=== PATIENT | female | born 1985 | race African-American/Black ===

== ENCOUNTER 2016-10-25 13:32 | Emergency (ER) | payer OTHER ==
[2016-10-25 14:43] LABS: Glucose,Whole Blood 519 mg/dL (75-99)
[2016-10-25] MEDS ORDERED: SODIUM CHLORIDE 0.9% 1,000 ML IV ONE ×2 (14:43→17:30)
[2016-10-25] MEDS ORDERED: SODIUM CHLORIDE 0.9% 1,000 ML IV SCH (14:45)
--- NOTE | 2016-10-25 14:56 | ED ---
Back Pain HPI - General Chief Complaint: Back Pain/Injury Stated Complaint: Leg and Back Pain Time Seen by Provider: 10/25/16 14:17 Source: patient, RN notes reviewed, old records reviewed Limitations: no limitations - History of Present Illness Initial Comments: Is a 31-year-old female chief complaint of bilateral leg cramps for the past few days. Patient states she also has some lower back pain. She reports that she's had lower back pain with this previously diagnosed with a UTI. Just states she is a type II diabetic and has not been taking her Lantus or Humalog for the past 3 weeks. She does not take her blood sugar she has an elevated glucometer. Patient states that she feels thirsty and has been taking more frequently. She denies any fever or chills, abdominal pain, nausea or vomiting. - Related Data Home Medications Medication Instructions Recorded Confirmed INSULIN LISPRO (humaLOG) [humaLOG 15 unit SQ AC-TID 10/09/14 10/25/16 (formulary)] Insulin Glargine [Lantus] 30 unit SQ HS 10/09/14 10/25/16 Previous Rx's Medication Instructions Recorded Cyclobenzaprine [Flexeril] 10 mg PO TID #20 tab 10/25/16 Insulin Glargine [Lantus] 30 unit SQ HS #6 vial 10/25/16 Insulin Lispro [humaLOG] 15 units SQ ACHS #6 vial 10/25/16 Nitrofurantoin Monohyd/M-Cryst 100 mg PO Q12HR #14 cap 10/25/16 [Macrobid] Allergies Allergy/AdvReac Type Severity Reaction Status Date / Time shellfish derived Allergy Anaphylaxis Verified 10/25/16 14:51 Review of Systems ROS Statement: Those systems with pertinent positive or pertinent negative responses have been documented in the HPI. ROS Other: All systems not noted in ROS Statement are negative. Past Medical History Past Medical History: Diabetes Mellitus History of Any Multi-Drug Resistant Organisms: None Reported Past Surgical History: Section Additional Past Surgical History / Comment(s): x 2 Past Anesthesia/Blood Transfusion Reactions: No Reported Reaction, Previous Problems w/ Anesthesia Past Psychological History: No Psychological Hx Reported Smoking Status: Never smoker Past Alcohol Use History: None Reported Past Drug Use History: None Reported - Past Family History Father Family Medical History: Cancer, Diabetes Mellitus Additional Family Medical History / Comment(s): Diabetes also on mother's side; Heart disease General Exam - General Exam Comments Initial Comments: Pleasant 31-year-old female. Patient appears in no acute distress. Limitations: no limitations General appearance: alert, in no apparent distress Head exam: Present: atraumatic, normocephalic, normal inspection Eye exam: Present: normal appearance, PERRL, EOMI. Absent: scleral icterus, conjunctival injection, periorbital swelling ENT exam: Present: normal exam, mucous membranes moist Neck exam: Present: normal inspection. Absent: tenderness, meningismus, lymphadenopathy Respiratory exam: Present: normal lung sounds bilaterally. Absent: respiratory distress, wheezes, rales, rhonchi, stridor Cardiovascular Exam: Present: regular rate, normal rhythm, normal heart sounds. Absent: systolic murmur, diastolic murmur, rubs, gallop, clicks GI/Abdominal exam: Present: soft, normal bowel sounds. Absent: distended, tenderness, guarding, rebound, rigid Extremities exam: Present: normal inspection, full ROM, normal capillary refill. Absent: tenderness, pedal edema, joint swelling, calf tenderness Back exam: Present: normal inspection Neurological exam: Present: alert, oriented X3, CN II-XII intact Psychiatric exam: Present: normal affect, normal mood Skin exam: Present: warm, dry, intact, normal color. Absent: rash Course Vital Signs 10/25/16 10/25/16 10/25/16 14:09 16:30 19:17 Temperature 98 F 98.2 F 98.7 F Pulse Rate 90 73 81 Respiratory 17 18 19 Rate Blood Pressure 129/71 114/71 108/57 O2 Sat by Pulse 97 100 100 Oximetry Medical Decision Making - Medical Decision Making Is a 31-year-old female chief complaint of bilateral leg cramps for the past few days. Patient states she also has some lower back pain. She reports that she's had lower back pain with this previously diagnosed with a UTI. Just states she is a type II diabetic and has not been taking her Lantus or Humalog for the past 3 weeks. She does not take her blood sugar she has an elevated glucometer. Patient initial glocose is 570, patient given IV with fluids and labs obtained. Acetone negative. Urine positive for glucose, as well as many WBC. Denies vaginal discharge. Patient will be started on Marcrobid. Patient lumbar spine xray is negative. Patient given Norflex for back spasms. Patient given tyenol for a headache, and it has improved. Selvin will be discharged with refills for lantus and humalog, discussed she needs to follow up with PCP right away, and discussd the importance of maintaining her sugars. Patient discharged with BG was 201. Patient agrees with treatment plan and will comply. - Lab Data Result diagrams: 10/25/16 15:00 10/25/16 15:00 Lab Results 10/25/16 10/25/16 10/25/16 Range/Units 14:39 15:00 15:00 WBC 3.0 L (3.8-10.6) k/uL RBC 4.56 (3.80-5.40) m/uL Hgb 12.2 (11.4-16.0) gm/dL Hct 38.3 (34.0-46.0) % MCV 84.0 (80.0-100.0) fL MCH 26.9 (25.0-35.0) pg MCHC 32.0 (31.0-37.0) g/dL RDW 13.8 (11.5-15.5) % Plt Count 228 (150-450) k/uL Neutrophils % (Manual) 45.0 % Lymphocytes % (Manual) 52.0 % Monocytes % (Manual) 3.0 % Neutrophils # (Manual) 1.4 (1.3-7.7) k/uL Lymphocytes # (Manual) 1.6 (1.0-4.8) k/uL Monocytes # (Manual) 0.1 (0-1.0) k/uL Nucleated RBCs 0 (0-0) /100 WBC Manual Slide Review Performed Sodium 134 L (137-145) mmol/L Potassium 4.0 (3.5-5.1) mmol/L Chloride 97 L (98-107) mmol/L Carbon Dioxide 28 (22-30) mmol/L Anion Gap 9 mmol/L BUN 5 L (7-17) mg/dL Creatinine 0.53 (0.52-1.04) mg/dL Est GFR (MDRD) Af Amer >60 (>60 ml/min/1.73 sqM) Est GFR (MDRD) Non-Af >60 (>60 ml/min/1.73 sqM) Glucose 560 H* (74-99) mg/dL POC Glucose (mg/dL) 519 H (75-99) mg/dL POC Glu Loan Review Manager Mavis Felipe Calcium 9.1 (8.4-10.2) mg/dL Total Bilirubin 0.4 (0.2-1.3) mg/dL AST 22 (14-36) U/L ALT 25 (9-52) U/L Alkaline Phosphatase 108 (38-126) U/L Total Protein 7.8 (6.3-8.2) g/dL Albumin 3.8 (3.5-5.0) g/dL Urine Color Urine Appearance (Clear) Urine pH (5.0-8.0) Ur Specific [place] (1.001-1.035) Urine Protein (Negative) Urine Glucose (UA) (Negative) Urine Ketones (Negative) Urine Blood (Negative) Urine Nitrite (Negative) Urine Bilirubin (Negative) Urine Urobilinogen (<2.0) mg/dL Ur Leukocyte Esterase (Negative) Urine RBC (0-5) /hpf Urine WBC (0-5) /hpf Ur Squamous Epith Cells (0-4) /hpf Urine Bacteria (None) /hpf Urine Yeast (Budding) (None) /hpf Urine HCG, Qual (Not Detectd) Acetone, Qual Negative (Negative) 10/25/16 10/25/16 10/25/16 Range/Units 15:00 15:00 16:24 WBC (3.8-10.6) k/uL RBC (3.80-5.40) m/uL Hgb (11.4-16.0) gm/dL Hct (34.0-46.0) % MCV (80.0-100.0) fL MCH (25.0-35.0) pg MCHC (31.0-37.0) g/dL RDW (11.5-15.5) % Plt Count (150-450) k/uL Neutrophils % (Manual) % Lymphocytes % (Manual) % Monocytes % (Manual) % Neutrophils # (Manual) (1.3-7.7) k/uL Lymphocytes # (Manual) (1.0-4.8) k/uL Monocytes # (Manual) (0-1.0) k/uL Nucleated RBCs (0-0) /100 WBC Manual Slide Review Sodium (137-145) mmol/L Potassium (3.5-5.1) mmol/L Chloride (98-107) mmol/L Carbon Dioxide (22-30) mmol/L Anion Gap mmol/L BUN (7-17) mg/dL Creatinine (0.52-1.04) mg/dL Est GFR (MDRD) Af Amer (>60 ml/min/1.73 sqM) Est GFR (MDRD) Non-Af (>60 ml/min/1.73 sqM) Glucose (74-99) mg/dL POC Glucose (mg/dL) 421 H (75-99) mg/dL POC Glu Loan Review Manager ID Brian De Los Santos Calcium (8.4-10.2) mg/dL Total Bilirubin (0.2-1.3) mg/dL AST (14-36) U/L ALT (9-52) U/L Alkaline Phosphatase (38-126) U/L Total Protein (6.3-8.2) g/dL Albumin (3.5-5.0) g/dL Urine Color Colorless Urine Appearance Cloudy H (Clear) Urine pH 5.5 (5.0-8.0) Ur Specific [place] 1.031 (1.001-1.035) Urine Protein Negative (Negative) Urine Glucose (UA) 4+ H (Negative) Urine Ketones Negative (Negative) Urine Blood Negative (Negative) Urine Nitrite Negative (Negative) Urine Bilirubin Negative (Negative) Urine Urobilinogen <2.0 (<2.0) mg/dL Ur Leukocyte Esterase Large H (Negative) Urine RBC 4 (0-5) /hpf Urine WBC 53 H (0-5) /hpf Ur Squamous Epith Cells 4 (0-4) /hpf Urine Bacteria Rare H (None) /hpf Urine Yeast (Budding) Rare H (None) /hpf Urine HCG, Qual Not Detected (Not Detectd) Acetone, Qual (Negative) 10/25/16 Range/Units 19:07 WBC (3.8-10.6) k/uL RBC (3.80-5.40) m/uL Hgb (11.4-16.0) gm/dL Hct (34.0-46.0) % MCV (80.0-100.0) fL MCH (25.0-35.0) pg MCHC (31.0-37.0) g/dL RDW (11.5-15.5) % Plt Count (150-450) k/uL Neutrophils % (Manual) % Lymphocytes % (Manual) % Monocytes % (Manual) % Neutrophils # (Manual) (1.3-7.7) k/uL Lymphocytes # (Manual) (1.0-4.8) k/uL Monocytes # (Manual) (0-1.0) k/uL Nucleated RBCs (0-0) /100 WBC Manual Slide Review Sodium (137-145) mmol/L Potassium (3.5-5.1) mmol/L Chloride (98-107) mmol/L Carbon Dioxide (22-30) mmol/L Anion Gap mmol/L BUN (7-17) mg/dL Creatinine (0.52-1.04) mg/dL Est GFR (MDRD) Af Amer (>60 ml/min/1.73 sqM) Est GFR (MDRD) Non-Af (>60 ml/min/1.73 sqM) Glucose (74-99) mg/dL POC Glucose (mg/dL) 210 H (75-99) mg/dL POC Glu Loan Review Manager ID Calcium (8.4-10.2) mg/dL Total Bilirubin (0.2-1.3) mg/dL AST (14-36) U/L ALT (9-52) U/L Alkaline Phosphatase (38-126) U/L Total Protein (6.3-8.2) g/dL Albumin (3.5-5.0) g/dL Urine Color Urine Appearance (Clear) Urine pH (5.0-8.0) Ur Specific [place] (1.001-1.035) Urine Protein (Negative) Urine Glucose (UA) (Negative) Urine Ketones (Negative) Urine Blood (Negative) Urine Nitrite (Negative) Urine Bilirubin (Negative) Urine Urobilinogen (<2.0) mg/dL Ur Leukocyte Esterase (Negative) Urine RBC (0-5) /hpf Urine WBC (0-5) /hpf Ur Squamous Epith Cells (0-4) /hpf Urine Bacteria (None) /hpf Urine Yeast (Budding) (None) /hpf Urine HCG, Qual (Not Detectd) Acetone, Qual (Negative) - Radiology Data Radiology results: report reviewed Spine x-ray shows no acute process. Disposition Clinical Impression: Muscle ache, Uncontrolled diabetes mellitus, Hyperglycemia due to type 2 diabetes mellitus, UTI (urinary tract infection) Disposition: HOME SELF-CARE Condition: Good Instructions: Acute Low Back Pain (ED) Additional Instructions: Patient was sitting Motrin Tylenol muscle extra for pain. Patient needs to fill insulin prescriptions and take insulin as she is supposed to. Follow-up with your primary care provider next week. Return to emergency department if any alarming signs or symptoms occur. Follow-up with primary care provider on Friday or soon as possible. Prescriptions: Cyclobenzaprine [Flexeril] 10 mg PO TID #20 tab Insulin Glargine [Lantus] 30 unit SQ HS #6 vial Insulin Lispro [humaLOG] 15 units SQ ACHS #6 vial Nitrofurantoin Monohyd/M-Cryst [Macrobid] 100 mg PO Q12HR #14 cap Referrals: Rober Cantu MD [Primary Care Provider] - 1-2 days Time of Disposition: 17:59
[2016-10-25 15:34] LABS: ALT 25 U/L (9-52); AST 22 U/L (14-36); Alkaline Phosphatase 108 U/L (38-126); Anion Gap 9 mmol/L; Blood Urea Nitrogen 5 mg/dL (7-17); Calcium 9.1 mg/dL (8.4-10.2); Carbon Dioxide 28 mmol/L (22-30); Chloride 97 mmol/L (98-107); Non-African American GFR(MDRD) >60 (>60 ml/min/1.73 sqM); Sodium 134 mmol/L (137-145); Total Bilirubin 0.4 mg/dL (0.2-1.3); Total Protein 7.8 g/dL (6.3-8.2)
[2016-10-25 15:43] LABS: Glucose 560 mg/dL (74-99)
[2016-10-25 15:51] LABS: Aty Lym Flag Slight; CH 26.8; HCT 38.3 % (34.0-46.0); HDW 2.63; HGB 12.2 gm/dL (11.4-16.0); MCH 26.9 pg (25.0-35.0); Mean Platelet Volume 7.1; RBC 4.56 m/uL (3.80-5.40); RDW 13.8 % (11.5-15.5); WBC (Perox) 2.78
[2016-10-25 15:53] LABS: Appearance,Urine Cloudy (Clear); Bacteria,Urine Rare /hpf; Bilirubin,Urine Negative (Negative); Glucose,Urine (UA) 4+ (Negative); Ketones,Urine Negative (Negative); Leukocyte Esterase,Urine Large (Negative); Nitrite,Urine Negative (Negative); PH, Urine 5.5 (5.0-8.0); Particle Count 7345; Protein,Urine Negative (Negative); RBC,Urine 4 /hpf (0-5); Specific Gravity,Urine 1.031 (1.001-1.035); Squamous Epithelial Cell,Urine 4 /hpf (0-4); UA Billing (MACRO vs. MICRO) MICRO; Urobilinogen,Urine <2.0 mg/dL (<2.0); WBC,Urine 53 /hpf (0-5)
--- NOTE | 2016-10-25 15:56 | XR ---
EXAM TYPE: LUMBAR SPINE X RAY SERIES COMPARISON: NONE HISTORY: Pain TECHNIQUE: 4 views are submitted. FINDINGS: Alignment is anatomic. The pedicles are intact. The transverse processes are in hypertrophic spurri ng is seen at L1 and T12. Tact. There is no spondylolysis or spondylolisthesis. IMPRESSION: 1. No acute process.
[2016-10-25 16:26] LABS: Glucose,Whole Blood 421 mg/dL (75-99)
[2016-10-25] MEDS ORDERED: INSULIN REGULAR 100 UNIT in SODIUM CHLORIDE 0.9% 100 ML IV ONE (17:00)
[2016-10-25] MEDS ORDERED: INSULIN REGULAR 100 UNIT/ML VIAL IV ONE (17:00)
[2016-10-25] MEDS ORDERED: ORPHENADRINE 30 MG/ML 2 ML VIAL IVP STA (17:30)
[2016-10-25] MEDS ORDERED: ACETAMINOPHEN TAB 500 MG TAB PO STA (17:30)
[2016-10-25 18:35] LABS: Add Differential Manual Differential
[2016-10-25 18:39] LABS: Manual Review Performed; Nucleated Red Blood Cells 0 /100 WBC (0-0); Total Cells Counted 100
[2016-10-25 19:09] LABS: Glucose,Whole Blood 210 mg/dL (75-99)
[2016-10-25 19:19] VITALS: BP 108/57; PULSE 81; RESP 19; TEMP 98.7
== END 2016-10-25 19:30 | disposition home or self-care (01) ==
LOC: EC 13:32
DX: E11.65 Type 2 diabetes mellitus with hyperglycemia (principal); N39.0 Urinary tract infection, site not specified; M79.1 Myalgia; Z79.4 Long term (current) use of insulin
CPT/HCPCS: 36415; 80053; 82009; 85025; 81001; 81025; 87086; 72100; 99283; 96365; 96366; 96375 ×2; 96361 ×3; J2360

== ENCOUNTER 2016-10-28 11:46 | Emergency (ER) | payer OTHER ==
[2016-10-28] MEDS ORDERED: SODIUM CHLORIDE 0.9% 1,000 ML IV STA (12:14)
[2016-10-28] MEDS ORDERED: MORPHINE SULFATE 4 MG/ML SYRINGE IVP STA (12:15)
[2016-10-28] MEDS ORDERED: KETOROLAC 30 MG/ML 1 ML VIAL IVP STA (12:15)
--- NOTE | 2016-10-28 12:31 | ED ---
General Adult HPI - General Chief complaint: Extremity Problem,Nontraumatic Stated complaint: leg pain Time Seen by Provider: 10/28/16 11:56 Source: patient, RN notes reviewed, old records reviewed Mode of arrival: ambulatory Limitations: no limitations - History of Present Illness Initial comments: This is a 31-year-old female here for evaluation today. The patient comes in for evaluation of leg pain or leg swelling increased weight gain. Patient states she is getting 5 pounds in about 6 days. 7 pounds and 3 days, states she is retaining water. She states she is having cramping and pain in both lower extremity is. She has history of diabetes no other medical issues. No trauma, no back pain. No nausea vomiting or diarrhea, no chest pain no bowel. No problems with bowel or bladder - Related Data Home Medications Medication Instructions Recorded Confirmed INSULIN LISPRO (humaLOG) [humaLOG 15 unit SQ AC-TID 10/09/14 10/28/16 (formulary)] Cyclobenzaprine [Flexeril] 10 mg PO DAILY PRN 10/28/16 10/28/16 Previous Rx's Medication Instructions Recorded Insulin Glargine [Lantus] 30 unit SQ HS #6 vial 10/25/16 HYDROcodone/APAP 5-325MG [[place] 1 tab PO Q6HR PRN #30 tab 10/28/16 5-325] Nitrofurantoin Monohyd/M-Cryst 100 mg PO Q12HR #10 cap 10/28/16 [Macrobid] Allergies Allergy/AdvReac Type Severity Reaction Status Date / Time shellfish derived Allergy Anaphylaxis Verified 10/28/16 12:13 Review of Systems ROS Statement: Those systems with pertinent positive or pertinent negative responses have been documented in the HPI. ROS Other: All systems not noted in ROS Statement are negative. Past Medical History Past Medical History: Diabetes Mellitus History of Any Multi-Drug Resistant Organisms: None Reported Past Surgical History: Section Additional Past Surgical History / Comment(s): x 2 Past Anesthesia/Blood Transfusion Reactions: No Reported Reaction, Previous Problems w/ Anesthesia Past Psychological History: No Psychological Hx Reported Smoking Status: Never smoker Past Alcohol Use History: None Reported Past Drug Use History: None Reported - Past Family History Father Family Medical History: Cancer, Diabetes Mellitus Additional Family Medical History / Comment(s): Diabetes also on mother's side; Heart disease General Exam Limitations: no limitations General appearance: alert, in no apparent distress Head exam: Present: atraumatic, normocephalic, normal inspection Eye exam: Present: normal appearance, PERRL, EOMI. Absent: scleral icterus, conjunctival injection, periorbital swelling ENT exam: Present: normal exam, mucous membranes moist Neck exam: Present: normal inspection. Absent: tenderness, meningismus, lymphadenopathy Respiratory exam: Present: normal lung sounds bilaterally. Absent: respiratory distress, wheezes, rales, rhonchi, stridor Cardiovascular Exam: Present: regular rate, normal rhythm, normal heart sounds. Absent: systolic murmur, diastolic murmur, rubs, gallop, clicks GI/Abdominal exam: Present: soft, normal bowel sounds. Absent: distended, tenderness, guarding, rebound, rigid Extremities exam: Present: normal inspection, full ROM, normal capillary refill. Absent: tenderness, pedal edema, joint swelling, calf tenderness Back exam: Present: normal inspection Neurological exam: Present: alert, oriented X3, CN II-XII intact Psychiatric exam: Present: normal affect, normal mood Skin exam: Present: warm, dry, intact, normal color. Absent: rash Course Vital Signs 10/28/16 10/28/16 10/28/16 11:48 13:57 14:56 Temperature 98.4 F 98.4 F 98.6 F Pulse Rate 76 82 78 Respiratory 16 18 20 Rate Blood Pressure 134/75 116/62 121/67 O2 Sat by Pulse 99 99 97 Oximetry Medical Decision Making - Medical Decision Making 31 female here with nonspecific leg pain, continued urinary check infection we' ll culture urine. Switch antibiotic, patient will also be given pain control. Patient appears to be suffering from some diabetic neuropathy, patient will follow up with outpatient physician as directed - Lab Data Result diagrams: 10/28/16 12:30 10/28/16 12:30 Lab Results 10/28/16 10/28/16 10/28/16 Range/Units 12:30 12:30 12:30 WBC 2.7 L (3.8-10.6) k/uL RBC 4.61 (3.80-5.40) m/uL Hgb 12.2 (11.4-16.0) gm/dL Hct 38.4 (34.0-46.0) % MCV 83.2 (80.0-100.0) fL MCH 26.4 (25.0-35.0) pg MCHC 31.7 (31.0-37.0) g/dL RDW 14.1 (11.5-15.5) % Plt Count 256 (150-450) k/uL Neutrophils % 42 % Lymphocytes % 47 % Monocytes % 6 % Eosinophils % 1 % Basophils % 0 % Neutrophils # 1.1 L (1.3-7.7) k/uL Lymphocytes # 1.3 (1.0-4.8) k/uL Monocytes # 0.2 (0-1.0) k/uL Eosinophils # 0.0 (0-0.7) k/uL Basophils # 0.0 (0-0.2) k/uL Sodium 141 (137-145) mmol/L Potassium 3.8 (3.5-5.1) mmol/L Chloride 104 (98-107) mmol/L Carbon Dioxide 29 (22-30) mmol/L Anion Gap 8 mmol/L BUN 4 L (7-17) mg/dL Creatinine 0.50 L (0.52-1.04) mg/dL Est GFR (MDRD) Af Amer >60 (>60 ml/min/1.73 sqM) Est GFR (MDRD) Non-Af >60 (>60 ml/min/1.73 sqM) Glucose 280 H (74-99) mg/dL Calcium 9.3 (8.4-10.2) mg/dL Phosphorus 4.2 (2.5-4.5) mg/dL Magnesium 1.4 L (1.6-2.3) mg/dL Total Bilirubin 0.3 (0.2-1.3) mg/dL AST 48 H (14-36) U/L ALT 37 (9-52) U/L Alkaline Phosphatase 85 (38-126) U/L Total Creatine Kinase 347 H (30-135) U/L CK-MB (CK-2) 4.2 H* (0.0-2.4) ng/mL CK-MB (CK-2) Rel Index 1.2 Troponin I <0.012 (0.000-0.034) ng/mL Total Protein 7.3 (6.3-8.2) g/dL Albumin 3.5 (3.5-5.0) g/dL Urine Color Urine Appearance (Clear) Urine pH (5.0-8.0) Ur Specific [place] (1.001-1.035) Urine Protein (Negative) Urine Glucose (UA) (Negative) Urine Ketones (Negative) Urine Blood (Negative) Urine Nitrite (Negative) Urine Bilirubin (Negative) Urine Urobilinogen (<2.0) mg/dL Ur Leukocyte Esterase (Negative) Urine WBC (0-5) /hpf Ur Squamous Epith Cells (0-4) /hpf Urine Mucus (None) /hpf Acetone, Qual Negative (Negative) 10/28/16 Range/Units 12:30 WBC (3.8-10.6) k/uL RBC (3.80-5.40) m/uL Hgb (11.4-16.0) gm/dL Hct (34.0-46.0) % MCV (80.0-100.0) fL MCH (25.0-35.0) pg MCHC (31.0-37.0) g/dL RDW (11.5-15.5) % Plt Count (150-450) k/uL Neutrophils % % Lymphocytes % % Monocytes % % Eosinophils % % Basophils % % Neutrophils # (1.3-7.7) k/uL Lymphocytes # (1.0-4.8) k/uL Monocytes # (0-1.0) k/uL Eosinophils # (0-0.7) k/uL Basophils # (0-0.2) k/uL Sodium (137-145) mmol/L Potassium (3.5-5.1) mmol/L Chloride (98-107) mmol/L Carbon Dioxide (22-30) mmol/L Anion Gap mmol/L BUN (7-17) mg/dL Creatinine (0.52-1.04) mg/dL Est GFR (MDRD) Af Amer (>60 ml/min/1.73 sqM) Est GFR (MDRD) Non-Af (>60 ml/min/1.73 sqM) Glucose (74-99) mg/dL Calcium (8.4-10.2) mg/dL Phosphorus (2.5-4.5) mg/dL Magnesium (1.6-2.3) mg/dL Total Bilirubin (0.2-1.3) mg/dL AST (14-36) U/L ALT (9-52) U/L Alkaline Phosphatase (38-126) U/L Total Creatine Kinase (30-135) U/L CK-MB (CK-2) (0.0-2.4) ng/mL CK-MB (CK-2) Rel Index Troponin I (0.000-0.034) ng/mL Total Protein (6.3-8.2) g/dL Albumin (3.5-5.0) g/dL Urine Color Light Yellow Urine Appearance Clear (Clear) Urine pH 5.5 (5.0-8.0) Ur Specific [place] 1.016 (1.001-1.035) Urine Protein Negative (Negative) Urine Glucose (UA) 4+ H (Negative) Urine Ketones Negative (Negative) Urine Blood Negative (Negative) Urine Nitrite Negative (Negative) Urine Bilirubin Negative (Negative) Urine Urobilinogen <2.0 (<2.0) mg/dL Ur Leukocyte Esterase Moderate H (Negative) Urine WBC 12 H (0-5) /hpf Ur Squamous Epith Cells 3 (0-4) /hpf Urine Mucus Rare H (None) /hpf Acetone, Qual (Negative) Disposition Clinical Impression: Diabetic nephropathy, UTI (urinary tract infection) Disposition: HOME SELF-CARE Condition: Good Instructions: Diabetic Peripheral Neuropathy (ED), Paresthesia (ED), Urinary Tract Infection in Women (ED) Prescriptions: HYDROcodone/APAP 5-325MG [[place] 5-325] 1 tab PO Q6HR PRN #30 tab PRN Reason: Pain Nitrofurantoin Monohyd/M-Cryst [Macrobid] 100 mg PO Q12HR #10 cap Referrals: Rober Cantu MD [Primary Care Provider] - 1-2 days
[2016-10-28 13:46] LABS: Appearance,Urine Clear (Clear); Bilirubin,Urine Negative (Negative); Glucose,Urine (UA) 4+ (Negative); Ketones,Urine Negative (Negative); Leukocyte Esterase,Urine Moderate (Negative); Mucus,Urine Rare /hpf; Nitrite,Urine Negative (Negative); PH, Urine 5.5 (5.0-8.0); Particle Count 3411; Protein,Urine Negative (Negative); Specific Gravity,Urine 1.016 (1.001-1.035); Squamous Epithelial Cell,Urine 3 /hpf (0-4); UA Billing (MACRO vs. MICRO) MICRO; Urobilinogen,Urine <2.0 mg/dL (<2.0); WBC,Urine 12 /hpf (0-5)
[2016-10-28 13:56] LABS: Creatine Kinase 347 U/L (30-135)
[2016-10-28 13:58] LABS: ALT 37 U/L (9-52); AST 48 U/L (14-36); Alkaline Phosphatase 85 U/L (38-126); Anion Gap 8 mmol/L; Blood Urea Nitrogen 4 mg/dL (7-17); Calcium 9.3 mg/dL (8.4-10.2); Carbon Dioxide 29 mmol/L (22-30); Chloride 104 mmol/L (98-107); Glucose 280 mg/dL (74-99); Magnesium 1.4 mg/dL (1.6-2.3); Non-African American GFR(MDRD) >60 (>60 ml/min/1.73 sqM); Phosphorous 4.2 mg/dL (2.5-4.5); Potassium 3.8 mmol/L (3.5-5.1); Sodium 141 mmol/L (137-145); Total Bilirubin 0.3 mg/dL (0.2-1.3); Total Protein 7.3 g/dL (6.3-8.2)
[2016-10-28 13:59] LABS: Basophils % (A) 0 %; CH 26.7; CHCM 32.3; Eosinophils % (A) 1 %; HCT 38.4 % (34.0-46.0); HDW 2.67; HGB 12.2 gm/dL (11.4-16.0); Luc # (Auto) 0.11; Luc % (Auto) 4; Lymphocytes # (A) 1.3 k/uL (1.0-4.8); Lymphocytes % (A) 47 %; MCH 26.4 pg (25.0-35.0); MCHC 31.7 g/dL (31.0-37.0); MCV 83.2 fL (80.0-100.0); Mean Platelet Volume 6.8; Monocytes # (A) 0.2 k/uL (0-1.0); Monocytes % (A) 6 %; Neutrophils # (A) 1.1 k/uL (1.3-7.7); Neutrophils % (A) 42 %; RBC 4.61 m/uL (3.80-5.40); RDW 14.1 % (11.5-15.5); WBC 2.7 k/uL (3.8-10.6); WBC (Perox) 2.33
[2016-10-28 14:09] LABS: Troponin I <0.012 ng/mL (0.000-0.034)
[2016-10-28 14:17] LABS: Creatine Kinase MB 4.2 ng/mL (0.0-2.4)
[2016-10-28] MEDS ORDERED: NITROFURANTOIN MONOHYD/M-CRYST 100 MG CAP PO STA (14:33)
[2016-10-28 14:59] VITALS: BP 121/67; PULSE 78; RESP 20; TEMP 98.6
== END 2016-10-28 14:59 | disposition home or self-care (01) ==
LOC: EC 11:46
DX: E11.21 Type 2 diabetes mellitus with diabetic nephropathy (principal); N39.0 Urinary tract infection, site not specified; Z79.4 Long term (current) use of insulin; Z91.013 Allergy to seafood; Z83.3 Family history of diabetes mellitus
CPT/HCPCS: 36415; 80053; 82550; 82553; 82009; 83735; 84100; 84484; 85025; 81001; 87491; 87591; 87086; 99284; 96374; 96375; 96361 ×2; J2270; J1885

== ENCOUNTER 2016-11-05 09:21 | Emergency (ER) | payer OTHER ==
[2016-11-05 09:26] VITALS: BP 125/77; PULSE 82; RESP 20; TEMP 98.7
--- NOTE | 2016-11-05 09:43 | ED ---
Skin/Abscess/FB HPI - General Chief complaint: Skin/Abscess/Foreign Body Stated complaint: Rash Time Seen by Provider: 11/05/16 09:35 Source: patient, RN notes reviewed Mode of arrival: ambulatory Limitations: no limitations - History of Present Illness Initial comments: 31-year-old female presents emergency Department chief complaint right leg rash. She states has been there for few days to week. Patient states it hurts masters. Patient states her small blisterlike areas. She states she's been using antibiotic ointment no relief and also is currently taking antibiotics for UTI. Patient has fever, chills. Patient has had chickenpox in the past. Patient states that she seems to have pain that radiates down her leg. Denies any new soaps lotions or detergents. - Related Data Home Medications Medication Instructions Recorded Confirmed INSULIN LISPRO (humaLOG) [humaLOG 15 unit SQ AC-TID 10/09/14 10/28/16 (formulary)] Cyclobenzaprine [Flexeril] 10 mg PO DAILY PRN 10/28/16 10/28/16 Previous Rx's Medication Instructions Recorded Insulin Glargine [Lantus] 30 unit SQ HS #6 vial 10/25/16 HYDROcodone/APAP 5-325MG [[place] 1 tab PO Q6HR PRN #30 tab 10/28/16 5-325] Nitrofurantoin Monohyd/M-Cryst 100 mg PO Q12HR #10 cap 10/28/16 [Macrobid] valACYclovir HCL [Valtrex] 1,000 mg PO Q8HR #30 tab 11/05/16 Allergies Allergy/AdvReac Type Severity Reaction Status Date / Time shellfish derived Allergy Anaphylaxis Verified 10/28/16 12:13 Review of Systems ROS Statement: Those systems with pertinent positive or pertinent negative responses have been documented in the HPI. ROS Other: All systems not noted in ROS Statement are negative. Past Medical History Past Medical History: Diabetes Mellitus History of Any Multi-Drug Resistant Organisms: None Reported Past Surgical History: Section Additional Past Surgical History / Comment(s): x 2 Past Anesthesia/Blood Transfusion Reactions: No Reported Reaction, Previous Problems w/ Anesthesia Past Psychological History: No Psychological Hx Reported Smoking Status: Never smoker Past Alcohol Use History: None Reported Past Drug Use History: None Reported - Past Family History Father Family Medical History: Cancer, Diabetes Mellitus Additional Family Medical History / Comment(s): Diabetes also on mother's side; Heart disease General Exam Limitations: no limitations General appearance: alert, in no apparent distress Respiratory exam: Present: normal lung sounds bilaterally. Absent: respiratory distress, wheezes, rales, rhonchi, stridor Cardiovascular Exam: Present: regular rate, normal rhythm, normal heart sounds. Absent: systolic murmur, diastolic murmur, rubs, gallop, clicks Extremities exam: Present: full ROM, normal capillary refill. Absent: normal inspection (Right groin region there is vesicles noted with surrounding erythema ), tenderness, pedal edema, joint swelling, calf tenderness Course Vital Signs 11/05/16 09:23 Temperature 98.7 F Pulse Rate 82 Respiratory 20 Rate Blood Pressure 125/77 O2 Sat by Pulse 99 Oximetry Medical Decision Making - Medical Decision Making 31-year-old female presented for rash. Patient has vesicles that may be consistent with shingles. We did discuss possible foot colitis-type changes. Patient was placed on antivirals at this time advised to use antibacterial soap such as Dial and to continue antibacterial ointments. Return parameters were discussed. Disposition Clinical Impression: Herpes zoster Disposition: HOME SELF-CARE Condition: Stable Instructions: Shingles (ED) Additional Instructions: Please return to the Emergency Department if symptoms worsen or any other concerns. Prescriptions: valACYclovir HCL [Valtrex] 1,000 mg PO Q8HR #30 tab Time of Disposition: 09:42
== END 2016-11-05 09:52 | disposition home or self-care (01) ==
LOC: EC 09:21
DX: B02.9 Zoster without complications (principal); E11.9 Type 2 diabetes mellitus without complications; Z91.013 Allergy to seafood; Z79.4 Long term (current) use of insulin
CPT/HCPCS: 99282

== ENCOUNTER 2016-12-23 14:24 | Emergency (ER) | payer OTHER ==
[2016-12-23 14:32] VITALS: BP 128/79; PULSE 84; RESP 18; TEMP 98.4
[2016-12-23] MEDS ORDERED: IBUPROFEN 800 MG TAB PO STA (14:46)
--- NOTE | 2016-12-23 15:03 | XR ---
Left ankle HISTORY: Medial pain and swelling 3 views of the left ankle No comparisons Soft tissue swelling is noted. Bone mineralization, joint spaces and alignment are maintained. No fra cture or dislocation evident. IMPRESSION: Soft tissue swelling
[2016-12-23 15:17] LABS: Glucose,Whole Blood 76 mg/dL (75-99)
--- NOTE | 2016-12-23 15:32 | ED ---
Extremity Problem HPI - General Chief complaint: Extremity Problem,Nontraumatic Stated complaint: Ankle swelling Time Seen by Provider: 12/23/16 14:34 Source: patient Mode of arrival: ambulatory Limitations: no limitations - History of Present Illness Initial comments: Patient is a 31-year-old female presenting to the emergency department with complaints of left medial ankle pain that started 2 days ago. Patient doesn't recall any trauma or injury. Patient is currently rating pain 8, sharp, exacerbated with movement, relieved with rest. Patient denies previous injury or surgery to left lower extremity. Patient denies recent illness, fevers, nausea, vomiting, shortness of breath, chest pain, abdominal pain, numbness or tingling. Patient is able to ambulate. - Related Data Home Medications Medication Instructions Recorded Confirmed INSULIN LISPRO (humaLOG) [humaLOG 15 unit SQ AC-TID 10/09/14 10/28/16 (formulary)] Cyclobenzaprine [Flexeril] 10 mg PO DAILY PRN 10/28/16 10/28/16 Previous Rx's Medication Instructions Recorded Insulin Glargine [Lantus] 30 unit SQ HS #6 vial 10/25/16 HYDROcodone/APAP 5-325MG [[place] 1 tab PO Q6HR PRN #30 tab 10/28/16 5-325] Nitrofurantoin Monohyd/M-Cryst 100 mg PO Q12HR #10 cap 10/28/16 [Macrobid] valACYclovir HCL [Valtrex] 1,000 mg PO Q8HR #30 tab 11/05/16 Allergies Allergy/AdvReac Type Severity Reaction Status Date / Time shellfish derived Allergy Anaphylaxis Verified 12/23/16 14:32 Review of Systems ROS Statement: Those systems with pertinent positive or pertinent negative responses have been documented in the HPI. ROS Other: All systems not noted in ROS Statement are negative. Past Medical History Past Medical History: Diabetes Mellitus History of Any Multi-Drug Resistant Organisms: None Reported Past Surgical History: Section Additional Past Surgical History / Comment(s): x 2 Past Anesthesia/Blood Transfusion Reactions: No Reported Reaction, Previous Problems w/ Anesthesia Past Psychological History: No Psychological Hx Reported Smoking Status: Never smoker Past Alcohol Use History: None Reported Past Drug Use History: None Reported - Past Family History Father Family Medical History: Cancer, Diabetes Mellitus Additional Family Medical History / Comment(s): Diabetes also on mother's side; Heart disease General Exam Limitations: no limitations General appearance: alert, in no apparent distress Head exam: Present: atraumatic, normocephalic, normal inspection Eye exam: Present: normal appearance Neck exam: Present: normal inspection, full ROM. Absent: tenderness, lymphadenopathy Respiratory exam: Present: normal lung sounds bilaterally. Absent: respiratory distress, wheezes, rales, rhonchi, stridor Cardiovascular Exam: Present: regular rate, normal rhythm, normal heart sounds. Absent: systolic murmur, diastolic murmur, rubs, gallop, clicks GI/Abdominal exam: Present: soft, normal bowel sounds. Absent: distended, tenderness, guarding, rebound, rigid Left Hip exam: Present: normal inspection, full ROM. Absent: tenderness, swelling Upper Leg exam: Present: normal inspection, full ROM. Absent: tenderness, swelling Knee exam: Present: normal inspection, full ROM. Absent: tenderness, swelling Lower Leg exam: Present: normal inspection, full ROM. Absent: tenderness, swelling Ankle exam: Present: normal inspection, full ROM, tenderness (Tenderness and swelling, mild, noted to medial malleolus), swelling Foot/Toe exam: Present: normal inspection, full ROM. Absent: tenderness, swelling Neurovascular tendon exam: Present: no vascular compromise. Absent: pulse deficit, abnormal cap refill, motor deficit, sensory deficit, tendon deficit, extremity cold to touch, pallor, decreased fine/light touch, foot drop, significant pain with passive ROM of distal joint Gait: antalgic Back exam: Present: normal inspection, full ROM Neurological exam: Present: alert, oriented X3, other (No focal deficits noted) Psychiatric exam: Present: normal affect, normal mood Skin exam: Present: warm, dry, intact, normal color Course Vital Signs 12/23/16 14:31 Temperature 98.4 F Pulse Rate 84 Respiratory 18 Rate Blood Pressure 128/79 O2 Sat by Pulse 99 Oximetry Medical Decision Making - Medical Decision Making Right ankle sprain. X-ray right ankle negative for fracture dislocation. Erik wrap applied. Patient instructed to continue Motrin and ice with elevation. Patient instructed to follow-up with orthopedic service of pain persist more than 7-10 days. Patient agrees with treatment plan. Discharge instructions and return parameters reviewed. - Radiology Data Radiology results: report reviewed X-ray left ankle: No fracture or dislocation evident. Soft tissue swelling. Disposition Clinical Impression: Left ankle sprain Disposition: HOME SELF-CARE Condition: Good Instructions: Ankle Sprain (ED) Additional Instructions: Avoid activity that causes pain Ice 20 minutes 4 times a day usually for 2-3 days Erik wrap to provide support and limit swelling Keep elevated as much as possible 24-48 hours. Continue Motrin 3 times daily for inflammation. Return to the emergency department with symptoms of increased swelling, pain, numbness, tingling, or foot feeling cold to touch. Follow-up with primary service and orthopedic service as directed. Referrals: Rober Cantu MD [Primary Care Provider] - 1-2 days Demetrio Schneider MD [STAFF PHYSICIAN] - 1-2 days (Follow-up in 7-10 days if pain persists.) Time of Disposition: 15:08
== END 2016-12-23 15:43 | disposition home or self-care (01) ==
LOC: EC 14:24
DX: S93.402A Sprain of unspecified ligament of left ankle, initial encounter (principal); E11.9 Type 2 diabetes mellitus without complications; Z91.013 Allergy to seafood; Z79.4 Long term (current) use of insulin; X58.XXXA Exposure to other specified factors, initial encounter
CPT/HCPCS: 36415; 99283

== ENCOUNTER 2017-01-02 16:38 | Emergency (ER) | payer OTHER ==
[2017-01-02 16:43] VITALS: TEMP 98.1
--- NOTE | 2017-01-02 17:59 | XR ---
EXAMINATION TYPE: XR ankle complete LT DATE OF EXAM: 01/02/2017 COMPARISON: NONE HISTORY: Pain TECHNIQUE: 3 views FINDINGS: Ankle mortise is anatomic. I see no fracture nor dislocation. There is soft tissue swelling over the medial malleolus. IMPRESSION: Soft tissue swelling. No fracture.
--- NOTE | 2017-01-02 18:17 | ED ---
Lower Extremity Injury HPI - General Chief Complaint: Extremity Injury, Lower Stated Complaint: Ankle Swelling Time Seen by Provider: 01/02/17 17:13 Source: patient Mode of arrival: ambulatory Limitations: no limitations - History of Present Illness Initial Comments: Patient is a 31-year-old female presenting to the emergency department with complaints of left medial ankle pain and swelling since January 20. Patient doesn' t recall any trauma or injury. Patient states she was evaluated on January 22 the emergency department for same complaint where she is diagnosed with a left ankle sprain. Patient states she's been unable to follow-up with her primary care provider or orthopedic service. Patient is currently rating pain 8, sharp , exacerbated with movement, relieved with rest. Patient denies previous injury or surgery to left lower extremity. Patient denies recent illness, fevers, nausea, vomiting, shortness of breath, chest pain, abdominal pain, numbness or tingling. Patient is able to ambulate. - Related Data Home Medications Medication Instructions Recorded Confirmed INSULIN LISPRO (humaLOG) [humaLOG 15 unit SQ AC-TID 10/09/14 01/02/17 (formulary)] Previous Rx's Medication Instructions Recorded Insulin Glargine [Lantus] 30 unit SQ HS #6 vial 10/25/16 Acetaminophen-Codeine 300-30mg 1 tab PO Q6H PRN #12 tablet 01/02/17 [Tylenol #3] Allergies Allergy/AdvReac Type Severity Reaction Status Date / Time shellfish derived Allergy Anaphylaxis Verified 01/02/17 17:16 Review of Systems ROS Statement: Those systems with pertinent positive or pertinent negative responses have been documented in the HPI. ROS Other: All systems not noted in ROS Statement are negative. Past Medical History Past Medical History: Diabetes Mellitus History of Any Multi-Drug Resistant Organisms: None Reported Past Surgical History: Section Additional Past Surgical History / Comment(s): x 2 Past Anesthesia/Blood Transfusion Reactions: No Reported Reaction, Previous Problems w/ Anesthesia Past Psychological History: No Psychological Hx Reported Smoking Status: Never smoker Past Alcohol Use History: None Reported Past Drug Use History: None Reported - Past Family History Father Family Medical History: Cancer, Diabetes Mellitus Additional Family Medical History / Comment(s): Diabetes also on mother's side; Heart disease General Exam - General Exam Comments Initial Comments: Limitations: no limitations General appearance: alert, in no apparent distress Head exam: Present: atraumatic, normocephalic, normal inspection Eye exam: Present: normal appearance Neck exam: Present: normal inspection, full ROM. Absent: tenderness, lymphadenopathy Respiratory exam: Present: normal lung sounds bilaterally. Absent: respiratory distress, wheezes, rales, rhonchi, stridor Cardiovascular Exam: Present: regular rate, normal rhythm, normal heart sounds. Absent: systolic murmur, diastolic murmur, rubs, gallop, clicks GI/Abdominal exam: Present: soft, normal bowel sounds. Absent: distended, tenderness, guarding, rebound, rigid Left Hip exam: Present: normal inspection, full ROM. Absent: tenderness, swelling Upper Leg exam: Present: normal inspection, full ROM. Absent: tenderness, swelling Knee exam: Present: normal inspection, full ROM. Absent: tenderness, swelling Lower Leg exam: Present: normal inspection, full ROM. Absent: tenderness, swelling Ankle exam: Present: normal inspection, full ROM, tenderness (Tenderness and swelling, mild, noted to medial malleolus) Foot/Toe exam: Present: normal inspection, full ROM. Absent: tenderness, swelling Neurovascular tendon exam: Present: no vascular compromise. Absent: pulse deficit, abnormal cap refill, motor deficit, sensory deficit, tendon deficit, extremity cold to touch, pallor, decreased fine/light touch, foot drop, significant pain with passive ROM of distal joint Gait: antalgic Back exam: Present: normal inspection, full ROM Neurological exam: Present: alert, oriented X3, other (No focal deficits noted) Psychiatric exam: Present: normal affect, normal mood Skin exam: Present: warm, dry, intact, normal color Limitations: no limitations Course Vital Signs 01/02/17 16:40 Temperature 98.1 F Pulse Rate 99 Respiratory 17 Rate Blood Pressure 117/80 O2 Sat by Pulse 97 Oximetry Medical Decision Making - Medical Decision Making X-ray of left ankle with no acute dislocation or fracture. Ultrasound venous Doppler of left lower extremity with no evidence of deep vein thrombosis. Patient placed in an ankle stirrup splint. Patient provided prescription for Tylenol 3 and prescription for crutches. Patient instructed to follow-up with orthopedic service and primary care physician. Patient instructed to return to the emergency department with any new or worsening symptoms. Patient agrees to treatment plan. Discharge instructions and return parameters reviewed. - Radiology Data Radiology results: report reviewed Ultrasound venous Doppler duplex of left lower extremity: Left leg negative for DVT. X-ray of left ankle: Negative for fracture or dislocation. Disposition Clinical Impression: Left ankle sprain Disposition: HOME SELF-CARE Condition: Good Instructions: Ankle Sprain (ED), Ankle Stirrup Splint (ED) Additional Instructions: Avoid activity that causes pain Ice 20 minutes 4 times a day usually for 2-3 days Keep elevated as much as possible. Continue ice, and Tylenol 3 for moderate to severe pain. Avoid weight-bearing to left lower extremity as long as you have acute pain. Return to the emergency department with symptoms of increased swelling, pain, numbness, tingling, or foot feeling cold to touch. Follow-up with primary service and orthopedic service as directed. Prescriptions: Acetaminophen-Codeine 300-30mg [Tylenol #3] 1 tab PO Q6H PRN #12 tablet PRN Reason: Pain Referrals: Rober Cantu MD [Primary Care Provider] - 1-2 days Time of Disposition: 19:42
--- NOTE | 2017-01-02 19:20 | US ---
EXAMINATION TYPE: US venous doppler duplex LE LT DATE OF EXAM: 01/02/2017 7:14 PM COMPARISON: NONE CLINICAL HISTORY: Pain and swelling left ankle after injury 1 week ago. SIDE PERFORMED: Left TECHNIQUE: The lower extremity deep venous system is examined utilizing real time linear array sonog pamela with graded compression, doppler sonography and color-flow sonography. VESSELS IMAGED: External Iliac Vein (EIV) Common Femoral Vein Deep Femoral Vein Greater Saphenous Vein * Femoral Vein Popliteal Vein Small Saphenous Vein * Proximal Calf Veins (* superficial vessels) Left Leg: Negative for DVT IMPRESSION: Normal exam. No evidence of deep venous thrombosis in the left leg.
[2017-01-02 20:00] VITALS: BP 112/63; PULSE 83; RESP 18
== END 2017-01-02 19:57 | disposition home or self-care (01) ==
LOC: EC 16:38
DX: S93.402D Sprain of unspecified ligament of left ankle, subsequent encounter (principal); E11.9 Type 2 diabetes mellitus without complications; Z91.013 Allergy to seafood; Z79.4 Long term (current) use of insulin
CPT/HCPCS: 99283

== ENCOUNTER 2017-03-03 16:00 | Inpatient (IN) | payer OTHER ==
[2017-03-03] MEDS ORDERED: SODIUM CHLORIDE 0.9% 1,000 ML IV STA ×2 (16:48)
[2017-03-03] MEDS ORDERED: ACETAMINOPHEN IV (For NPO) 1,000 MG in SALINE 100 100ML.BAG IVPB STA (16:48)
[2017-03-03] MEDS ORDERED: ONDANSETRON 4 MG/2 ML VIAL IVP STA (16:48)
--- NOTE | 2017-03-03 17:21 | ED ---
General Adult HPI <Jonathon East - Last Filed: 03/03/17 18:06> - General Source: patient, RN notes reviewed Mode of arrival: ambulatory Limitations: no limitations <Nitin Valencia - Last Filed: 03/03/17 18:25> - General Chief complaint: Upper Respiratory Infection Stated complaint: Fever,Chills Time Seen by Provider: 03/03/17 16:41 - History of Present Illness Initial comments: Patient is a 31-year-old female who presents emergency room today with multiple complaints. She does admit that over the last 3 days she's been having increased chills and body aches. She missed that she's had some abdominal discomfort in the lower abdomen. She admits that she's also felt some congestion in her chest. She states she was taking care of her nephew was diagnosed with an upper respiratory infection. She missed that she's had increased cough congestion today. Admits running a fever. States that she last took Tylenol 6 hours ago. She denies any other complaints or symptoms. Patient denies any recent fever, chills, shortness of breath, chest pain, back pain, nausea or vomiting, numbness or tingling, dysuria or hematuria, constipation or diarrhea, headaches or visual changes, or any other complaints. (Nitin Valencia) - Related Data Home Medications Medication Instructions Recorded Confirmed INSULIN LISPRO (humaLOG) [humaLOG 15 unit SQ AC-TID 10/09/14 03/03/17 (formulary)] Insulin Glargine [Lantus] 30 unit SQ HS 03/03/17 03/03/17 Allergies Allergy/AdvReac Type Severity Reaction Status Date / Time shellfish derived Allergy Anaphylaxis Verified 03/03/17 16:41 Review of Systems ROS Other: All systems not noted in ROS Statement are negative. <Jonathon East - Last Filed: 03/03/17 18:06> ROS Other: All systems not noted in ROS Statement are negative. <Nitin Valencia - Last Filed: 03/03/17 18:25> ROS Statement: Those systems with pertinent positive or pertinent negative responses have been documented in the HPI. Past Medical History Past Medical History: Diabetes Mellitus History of Any Multi-Drug Resistant Organisms: None Reported Past Surgical History: Section Additional Past Surgical History / Comment(s): x 2 Past Anesthesia/Blood Transfusion Reactions: No Reported Reaction, Previous Problems w/ Anesthesia Past Psychological History: No Psychological Hx Reported Smoking Status: Never smoker Past Alcohol Use History: None Reported Past Drug Use History: None Reported - Past Family History Father Family Medical History: Cancer, Diabetes Mellitus Additional Family Medical History / Comment(s): Diabetes also on mother's side; Heart disease <Nitin Valencia - Last Filed: 03/03/17 18:25> General Exam <Jonathon East - Last Filed: 03/03/17 18:06> Limitations: no limitations <Nitin Valencia - Last Filed: 03/03/17 18:25> - General Exam Comments Initial Comments: General: The patient is awake and alert, in no distress, and does not appear acutely ill. Eye: Pupils are equal, round and reactive to light, extra-ocular movements are intact. No nystagmus. There is normal conjunctiva bilaterally. No signs of icterus. Ears, nose, mouth and throat: There are moist mucous membranes and no oral lesions. Neck: The neck is supple, there is no tenderness or JVD. Cardiovascular: There is a regular rate and rhythm. No murmur, rub or gallop is appreciated. Respiratory: Lungs are clear to auscultation, respirations are non-labored, breath sounds are equal. No wheezes, stridor, rales, or rhonchi. Gastrointestinal: Soft, non-distended, non-tender abdomen without masses or organomegaly noted. There is no rebound or guarding present. No CVA tenderness. Bowel sounds are unremarkable. Musculoskeletal: Normal ROM, no tenderness. Strength 5/5. Sensation intact. Pulses equal bilaterally 2+. Neurological: A&O x 3. CN II-XII intact, There are no obvious motor or sensory deficits. Coordination appears grossly intact. Speech is normal. Skin: She does have a bump located top of her head. It is Palpation. Psychiatric: Cooperative, appropriate mood & affect, normal judgment. (Nitin Valencia) Medical Decision Making - Lab Data Result diagrams: 03/03/17 17:12 03/03/17 17:12 <Jonathon aEst - Last Filed: 03/03/17 18:06> - Lab Data Result diagrams: 03/03/17 17:12 03/03/17 17:12 <Nitin Valencia - Last Filed: 03/03/17 18:25> - Lab Data Lab Results 03/03/17 03/03/17 03/03/17 Range/Units 17:12 17:12 17:12 WBC 3.7 L (3.8-10.6) k/uL RBC 4.32 (3.80-5.40) m/uL Hgb 11.8 (11.4-16.0) gm/dL Hct 35.2 (34.0-46.0) % MCV 81.4 (80.0-100.0) fL MCH 27.2 (25.0-35.0) pg MCHC 33.4 (31.0-37.0) g/dL RDW 14.2 (11.5-15.5) % Plt Count 264 (150-450) k/uL Neutrophils % 60 % Lymphocytes % 30 % Monocytes % 5 % Eosinophils % 0 % Basophils % 1 % Neutrophils # 2.3 (1.3-7.7) k/uL Lymphocytes # 1.1 (1.0-4.8) k/uL Monocytes # 0.2 (0-1.0) k/uL Eosinophils # 0.0 (0-0.7) k/uL Basophils # 0.0 (0-0.2) k/uL Sodium (137-145) mmol/L Potassium (3.5-5.1) mmol/L Chloride (98-107) mmol/L Carbon Dioxide (22-30) mmol/L Anion Gap mmol/L BUN (7-17) mg/dL Creatinine (0.52-1.04) mg/dL Est GFR (MDRD) Af Amer (>60 ml/min/1.73 sqM) Est GFR (MDRD) Non-Af (>60 ml/min/1.73 sqM) Glucose (74-99) mg/dL Plasma Lactic Acid Michael (0.7-2.0) mmol/L Calcium (8.4-10.2) mg/dL Total Bilirubin (0.2-1.3) mg/dL AST (14-36) U/L ALT (9-52) U/L Alkaline Phosphatase (38-126) U/L Total Protein (6.3-8.2) g/dL Albumin (3.5-5.0) g/dL Amylase <30 L (30-110) U/L Lipase 20 L (23-300) U/L Urine Color Urine Appearance (Clear) Urine pH (5.0-8.0) Ur Specific [place] (1.001-1.035) Urine Protein (Negative) Urine Glucose (UA) (Negative) Urine Ketones (Negative) Urine Blood (Negative) Urine Nitrite (Negative) Urine Bilirubin (Negative) Urine Urobilinogen (<2.0) mg/dL Ur Leukocyte Esterase (Negative) Urine RBC (0-5) /hpf Urine WBC (0-5) /hpf Ur Squamous Epith Cells (0-4) /hpf Hyaline Casts (0-2) /lpf Urine Mucus (None) /hpf Urine HCG, Qual Not Detected (Not Detectd) Acetone, Qual (Negative) Influenza Type A RNA (Not Detectd) Influenza Type B (PCR) (Not Detectd) 03/03/17 03/03/17 03/03/17 Range/Units 17:12 17:12 17:12 WBC (3.8-10.6) k/uL RBC (3.80-5.40) m/uL Hgb (11.4-16.0) gm/dL Hct (34.0-46.0) % MCV (80.0-100.0) fL MCH (25.0-35.0) pg MCHC (31.0-37.0) g/dL RDW (11.5-15.5) % Plt Count (150-450) k/uL Neutrophils % % Lymphocytes % % Monocytes % % Eosinophils % % Basophils % % Neutrophils # (1.3-7.7) k/uL Lymphocytes # (1.0-4.8) k/uL Monocytes # (0-1.0) k/uL Eosinophils # (0-0.7) k/uL Basophils # (0-0.2) k/uL Sodium 136 L (137-145) mmol/L Potassium 3.5 (3.5-5.1) mmol/L Chloride 96 L (98-107) mmol/L Carbon Dioxide 25 (22-30) mmol/L Anion Gap 15 mmol/L BUN 4 L (7-17) mg/dL Creatinine 0.50 L (0.52-1.04) mg/dL Est GFR (MDRD) Af Amer >60 (>60 ml/min/1.73 sqM) Est GFR (MDRD) Non-Af >60 (>60 ml/min/1.73 sqM) Glucose 292 H (74-99) mg/dL Plasma Lactic Acid Michael 1.5 (0.7-2.0) mmol/L Calcium 9.2 (8.4-10.2) mg/dL Total Bilirubin 0.4 (0.2-1.3) mg/dL AST 48 H (14-36) U/L ALT 47 (9-52) U/L Alkaline Phosphatase 111 (38-126) U/L Total Protein 7.3 (6.3-8.2) g/dL Albumin 3.7 (3.5-5.0) g/dL Amylase (30-110) U/L Lipase (23-300) U/L Urine Color Yellow Urine Appearance Cloudy H (Clear) Urine pH 5.5 (5.0-8.0) Ur Specific [place] 1.017 (1.001-1.035) Urine Protein Trace H (Negative) Urine Glucose (UA) 4+ H (Negative) Urine Ketones Negative (Negative) Urine Blood Trace H (Negative) Urine Nitrite Negative (Negative) Urine Bilirubin Negative (Negative) Urine Urobilinogen <2.0 (<2.0) mg/dL Ur Leukocyte Esterase Small H (Negative) Urine RBC 5 (0-5) /hpf Urine WBC 13 H (0-5) /hpf Ur Squamous Epith Cells 5 H (0-4) /hpf Hyaline Casts 3 H (0-2) /lpf Urine Mucus Rare H (None) /hpf Urine HCG, Qual (Not Detectd) Acetone, Qual (Negative) Influenza Type A RNA (Not Detectd) Influenza Type B (PCR) (Not Detectd) 03/03/17 03/03/17 Range/Units 17:12 17:54 WBC (3.8-10.6) k/uL RBC (3.80-5.40) m/uL Hgb (11.4-16.0) gm/dL Hct (34.0-46.0) % MCV (80.0-100.0) fL MCH (25.0-35.0) pg MCHC (31.0-37.0) g/dL RDW (11.5-15.5) % Plt Count (150-450) k/uL Neutrophils % % Lymphocytes % % Monocytes % % Eosinophils % % Basophils % % Neutrophils # (1.3-7.7) k/uL Lymphocytes # (1.0-4.8) k/uL Monocytes # (0-1.0) k/uL Eosinophils # (0-0.7) k/uL Basophils # (0-0.2) k/uL Sodium (137-145) mmol/L Potassium (3.5-5.1) mmol/L Chloride (98-107) mmol/L Carbon Dioxide (22-30) mmol/L Anion Gap mmol/L BUN (7-17) mg/dL Creatinine (0.52-1.04) mg/dL Est GFR (MDRD) Af Amer (>60 ml/min/1.73 sqM) Est GFR (MDRD) Non-Af (>60 ml/min/1.73 sqM) Glucose (74-99) mg/dL Plasma Lactic Acid Michael (0.7-2.0) mmol/L Calcium (8.4-10.2) mg/dL Total Bilirubin (0.2-1.3) mg/dL AST (14-36) U/L ALT (9-52) U/L Alkaline Phosphatase (38-126) U/L Total Protein (6.3-8.2) g/dL Albumin (3.5-5.0) g/dL Amylase (30-110) U/L Lipase (23-300) U/L Urine Color Urine Appearance (Clear) Urine pH (5.0-8.0) Ur Specific [place] (1.001-1.035) Urine Protein (Negative) Urine Glucose (UA) (Negative) Urine Ketones (Negative) Urine Blood (Negative) Urine Nitrite (Negative) Urine Bilirubin (Negative) Urine Urobilinogen (<2.0) mg/dL Ur Leukocyte Esterase (Negative) Urine RBC (0-5) /hpf Urine WBC (0-5) /hpf Ur Squamous Epith Cells (0-4) /hpf Hyaline Casts (0-2) /lpf Urine Mucus (None) /hpf Urine HCG, Qual (Not Detectd) Acetone, Qual Negative (Negative) Influenza Type A RNA Not Detected (Not Detectd) Influenza Type B (PCR) Not Detected (Not Detectd) Disposition <Jonathon East - Last Filed: 03/03/17 18:06> Time of Disposition: 18:24 <Nitin Valencia - Last Filed: 03/03/17 18:25> Clinical Impression: UTI (urinary tract infection) Disposition: ADMITTED IP TO THIS HOSP Condition: Stable Referrals: Rober Cantu MD [Primary Care Provider] - 1-2 days
[2017-03-03 17:26] LABS: Basophils % (A) 1 %; CH 27.9; CHCM 34.4; Eosinophils % (A) 0 %; HCT 35.2 % (34.0-46.0); HDW 2.75; HGB 11.8 gm/dL (11.4-16.0); Luc # (Auto) 0.16; Luc % (Auto) 4; Lymphocytes # (A) 1.1 k/uL (1.0-4.8); Lymphocytes % (A) 30 %; MCH 27.2 pg (25.0-35.0); MCHC 33.4 g/dL (31.0-37.0); MCV 81.4 fL (80.0-100.0); Mean Platelet Volume 8.1; Monocytes # (A) 0.2 k/uL (0-1.0); Monocytes % (A) 5 %; Neutrophils # (A) 2.3 k/uL (1.3-7.7); Neutrophils % (A) 60 %; RBC 4.32 m/uL (3.80-5.40); RDW 14.2 % (11.5-15.5); WBC 3.7 k/uL (3.8-10.6); WBC (Perox) 4.38
[2017-03-03 17:30] LABS: Appearance,Urine Cloudy (Clear); Bilirubin,Urine Negative (Negative); Glucose,Urine (UA) 4+ (Negative); Ketones,Urine Negative (Negative); Leukocyte Esterase,Urine Small (Negative); Mucus,Urine Rare /hpf; Nitrite,Urine Negative (Negative); PH, Urine 5.5 (5.0-8.0); Particle Count 5339; Protein,Urine Trace (Negative); RBC,Urine 5 /hpf (0-5); Specific Gravity,Urine 1.017 (1.001-1.035); Squamous Epithelial Cell,Urine 5 /hpf (0-4); UA Billing (MACRO vs. MICRO) MICRO; Urobilinogen,Urine <2.0 mg/dL (<2.0); WBC,Urine 13 /hpf (0-5)
[2017-03-03 17:41] LABS: Amylase <30 U/L (30-110)
[2017-03-03 17:43] LABS: ALT 47 U/L (9-52); AST 48 U/L (14-36); Alkaline Phosphatase 111 U/L (38-126); Anion Gap 15 mmol/L; Blood Urea Nitrogen 4 mg/dL (7-17); Calcium 9.2 mg/dL (8.4-10.2); Carbon Dioxide 25 mmol/L (22-30); Chloride 96 mmol/L (98-107); Glucose 292 mg/dL (74-99); Non-African American GFR(MDRD) >60 (>60 ml/min/1.73 sqM); Potassium 3.5 mmol/L (3.5-5.1); Sodium 136 mmol/L (137-145); Total Bilirubin 0.4 mg/dL (0.2-1.3); Total Protein 7.3 g/dL (6.3-8.2)
[2017-03-03] MEDS ORDERED: RX INFO: IV CONTRAST WAS GIVEN 1 EACH MISC MISCELLANE PRN (17:55)
[2017-03-03] MEDS ORDERED: cefTRIAXone 2,000 MG in SODIUM CHLORIDE 0.9% 100 ML IVPB STA (18:01)
[2017-03-03] MEDS ORDERED: SODIUM CHLORIDE 0.9% 1,000 ML IV ONE (18:16)
[2017-03-03] MEDS ORDERED: NALOXONE 0.4 MG/ML 1 ML VIAL IV PRN (18:19)
[2017-03-03] MEDS ORDERED: ONDANSETRON 4 MG/2 ML VIAL IVP PRN (18:19)
--- NOTE | 2017-03-03 18:22 | XR ---
EXAMINATION TYPE: XR chest 2V DATE OF EXAM: 03/03/2017 COMPARISON: NONE HISTORY: Fevers and chills for 2 days. TECHNIQUE: Frontal and lateral views of the chest are obtained. FINDINGS: There is no focal air space opacity, pleural effusion, or pneumothorax seen. The cardiac silhouette size is within normal limits. The osseous structures are intact. IMPRESSION: No acute cardiopulmonary process.
[2017-03-03 19:45] LABS: Glucose,Whole Blood 173 mg/dL (75-99)
[2017-03-03] MEDS: IBUPROFEN 600 MG TAB PO PRN (20:46)
[2017-03-03] MEDS: INSULIN GLARGINE 100 UNIT/ML 10 ML VIAL SQ SCH (22:15)
[2017-03-03] MEDS: ACETAMINOPHEN TAB 325 MG TAB PO PRN (22:20)
[2017-03-04] MEDS: ACETAMINOPHEN TAB 325 MG TAB PO PRN ×3 (05:44→21:14)
[2017-03-04 07:33] LABS: Glucose,Whole Blood 156 mg/dL (75-99)
[2017-03-04] MEDS: INSULIN LISPRO (humaLOG) 300 UNIT/3 ML VIAL SQ SCH ×6 (08:00→21:07)
[2017-03-04 08:39] LABS: Basophils % (A) 1 %; CH 27.5; CHCM 33.6; Eosinophils % (A) 1 %; HGB 11.4 gm/dL (11.4-16.0); Luc # (Auto) 0.08; Luc % (Auto) 3; Lymphocytes # (A) 0.9 k/uL (1.0-4.8); Lymphocytes % (A) 27 %; MCH 26.9 pg (25.0-35.0); MCHC 32.7 g/dL (31.0-37.0); MCV 82.3 fL (80.0-100.0); Mean Platelet Volume 7.6; Monocytes # (A) 0.2 k/uL (0-1.0); Monocytes % (A) 5 %; Neutrophils % (A) 64 %; RBC 4.25 m/uL (3.80-5.40); RDW 14.1 % (11.5-15.5); WBC 3.1 k/uL (3.8-10.6); WBC (Perox) 3.13
[2017-03-04] MEDS: IBUPROFEN 600 MG TAB PO PRN ×2 (08:43→23:53)
[2017-03-04] MEDS: SODIUM CHLORIDE 0.9% 1,000 ML IV SCH ×2 (08:49→20:43)
[2017-03-04 08:53] LABS: ALT 68 U/L (9-52); AST 81 U/L (14-36); Alkaline Phosphatase 115 U/L (38-126); Anion Gap 9 mmol/L; Blood Urea Nitrogen 5 mg/dL (7-17); Calcium 8.4 mg/dL (8.4-10.2); Carbon Dioxide 24 mmol/L (22-30); Chloride 107 mmol/L (98-107); Glucose 156 mg/dL (74-99); Non-African American GFR(MDRD) >60 (>60 ml/min/1.73 sqM); Potassium 3.4 mmol/L (3.5-5.1); Sodium 140 mmol/L (137-145); Total Bilirubin 0.3 mg/dL (0.2-1.3); Total Protein 6.8 g/dL (6.3-8.2)
[2017-03-04 12:14] LABS: Glucose,Whole Blood 183 mg/dL (75-99)
[2017-03-04 12:17] LABS: Hemoglobin A1C 12.9 % (4.2-6.1)
--- NOTE | 2017-03-04 12:41 | P.HPIM ---
History of Present Illness H&P Date: 03/04/17 Chief Complaint: Fevers and chills This is a 31-year-old female with past medical history significant for type 2 diabetes mellitus who presented to the hospital with fever and chills. Patient said that for the past few days she has been feeling progressively weak. Yesterday she started having fevers and chills and was having a lot of nausea but no vomiting. She denies abdominal pain. No diarrhea. No blood in her stool. Patient presented to the emergency room was found to have a high-grade fever of 101.7. Her urinalysis was ultimately positive but patient denies any urinary symptoms. She was started on IV ceftriaxone and was admitted to the hospital for further evaluation. She reports feeling better this morning. No fever documented since admission. Review of Systems Review of system: 14 points review of systems were obtained and were negative except to what were mentioned in the HPI. Past Medical History Past Medical History: Diabetes Mellitus History of Any Multi-Drug Resistant Organisms: None Reported Past Surgical History: Section Additional Past Surgical History / Comment(s): x 2 Past Anesthesia/Blood Transfusion Reactions: No Reported Reaction Past Psychological History: No Psychological Hx Reported Smoking Status: Never smoker Past Alcohol Use History: None Reported Past Drug Use History: None Reported - Past Family History Father Family Medical History: Cancer, Diabetes Mellitus Additional Family Medical History / Comment(s): Diabetes also on mother's side; Heart disease Medications and Allergies Home Medications Medication Instructions Recorded Confirmed Type INSULIN LISPRO (humaLOG) [humaLOG 15 unit SQ AC-TID 10/09/14 03/03/17 History (formulary)] Insulin Glargine [Lantus] 30 unit SQ HS 03/03/17 03/03/17 History Allergies Allergy/AdvReac Type Severity Reaction Status Date / Time shellfish derived Allergy Anaphylaxis Verified 03/03/17 16:41 Physical Exam Vitals: Vital Signs Temp Pulse Pulse Resp BP BP Pulse Ox 03/04/17 10:38 86 03/04/17 07:47 99.0 F 03/04/17 07:45 99 F 86 18 101/50 03/04/17 00:05 98.6 F 03/03/17 23:00 101.7 F H 100 16 98/56 97 03/03/17 20:40 100.5 F H 03/03/17 19:30 98.2 F 84 16 107/64 99 03/03/17 18:50 99.2 F 67 17 96/51 94 L 03/03/17 16:01 102.5 F H 112 H 18 124/79 96 Intake and Output 03/03/17 03/04/17 03/04/17 22:59 06:59 14:59 Intake Total 1000 Balance 1000 Intake: Amount of Fluid Infused ( 1000 ml) Other: Voiding Method Toilet # Voids 1 2 Weight 73.028 kg General: The patient is awake and alert, in no distress Eye: there is normal conjunctiva bilaterally. Neck: The neck is supple, there is no JVD. Cardiovascular: Normal S1-S2, no S3-S4, no murmurs. Respiratory: Lungs clear to auscultation bilaterally Gastrointestinal: Abdomen is soft, nontender Musculoskeletal: There is no pedal edema. Neurological:. Speech is normal. Skin: Skin is warm and dry Results CBC & Chem 7: 03/04/17 07:50 03/04/17 07:50 Labs: Abnormal Lab Results - Last 24 Hours (Table) 03/03/17 03/03/17 03/03/17 Range/Units 17:12 17:12 17:12 WBC 3.7 L (3.8-10.6) k/uL Lymphocytes # (1.0-4.8) k/uL Sodium (137-145) mmol/L Potassium (3.5-5.1) mmol/L Chloride (98-107) mmol/L BUN (7-17) mg/dL Creatinine (0.52-1.04) mg/dL Glucose (74-99) mg/dL POC Glucose (mg/dL) (75-99) mg/dL AST (14-36) U/L ALT (9-52) U/L Albumin (3.5-5.0) g/dL Amylase <30 L (30-110) U/L Lipase 20 L (23-300) U/L Urine Appearance Cloudy H (Clear) Urine Protein Trace H (Negative) Urine Glucose (UA) 4+ H (Negative) Urine Blood Trace H (Negative) Ur Leukocyte Esterase Small H (Negative) Urine WBC 13 H (0-5) /hpf Ur Squamous Epith Cells 5 H (0-4) /hpf Hyaline Casts 3 H (0-2) /lpf Urine Mucus Rare H (None) /hpf 03/03/17 03/03/17 03/04/17 Range/Units 17:12 19:43 07:24 WBC (3.8-10.6) k/uL Lymphocytes # (1.0-4.8) k/uL Sodium 136 L (137-145) mmol/L Potassium (3.5-5.1) mmol/L Chloride 96 L (98-107) mmol/L BUN 4 L (7-17) mg/dL Creatinine 0.50 L (0.52-1.04) mg/dL Glucose 292 H (74-99) mg/dL POC Glucose (mg/dL) 173 H 156 H (75-99) mg/dL AST 48 H (14-36) U/L ALT (9-52) U/L Albumin (3.5-5.0) g/dL Amylase (30-110) U/L Lipase (23-300) U/L Urine Appearance (Clear) Urine Protein (Negative) Urine Glucose (UA) (Negative) Urine Blood (Negative) Ur Leukocyte Esterase (Negative) Urine WBC (0-5) /hpf Ur Squamous Epith Cells (0-4) /hpf Hyaline Casts (0-2) /lpf Urine Mucus (None) /hpf 03/04/17 03/04/17 03/04/17 Range/Units 07:50 07:50 12:01 WBC 3.1 L (3.8-10.6) k/uL Lymphocytes # 0.9 L (1.0-4.8) k/uL Sodium (137-145) mmol/L Potassium 3.4 L (3.5-5.1) mmol/L Chloride (98-107) mmol/L BUN 5 L (7-17) mg/dL Creatinine 0.49 L (0.52-1.04) mg/dL Glucose 156 H (74-99) mg/dL POC Glucose (mg/dL) 183 H (75-99) mg/dL AST 81 H (14-36) U/L ALT 68 H (9-52) U/L Albumin 3.1 L (3.5-5.0) g/dL Amylase (30-110) U/L Lipase (23-300) U/L Urine Appearance (Clear) Urine Protein (Negative) Urine Glucose (UA) (Negative) Urine Blood (Negative) Ur Leukocyte Esterase (Negative) Urine WBC (0-5) /hpf Ur Squamous Epith Cells (0-4) /hpf Hyaline Casts (0-2) /lpf Urine Mucus (None) /hpf Microbiology - Last 24 Hours (Table) 03/03/17 17:12 Urine Culture - Preliminary Urine,Clean Catch Thrombosis Risk Factor Assmnt - Choose All That Apply Any of the Below Risk Factors Present?: Yes Each Factor Represents 1 point: Obesity (BMI >25) Thrombosis Risk Factor Assessment Total Risk Factor Score: 1 Thrombosis Risk Factor Assessment Level: Low Risk Assessment and Plan Plan: 1. Urinary tract infection 2. Suspected viral gastritis 3. High-grade fever on presentation 4. Type 2 diabetes mellitus Today, I reviewed her medication list and lab work results. Continue IV antibiotic with ceftriaxone. Consult infectious disease for further evaluation. Flu test was negative. Continue IV fluid hydration. IV Protonix 40 mg once daily. Encouraged oral hydration. Encouraged ambulation. Repeat lab work in the morning. Awaiting urine and blood culture.
[2017-03-04] MEDS: PANTOPRAZOLE 40 MG/10 ML VIAL IVP SCH (13:03)
[2017-03-04] MEDS ORDERED: Potassium Replacement Protocol 1 EACH MISC MISCELLANE PRN (14:45)
[2017-03-04 14:57] VITALS: BMI 30.4
[2017-03-04] MEDS: POTASSIUM CHLORIDE ER 20 MEQ TAB.ER PO SCH ×2 (15:25→16:09)
[2017-03-04] MEDS ORDERED: HYDROmorphone 1 MG/ML 1 ML SYRINGE IVP STA (15:56)
[2017-03-04 17:21] LABS: Glucose,Whole Blood 187 mg/dL (75-99)
[2017-03-04] MEDS: ONDANSETRON 4 MG/2 ML VIAL IVP PRN (18:22)
[2017-03-04] MEDS ORDERED: IV VANCOMYCIN PER PHARMACY 1 EACH MISC MISCELLANE PRN (18:44)
[2017-03-04] MEDS ORDERED: VANCOMYCIN 1,500 MG in SODIUM CHLORIDE 0.9% 250 ML IVPB ONE (19:30)
[2017-03-04 20:39] LABS: Glucose,Whole Blood 173 mg/dL (75-99)
[2017-03-04] MEDS: HEPARIN SODIUM,PORCINE 5,000 UNIT/ML 1 ML VIAL SQ SCH (21:16)
[2017-03-04] MEDS: INSULIN GLARGINE 100 UNIT/ML 10 ML VIAL SQ SCH (21:20)
[2017-03-04] MEDS: ceFAZolin 2 GM in SODIUM CHLORIDE 0.9% 100 ML IVPB SCH (23:53)
[2017-03-05] MEDS: VANCOMYCIN 1,250 MG in SODIUM CHLORIDE 0.9% 250 ML IVPB SCH ×3 (01:47→17:10)
[2017-03-05] MEDS: SODIUM CHLORIDE 0.9% 1,000 ML IV SCH ×2 (04:56→06:16)
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
[2017-03-05 07:26] LABS: Glucose,Whole Blood 84 mg/dL (75-99)
[2017-03-05] MEDS: INSULIN LISPRO (humaLOG) 300 UNIT/3 ML VIAL SQ SCH ×7 (07:44→21:14)
[2017-03-05] MEDS: ceFAZolin 2 GM in SODIUM CHLORIDE 0.9% 100 ML IVPB SCH ×2 (08:03→15:40)
[2017-03-05] MEDS: PANTOPRAZOLE 40 MG/10 ML VIAL IVP SCH (08:19)
[2017-03-05] MEDS: ONDANSETRON 4 MG/2 ML VIAL IVP PRN (08:20)
[2017-03-05] MEDS: HEPARIN SODIUM,PORCINE 5,000 UNIT/ML 1 ML VIAL SQ SCH ×3 (08:20→20:12)
[2017-03-05] MEDS: ACETAMINOPHEN TAB 325 MG TAB PO PRN ×2 (08:20→13:36)
[2017-03-05 09:18] LABS: Anion Gap 8 mmol/L; Blood Urea Nitrogen 3 mg/dL (7-17); Carbon Dioxide 23 mmol/L (22-30); Chloride 110 mmol/L (98-107); Glucose 105 mg/dL (74-99); Non-African American GFR(MDRD) >60 (>60 ml/min/1.73 sqM); Potassium 3.6 mmol/L (3.5-5.1); Sodium 141 mmol/L (137-145)
[2017-03-05 09:48] LABS: Hepatitis B Surface Ag Index 0.08
[2017-03-05 10:05] LABS: Hepatitis C Virus IgG Ab Negative (Negative); Hepatitis C Virus IgG Index 0.19
[2017-03-05 10:22] LABS: Aty Lym Flag Slight; CH 27.5; HDW 2.85; HGB 10.9 gm/dL (11.4-16.0); MCH 26.8 pg (25.0-35.0); MCV 83.7 fL (80.0-100.0); Mean Platelet Volume 7.7; RBC 4.06 m/uL (3.80-5.40); RDW 14.3 % (11.5-15.5); WBC 3.2 k/uL (3.8-10.6); WBC (Perox) 3.27
--- NOTE | 2017-03-05 10:51 | P.PN ---
Subjective Patient had another high-grade fever last night. She was found to have a scalp abscess that was drained Objective - Vital Signs Vital signs: Vital Signs Temp 98.0 F 03/05/17 07:00 Pulse 72 03/05/17 07:00 Resp 17 03/05/17 07:00 BP 100/54 03/05/17 07:00 Pulse Ox 99 03/05/17 07:00 Intake & Output 03/04/17 03/05/17 03/05/17 18:59 06:59 18:59 Intake Total 480 1250 590 Balance 480 1250 590 Weight 73.028 kg Intake: Intake, IV Titration 1250 350 Amount Sodium Chloride 0.9% 1, 900 000 ml @ 100 mls/hr IV . Q10H MIKO Rx#:[id number] Vancomycin 1,250 mg In 250 250 Sodium Chloride 0.9% 250 ml @ 125 mls/hr IVPB Q8H MIKO Rx#:[id number] ceFAZolin 2 gm In Sodium 100 100 Chloride 0.9% 100 ml @ 100 mls/hr IVPB Q8HR MIKO Rx#:[id number] Oral 480 240 Other: Voiding Method Toilet # Voids 2 2 # Bowel Movements 0 - Exam General: The patient is awake and alert, in no distress Eye: there is normal conjunctiva bilaterally. Neck: The neck is supple, there is no JVD. Cardiovascular: Normal S1-S2, no S3-S4, no murmurs. Respiratory: Lungs clear to auscultation bilaterally Gastrointestinal: Abdomen is soft, nontender Musculoskeletal: There is no pedal edema. Neurological:. Speech is normal. Skin: Skin is warm and dry - Labs CBC & Chem 7: 03/05/17 08:16 03/05/17 08:16 Labs: Abnormal Lab Results - Last 24 Hours (Table) 03/04/17 03/04/17 03/04/17 Range/Units 07:50 12:01 17:19 WBC (3.8-10.6) k/uL Hgb (11.4-16.0) gm/dL Chloride (98-107) mmol/L BUN (7-17) mg/dL Creatinine (0.52-1.04) mg/dL Glucose (74-99) mg/dL POC Glucose (mg/dL) 183 H 187 H (75-99) mg/dL Hemoglobin A1c 12.9 H (4.2-6.1) % Calcium (8.4-10.2) mg/dL 03/04/17 03/05/17 03/05/17 Range/Units 20:33 08:16 08:16 WBC 3.2 L (3.8-10.6) k/uL Hgb 10.9 L (11.4-16.0) gm/dL Chloride 110 H (98-107) mmol/L BUN 3 L (7-17) mg/dL Creatinine 0.48 L (0.52-1.04) mg/dL Glucose 105 H (74-99) mg/dL POC Glucose (mg/dL) 173 H (75-99) mg/dL Hemoglobin A1c (4.2-6.1) % Calcium 8.0 L (8.4-10.2) mg/dL Microbiology - Last 24 Hours (Table) 03/04/17 16:00 Wound Culture - Preliminary Head 03/03/17 17:12 Blood Culture - Preliminary Blood No Growth after 24 hours 03/03/17 17:12 Urine Culture - Final Urine,Clean Catch Strep agalactiae - (group b) Assessment and Plan Plan: 1. Urinary tract infection 2. Scalp abscess status post drainage by infectious disease awaiting culture 3. High-grade fever on presentation 4. Type 2 diabetes mellitus Today, I reviewed her medication list and lab work results. Continue IV antibiotic. Infectious disease following, appreciate recommendations. Flu test was negative. Continue IV fluid hydration. IV Protonix 40 mg once daily. Encouraged oral hydration. Encouraged ambulation. Repeat lab work in the morning. Blood culture negative to date
[2017-03-05 11:44] LABS: Add Differential Manual Differential
[2017-03-05 11:47] LABS: Band Neutrophils % 1 %; Manual Review Performed; Nucleated Red Blood Cells 0 /100 WBC (0-0); Total Cells Counted 100
[2017-03-05 12:23] LABS: Glucose,Whole Blood 136 mg/dL (75-99)
--- NOTE | 2017-03-05 12:43 | CDI ---
In responding to this query, please exercise your independent professional judgment. The [facility] Coding Staff and Clinical Documentation Specialists appreciate your assistance in clarifying documentation, maintaining compliance with coding guidelines, accurately documenting patients condition and capturing severity of illness. The fact that a question is asked does not imply that any particular answer is desired or expected. Communication forms are a method of clarifying documentation and are not made part of the Legal Health Record. Thank you in advance for your clarification. Last Revision, September 2016 Yaquelin Willis [address] [facility] [place] [address] Documentation Clarification Form Date: 03/05/2017 12:15:00 PM From: Sena Trejo RN, CDS Admit Date: 03/05/2017 8:31:00 AM Patient Name: Krysten Chu Visit Number: [id number] Dr. Mitzy Navarrete, 31 year old patient admitted for Urinary Tract Infection, suspected Viral Gastritis and high grade fever on presentation. "Sepsis, source likely scalp abscess likely from gram positive skin maria t" per ID consultation note History/Risk Factors: DM2, found to have scalp abscess, Clinical Indicators: 3/4 SIRS Criteria: Temp: 100.5 and 101.7 on admission, 101.5 and 102.5 on 03/05 with HR 100 and 101 at times of temperature spike. WBC 3.7, UA Culture: + Streptococcus agalactiae, Wound culture pending Vitals signs on admission: 102.5 112 18 124/79 96 Treatment: ID consult, IV Cefazolin, IV Vanco, wound culture, In your professional opinion, please clarify if these findings signify one of the following conditions, whether the condition is POA, and cause, if known: Sepsis, present on admission Sepsis, ruled out Severe Sepsis Unable to determine Other, please specify * Identify the (suspected) organism SIRS Criteria: 2 or more of the following may indicate SIRS Temperature < 96.8F(36C) or > 101.0F (38C) Heart Rate > 90 bpm Respiratory Rate > 20 breaths/min or PaCO2 < 32 mmHg White Blood Cell Count > 12,000 or < 4,000 cells/mm3 or > 10% bands Lactate >2.0 mmol/L (>4.0 is equivalent to septic shock) Please document in your progress notes and discharge summary in order to capture severity of illness and risk of mortality. Include clinical findings that support your diagnosis. FYI: Press F11 to launch patient chart. Thank you. SEJAL
[2017-03-05] MEDS: HYDROcodone/APAP 5-325MG 1 EACH TAB PO PRN ×2 (16:49→22:53)
[2017-03-05 17:12] LABS: Glucose,Whole Blood 139 mg/dL (75-99)
[2017-03-05] MEDS: INSULIN GLARGINE 100 UNIT/ML 10 ML VIAL SQ SCH (20:26)
[2017-03-05 20:27] LABS: Glucose,Whole Blood 159 mg/dL (75-99)
[2017-03-05] MEDS: IBUPROFEN 600 MG TAB PO PRN (22:53)
[2017-03-06] MEDS ORDERED: VANCOMYCIN TROUGH DUE 1 EACH MISC MISCELLANE ONE
[2017-03-06] MEDS: ceFAZolin 2 GM in SODIUM CHLORIDE 0.9% 100 ML IVPB SCH ×3 (00:35→15:11)
[2017-03-06] MEDS: SODIUM CHLORIDE 0.9% 1,000 ML IV SCH ×3 (00:36→22:57)
[2017-03-06] MEDS: VANCOMYCIN 1,250 MG in SODIUM CHLORIDE 0.9% 250 ML IVPB SCH ×3 (02:05→17:27)
[2017-03-06 06:59] LABS: Glucose,Whole Blood 72 mg/dL (75-99)
[2017-03-06] MEDS: INSULIN LISPRO (humaLOG) 300 UNIT/3 ML VIAL SQ SCH ×7 (07:07→22:57)
[2017-03-06] MEDS: PANTOPRAZOLE 40 MG TABLET PO SCH (08:04)
[2017-03-06] MEDS: HEPARIN SODIUM,PORCINE 5,000 UNIT/ML 1 ML VIAL SQ SCH ×2 (08:04→22:28)
[2017-03-06] MEDS: HYDROcodone/APAP 5-325MG 1 EACH TAB PO PRN ×3 (08:05→21:07)
[2017-03-06 08:24] LABS: Basophils % (A) 1 %; CH 27.3; CHCM 32.7; Eosinophils % (A) 1 %; HCT 33.2 % (34.0-46.0); HDW 2.99; HGB 10.5 gm/dL (11.4-16.0); Luc # (Auto) 0.13; Luc % (Auto) 4; Lymphocytes # (A) 1.5 k/uL (1.0-4.8); Lymphocytes % (A) 47 %; MCH 26.5 pg (25.0-35.0); MCHC 31.5 g/dL (31.0-37.0); MCV 84.2 fL (80.0-100.0); Mean Platelet Volume 7.4; Monocytes # (A) 0.2 k/uL (0-1.0); Monocytes % (A) 7 %; Neutrophils # (A) 1.3 k/uL (1.3-7.7); Neutrophils % (A) 41 %; RBC 3.95 m/uL (3.80-5.40); RDW 14.3 % (11.5-15.5); WBC 3.2 k/uL (3.8-10.6); WBC (Perox) 3.12
[2017-03-06 08:41] LABS: Anion Gap 7 mmol/L; Blood Urea Nitrogen 3 mg/dL (7-17); Calcium 8.1 mg/dL (8.4-10.2); Carbon Dioxide 25 mmol/L (22-30); Chloride 110 mmol/L (98-107); Glucose 83 mg/dL (74-99); Non-African American GFR(MDRD) >60 (>60 ml/min/1.73 sqM); Potassium 3.3 mmol/L (3.5-5.1); Sodium 142 mmol/L (137-145)
[2017-03-06] MEDS ORDERED: Potassium Replacement Protocol 1 EACH MISC MISCELLANE PRN ×2 (09:24→18:27)
--- NOTE | 2017-03-06 09:47 | P.PN ---
Subjective Patient admitted with a scalp abscess. Wound culture growing presumptive staph aureus. Currently on vancomycin and consult. Patient still having fevers. She had a temporal 101.5 yesterday. Pain is controlled. Infectious disease following. Denies any chest pain or shortness of breath. Doesn't to some nausea. And decrease in appetite. Denies any bowel movement changes or urinary symptoms. Did have a blood sugar of 72 Lantus adjusted. Objective - Vital Signs Vital signs: Vital Signs Temp 98.0 F 03/06/17 07:00 Pulse 80 03/06/17 07:00 Resp 16 03/06/17 07:00 BP 105/59 03/06/17 07:00 Pulse Ox 96 03/06/17 07:00 Intake & Output 03/05/17 03/06/17 03/06/17 18:59 06:59 18:59 Intake Total 790 Balance 790 Intake: Intake, IV Titration 350 Amount Vancomycin 1,250 mg In 250 Sodium Chloride 0.9% 250 ml @ 125 mls/hr IVPB Q8H MIKO Rx#:[id number] ceFAZolin 2 gm In Sodium 100 Chloride 0.9% 100 ml @ 100 mls/hr IVPB Q8HR MIKO Rx#:[id number] Oral 440 Other: Voiding Method Toilet Toilet # Voids 3 2 # Bowel Movements 0 - Exam Head normocephalic. Top of the head there is an abscess that is fluctuant in the size of a quarter Neck supple Lungs clear to auscultation bilaterally no wheezing or crackles Heart regular rate and rhythm S1-S2, no rub or gallop Abdomen is soft nontender nondistended positive bowel sounds no hepatosplenomegaly Extremities no edema Neuro alert and orientated to 3 - Labs CBC & Chem 7: 03/06/17 07:25 03/06/17 07:25 Labs: Abnormal Lab Results - Last 24 Hours (Table) 03/05/17 03/05/17 03/05/17 Range/Units 08:16 08:16 12:20 WBC 3.2 L (3.8-10.6) k/uL Hgb 10.9 L (11.4-16.0) gm/dL Hct (34.0-46.0) % Neutrophils # (Manual) 1.10 L (1.3-7.7) k/uL Potassium (3.5-5.1) mmol/L Chloride 110 H (98-107) mmol/L BUN 3 L (7-17) mg/dL Creatinine 0.48 L (0.52-1.04) mg/dL Glucose 105 H (74-99) mg/dL POC Glucose (mg/dL) 136 H (75-99) mg/dL Calcium 8.0 L (8.4-10.2) mg/dL 03/05/17 03/05/17 03/06/17 Range/Units 16:59 20:22 06:57 WBC (3.8-10.6) k/uL Hgb (11.4-16.0) gm/dL Hct (34.0-46.0) % Neutrophils # (Manual) (1.3-7.7) k/uL Potassium (3.5-5.1) mmol/L Chloride (98-107) mmol/L BUN (7-17) mg/dL Creatinine (0.52-1.04) mg/dL Glucose (74-99) mg/dL POC Glucose (mg/dL) 139 H 159 H 72 L (75-99) mg/dL Calcium (8.4-10.2) mg/dL 03/06/17 03/06/17 Range/Units 07:25 07:25 WBC 3.2 L (3.8-10.6) k/uL Hgb 10.5 L (11.4-16.0) gm/dL Hct 33.2 L (34.0-46.0) % Neutrophils # (Manual) (1.3-7.7) k/uL Potassium 3.3 L (3.5-5.1) mmol/L Chloride 110 H (98-107) mmol/L BUN 3 L (7-17) mg/dL Creatinine 0.47 L (0.52-1.04) mg/dL Glucose (74-99) mg/dL POC Glucose (mg/dL) (75-99) mg/dL Calcium 8.1 L (8.4-10.2) mg/dL Microbiology - Last 24 Hours (Table) 03/04/17 16:00 Gram Stain - Preliminary Head Wound Culture - Preliminary Presumptive Staph aureus 03/03/17 17:12 Blood Culture - Preliminary Blood No Growth after 48 hours Assessment and Plan Plan: 1. Scalp abscess status post drainage by infectious disease. Wound culture growing presumptive staph aureus. Patient currently on vancomycin and Kefzol. Was still having fevers as of yesterday 2. UTI with urine culture growing strep achalasia. Continue antibiotics 3. Diabetes mellitus type 2: Episode of hypoglycemia this morning. Patient has had decrease in appetite. Decrease Lantus to 27 units at bedtime. Continue to monitor. Hemoglobin A1c 12.9 4. Elevated LFTs: Continue to monitor repeat labs 5. Hypokalemia: Patient received potassium supplement. Repeat labs in a.m. GI prophylaxis Protonix and DVT prophylaxis subcu heparin I performed an examination of the patient and discussed their management with the physician Picker Machine Operator. I have reviewed the Physician Picker Machine Operator's notes and agree with the documented findings and plan of care
[2017-03-06] MEDS: POTASSIUM CHLORIDE ER 20 MEQ TAB.ER PO SCH ×4 (11:02→22:57)
[2017-03-06] MEDS: ONDANSETRON 4 MG/2 ML VIAL IVP PRN (11:10)
[2017-03-06 12:05] LABS: Glucose,Whole Blood 140 mg/dL (75-99)
--- NOTE | 2017-03-06 12:23 | PN ---
PROGRESS NOTE DATE OF SERVICE: 03/05/2017. REASON FOR FOLLOWUP: Scalp abscess. INTERVAL HISTORY: The patient did have a fever last night of 102. The patient is afebrile since then. Patient's pain is to the forehead, the scalp pain has improved. Patient denies chest pain, shortness of breath. No cough. No abdominal pain or any diarrhea. PHYSICAL EXAMINATION: Blood pressure 130/82 with a pulse of 83, temperature 98.8, T-MAX is 102, she is 98% on room air. General description is a middle-aged female lying in bed, in no distress. HEENT examination of the scalp area with very minimal fluctuation but no drainage was noted. LUNGS: Unlabored breathing. Clear to auscultation. HEART: S1, S2 regular rate and rhythm. ABDOMEN: Soft, no tenderness. LABS: Hemoglobin is 10.9, white count of 3.2, BUN of 3, creatinine 0.48. DIAGNOSTIC IMPRESSION AND PLAN: Patient admitted to the hospital with a fever, source likely is scalp abscess. Did have a drainage yesterday. Culture has been obtained. Will keep the patient on vanco and cephazolin while waiting for the culture to finalize. Continue supportive care. MMODL / IJN: [id number] /
[2017-03-06 15:46] LABS: Anion Gap 9 mmol/L; Blood Urea Nitrogen <2 mg/dL (7-17); Calcium 8.1 mg/dL (8.4-10.2); Carbon Dioxide 25 mmol/L (22-30); Chloride 105 mmol/L (98-107); Glucose 172 mg/dL (74-99); Non-African American GFR(MDRD) >60 (>60 ml/min/1.73 sqM); Potassium 3.4 mmol/L (3.5-5.1); Sodium 139 mmol/L (137-145)
[2017-03-06 17:05] LABS: Glucose,Whole Blood 119 mg/dL (75-99)
[2017-03-06] MEDS: IBUPROFEN 600 MG TAB PO PRN (19:41)
[2017-03-06 20:39] LABS: Glucose,Whole Blood 119 mg/dL (75-99)
[2017-03-06] MEDS: INSULIN GLARGINE 100 UNIT/ML 10 ML VIAL SQ SCH (23:00)
[2017-03-06 23:03] LABS: Appearance,Urine Cloudy (Clear); Bacteria,Urine Occasional /hpf; Bilirubin,Urine Negative (Negative); Glucose,Urine (UA) Negative (Negative); Ketones,Urine Negative (Negative); Leukocyte Esterase,Urine Negative (Negative); Mucus,Urine Rare /hpf; Nitrite,Urine Negative (Negative); PH, Urine 5.5 (5.0-8.0); Particle Count 3015; Protein,Urine Negative (Negative); RBC,Urine 1 /hpf (0-5); Specific Gravity,Urine 1.006 (1.001-1.035); Squamous Epithelial Cell,Urine 4 /hpf (0-4); UA Billing (MACRO vs. MICRO) MICRO; Urobilinogen,Urine <2.0 mg/dL (<2.0); WBC,Urine 4 /hpf (0-5)
[2017-03-07] MEDS: ceFAZolin 2 GM in SODIUM CHLORIDE 0.9% 100 ML IVPB SCH ×3 (00:40→16:22)
[2017-03-07] MEDS: SODIUM CHLORIDE 0.9% 1,000 ML IV SCH ×2 (06:57→16:22)
[2017-03-07 07:28] LABS: Glucose,Whole Blood 94 mg/dL (75-99)
[2017-03-07] MEDS: INSULIN LISPRO (humaLOG) 300 UNIT/3 ML VIAL SQ SCH ×6 (07:29→21:52)
[2017-03-07] MEDS: HEPARIN SODIUM,PORCINE 5,000 UNIT/ML 1 ML VIAL SQ SCH ×2 (07:30→20:41)
[2017-03-07] MEDS: PANTOPRAZOLE 40 MG TABLET PO SCH (07:30)
--- NOTE | 2017-03-07 09:09 | PN ---
PROGRESS NOTE DATE OF SERVICE: 03/06/2017. REASON FOR FOLLOWUP: Scalp abscess. INTERVAL HISTORY: The patient did have a fever of 101.5 last night. Afebrile this morning. The patient has been breathing comfortably. Pain to the scalp area has improved. There is no drainage from it. Denies chest pain, shortness of breath, cough. No abdominal pain or any diarrhea. PHYSICAL EXAMINATION: Blood pressure 105/57 with a pulse of 80, temperature of 98, T-max 101.5. She is 96% on room air. General description is a middle-aged female, up in the bed in no distress. HEENT examination scalp area, very minimal fluctuation, no induration was noted. No surrounding redness. LUNGS: Unlabored breathing, clear to auscultation anteriorly. HEART: S1, S2, regular rate and rhythm. ABDOMEN: Soft, no tenderness. LABS: BUN of 2 with a creatinine of 0.40, hemoglobin 10.5, white count of 3.2. Wound culture finalized with MSSA, blood culture has been negative. DIAGNOSTIC IMPRESSION AND PLAN: Patient with a methicillin-sensitive Staphylococcus aureus scalp abscess, status post drainage with very minimal fluctuation at this point. Patient is still having a fever which is very unusual. She did have slightly elevated liver enzymes. Will repeat a liver enzyme in the morning and ultrasound of the abdomen. Keep the patient on cefazolin, discontinue the vancomycin and will re-evaluate the patient tomorrow. RAMYAL / ANYN: [id number] /
--- NOTE | 2017-03-07 09:26 | US ---
EXAMINATION TYPE: US abdomen complete DATE OF EXAM: 03/07/2017 COMPARISON: NONE CLINICAL HISTORY: Fever , elevated LFT. UTI EXAM MEASUREMENTS: Liver Length: 18.4 cm Gallbladder Wall: 0.1 cm CBD: 0.2 cm Spleen: 10.2 cm Right Kidney: 11.4 x 6.1 x 4.9 cm Left Kidney: 10.9 x 5.3 x 5.6 cm Pancreas: No evident lesion in its visualized portions Liver: heterogeneous appearance, somewhat coarse echotexture, and there is no evident mass. Gallbladder: wnl Evidence for sonographic Schneider's sign: No CBD: wnl Spleen: wnl; small amount ascites noted superiorly to spleen Right Kidney: No hydronephrosis or masses seen Left Kidney: No hydronephrosis or masses seen Upper IVC: Unremarkable in its visualized portions Abd Aorta: No evident aneurysm Small amount of fluid seen at the level of the posterior aspect of the liver may be related to ascite s rather than pleural effusion IMPRESSION: Minimal fluid is identified posteriorly as described, there is minimal ascites
[2017-03-07 10:33] LABS: Aty Lym Flag Slight; CHCM 31.3; HCT 31.6 % (34.0-46.0); HDW 2.94; HGB 10.2 gm/dL (11.4-16.0); Hypochromasia Slight; MCH 27.1 pg (25.0-35.0); MCHC 32.3 g/dL (31.0-37.0); MCV 83.6 fL (80.0-100.0); Mean Platelet Volume 6.8; RBC 3.78 m/uL (3.80-5.40); RDW 13.8 % (11.5-15.5); WBC 2.7 k/uL (3.8-10.6); WBC (Perox) 2.81
[2017-03-07 11:03] LABS: ALT 55 U/L (9-52); AST 53 U/L (14-36); Alkaline Phosphatase 136 U/L (38-126); Anion Gap 9 mmol/L; Blood Urea Nitrogen <2 mg/dL (7-17); Carbon Dioxide 25 mmol/L (22-30); Chloride 109 mmol/L (98-107); Glucose 140 mg/dL (74-99); Non-African American GFR(MDRD) >60 (>60 ml/min/1.73 sqM); Potassium 4.1 mmol/L (3.5-5.1); Sodium 143 mmol/L (137-145); Total Bilirubin 0.2 mg/dL (0.2-1.3); Total Protein 6.4 g/dL (6.3-8.2)
[2017-03-07 11:39] LABS: Glucose,Whole Blood 125 mg/dL (75-99)
[2017-03-07 11:42] LABS: Add Differential Manual Differential
[2017-03-07 11:47] LABS: Band Neutrophils % 4 %; Nucleated Red Blood Cells 0 /100 WBC (0-0); Total Cells Counted 100
[2017-03-07 11:49] LABS: Manual Review Performed
[2017-03-07] MEDS: HYDROcodone/APAP 5-325MG 1 EACH TAB PO PRN ×2 (13:02→20:28)
--- NOTE | 2017-03-07 13:30 | P.PN ---
Subjective Patient admitted with a scalp abscess. Wound culture growing presumptive staph aureus. Currently on vancomycin and consult. Patient still having fevers. She had a temporal 101.5 yesterday. Pain is controlled. Infectious disease following. Denies any chest pain or shortness of breath. Doesn't to some nausea. And decrease in appetite. Denies any bowel movement changes or urinary symptoms. Did have a blood sugar of 72 Lantus adjusted. 9817 wound culture for the scalp abscess is growing MSSA. Patient currently on. Patient is been having low-grade temps. Her last temp of 100.8 was yesterday around 3:00. Patient still having significant tenderness and swelling in that abscess. She denies any chest pain or shortness of breath. Does admit to a cough and some postnasal drip. She denies any nausea or vomiting. Bowel movement changes or urinary symptoms. Repeat urinalysis negative Objective - Vital Signs Vital signs: Vital Signs Temp 97.8 F 03/07/17 07:00 Pulse 81 03/07/17 07:00 Resp 16 03/07/17 07:00 BP 122/64 03/07/17 07:00 Pulse Ox 93 L 03/07/17 07:00 Intake & Output 03/06/17 03/07/17 03/07/17 18:59 06:59 18:59 Intake Total 1200 Output Total 450 Balance 1200 -450 Intake: Oral 1200 Output: Urine 450 Other: Voiding Method Toilet Toilet # Voids 3 1 - Exam Head normocephalic. Top of the head there is an abscess that is fluctuant in the size of a quarter. Tender with palpation Neck supple Lungs clear to auscultation bilaterally no wheezing or crackles Heart regular rate and rhythm S1-S2, no rub or gallop Abdomen is soft nontender nondistended positive bowel sounds no hepatosplenomegaly Extremities no edema Neuro alert and orientated to 3 - Labs CBC & Chem 7: 03/07/17 10:18 03/07/17 10:18 Labs: Abnormal Lab Results - Last 24 Hours (Table) 03/06/17 03/06/17 03/06/17 Range/Units 15:13 16:54 20:38 WBC (3.8-10.6) k/uL RBC (3.80-5.40) m/uL Hgb (11.4-16.0) gm/dL Hct (34.0-46.0) % Potassium 3.4 L (3.5-5.1) mmol/L Chloride (98-107) mmol/L BUN <2 L (7-17) mg/dL Creatinine 0.40 L (0.52-1.04) mg/dL Glucose 172 H (74-99) mg/dL POC Glucose (mg/dL) 119 H 119 H (75-99) mg/dL Calcium 8.1 L (8.4-10.2) mg/dL AST (14-36) U/L ALT (9-52) U/L Alkaline Phosphatase (38-126) U/L Albumin (3.5-5.0) g/dL Urine Appearance (Clear) Urine Bacteria (None) /hpf Urine Mucus (None) /hpf 03/06/17 03/07/17 03/07/17 Range/Units 22:35 10:18 10:18 WBC 2.7 L (3.8-10.6) k/uL RBC 3.78 L (3.80-5.40) m/uL Hgb 10.2 L (11.4-16.0) gm/dL Hct 31.6 L (34.0-46.0) % Potassium (3.5-5.1) mmol/L Chloride 109 H (98-107) mmol/L BUN <2 L (7-17) mg/dL Creatinine 0.49 L (0.52-1.04) mg/dL Glucose 140 H (74-99) mg/dL POC Glucose (mg/dL) (75-99) mg/dL Calcium 8.0 L (8.4-10.2) mg/dL AST 53 H (14-36) U/L ALT 55 H (9-52) U/L Alkaline Phosphatase 136 H (38-126) U/L Albumin 2.9 L (3.5-5.0) g/dL Urine Appearance Cloudy H (Clear) Urine Bacteria Occasional H (None) /hpf Urine Mucus Rare H (None) /hpf 03/07/17 Range/Units 11:37 WBC (3.8-10.6) k/uL RBC (3.80-5.40) m/uL Hgb (11.4-16.0) gm/dL Hct (34.0-46.0) % Potassium (3.5-5.1) mmol/L Chloride (98-107) mmol/L BUN (7-17) mg/dL Creatinine (0.52-1.04) mg/dL Glucose (74-99) mg/dL POC Glucose (mg/dL) 125 H (75-99) mg/dL Calcium (8.4-10.2) mg/dL AST (14-36) U/L ALT (9-52) U/L Alkaline Phosphatase (38-126) U/L Albumin (3.5-5.0) g/dL Urine Appearance (Clear) Urine Bacteria (None) /hpf Urine Mucus (None) /hpf Microbiology - Last 24 Hours (Table) 03/06/17 22:35 Urine Culture - Preliminary Urine,Voided 03/04/17 16:00 Gram Stain - Final Head Wound Culture - Final Staphylococcus aureus 03/03/17 17:12 Blood Culture - Preliminary Blood No Growth after 72 hours Assessment and Plan Plan: 1. Scalp abscess with sepsis. status post drainage by infectious disease. Wound culture growing MSSA. Continue with the. Infectious disease discontinued the vancomycin. Patient is still having low-grade temps. Case discussed with infectious disease. At this time we'll consult surgical service patient may need incision and drainage of that scalp abscess. Dr. Monroe is recommending Keflex at time of discharge and to have patient follow-up with him in the office next week when patient is discharged. 2. UTI with urine culture growing strep achalasia. Repeat urinalysis negative 3. Diabetes mellitus type 2: Blood sugar of 94 this morning. Patient has been relieved refusing her Humalog 15 units scheduled with meals. Blood sugars have been fine. We'll discontinue the scheduled Humalog. Continue with her Lantus at 27 units at bedtime and sliding scale coverage. Hemoglobin A1c 12.9 4. Elevated LFTs: Trending down. Abdominal ultrasound showed only a small amount of fluid around the liver suggestive of ascites. No gallbladder disease 5. Hypokalemia: Resolved 6. Patient still having low-grade temps. Infectious disease is following. Possibly related to her scalp abscess. Patient does admit to having a cough nursing crackles at the bases. Check chest x-ray. Awaiting repeat blood cultures GI prophylaxis Protonix and DVT prophylaxis subcu heparin I performed an examination of the patient and discussed their management with the physician Curve Cleaner. I have reviewed the Physician Curve Cleaner's notes and agree with the documented findings and plan of care
--- NOTE | 2017-03-07 13:52 | XR ---
EXAMINATION TYPE: XR chest 2V DATE OF EXAM: 03/07/2017 COMPARISON: Prior chest x-ray 03/03/2017 HISTORY: Cough TECHNIQUE: Frontal and lateral views of the chest are obtained. FINDINGS: Interval development of bibasilar increased density, retrocardiac Grams suspected. No pneumothorax or evident effusion. Heart size is within normal limits. Pulmonary v ascularity and ghazal are stable. IMPRESSION: Correlate for basilar pneumonia, atelectasis. Follow-up is recommended.
[2017-03-07 17:08] LABS: Glucose,Whole Blood 90 mg/dL (75-99)
[2017-03-07] MEDS ORDERED: LIDOCAINE 1% INJ 10MG/ML (20 ML MDV) SQ ONE (18:42)
--- NOTE | 2017-03-07 18:57 | P.GSCN ---
History of Present Illness Consult date: 03/07/17 Reason for Consult: Scalp abscess History of present illness: Patient hospitalized for pain at the superior aspect of her scalp. The patient had a small abscess drained at the bedside by in infectious disease. The incision site however resealed and the patient has developed a recurrent abscess at that location. No history of similar events. She has had intermittent fevers. She has had some redness and tenderness in that location as well. Cultures showing staph aureus. Review of Systems The patient denies any acute changes in vision or hearing, no dysphagia or odynophagia, no chest pain or shortness of breath, no dysuria or hematuria, no headache, no runny nose, no rectal bleeding or melena, no unexplained weight loss Past Medical History Past Medical History: Diabetes Mellitus History of Any Multi-Drug Resistant Organisms: None Reported Past Surgical History: Section Additional Past Surgical History / Comment(s): x 2 Past Anesthesia/Blood Transfusion Reactions: No Reported Reaction Past Psychological History: No Psychological Hx Reported Smoking Status: Never smoker Past Alcohol Use History: None Reported Past Drug Use History: None Reported - Past Family History Father Family Medical History: Cancer, Diabetes Mellitus Additional Family Medical History / Comment(s): Diabetes also on mother's side; Heart disease Medications and Allergies Home Medications Medication Instructions Recorded Confirmed Type INSULIN LISPRO (humaLOG) [humaLOG 15 unit SQ AC-TID 10/09/14 03/03/17 History (formulary)] Insulin Glargine [Lantus] 30 unit SQ HS 03/03/17 03/03/17 History Allergies Allergy/AdvReac Type Severity Reaction Status Date / Time shellfish derived Allergy Anaphylaxis Verified 03/03/17 16:41 Surgical - Exam Vital Signs Temp Pulse Resp BP Pulse Ox 102.5 F H 112 H 18 124/79 96 03/03/17 16:01 03/03/17 16:01 03/03/17 16:01 03/03/17 16:01 03/03/17 16:01 Physical exam: General: Well-developed, well-nourished HEENT: 1.5-2 cm abscess at the dome of the scalp, mild erythema, mild tenderness , no drainage, positive fluctuance, sclerae nonicteric Abdomen: Nontender, nondistended Extremities: No edema Neuro: Alert and oriented Results - Labs 03/07/17 10:18 03/07/17 10:18 Abnormal Lab Results - Last 24 Hours (Table) 03/06/17 03/06/17 03/07/17 Range/Units 20:38 22:35 10:18 WBC 2.7 L (3.8-10.6) k/uL RBC 3.78 L (3.80-5.40) m/uL Hgb 10.2 L (11.4-16.0) gm/dL Hct 31.6 L (34.0-46.0) % Chloride (98-107) mmol/L BUN (7-17) mg/dL Creatinine (0.52-1.04) mg/dL Glucose (74-99) mg/dL POC Glucose (mg/dL) 119 H (75-99) mg/dL Calcium (8.4-10.2) mg/dL AST (14-36) U/L ALT (9-52) U/L Alkaline Phosphatase (38-126) U/L Albumin (3.5-5.0) g/dL Urine Appearance Cloudy H (Clear) Urine Bacteria Occasional H (None) /hpf Urine Mucus Rare H (None) /hpf 03/07/17 03/07/17 Range/Units 10:18 11:37 WBC (3.8-10.6) k/uL RBC (3.80-5.40) m/uL Hgb (11.4-16.0) gm/dL Hct (34.0-46.0) % Chloride 109 H (98-107) mmol/L BUN <2 L (7-17) mg/dL Creatinine 0.49 L (0.52-1.04) mg/dL Glucose 140 H (74-99) mg/dL POC Glucose (mg/dL) 125 H (75-99) mg/dL Calcium 8.0 L (8.4-10.2) mg/dL AST 53 H (14-36) U/L ALT 55 H (9-52) U/L Alkaline Phosphatase 136 H (38-126) U/L Albumin 2.9 L (3.5-5.0) g/dL Urine Appearance (Clear) Urine Bacteria (None) /hpf Urine Mucus (None) /hpf Microbiology - Last 24 Hours (Table) 03/06/17 11:13 Blood Culture - Preliminary Blood No Growth after 24 hours 03/06/17 22:35 Urine Culture - Preliminary Urine,Voided 03/04/17 16:00 Gram Stain - Final Head Wound Culture - Final Staphylococcus aureus 03/03/17 17:12 Blood Culture - Preliminary Blood No Growth after 72 hours Diabetes panel 03/07/17 Range/Units 10:18 Sodium 143 (137-145) mmol/L Potassium 4.1 (3.5-5.1) mmol/L Chloride 109 H (98-107) mmol/L Carbon Dioxide 25 (22-30) mmol/L BUN <2 L (7-17) mg/dL Creatinine 0.49 L (0.52-1.04) mg/dL Glucose 140 H (74-99) mg/dL Calcium 8.0 L (8.4-10.2) mg/dL AST 53 H (14-36) U/L ALT 55 H (9-52) U/L Alkaline Phosphatase 136 H (38-126) U/L Total Protein 6.4 (6.3-8.2) g/dL Albumin 2.9 L (3.5-5.0) g/dL Calcium panel 03/07/17 Range/Units 10:18 Calcium 8.0 L (8.4-10.2) mg/dL Albumin 2.9 L (3.5-5.0) g/dL Pituitary panel 03/07/17 Range/Units 10:18 Sodium 143 (137-145) mmol/L Potassium 4.1 (3.5-5.1) mmol/L Chloride 109 H (98-107) mmol/L Carbon Dioxide 25 (22-30) mmol/L BUN <2 L (7-17) mg/dL Creatinine 0.49 L (0.52-1.04) mg/dL Glucose 140 H (74-99) mg/dL Calcium 8.0 L (8.4-10.2) mg/dL Adrenal panel 03/07/17 Range/Units 10:18 Sodium 143 (137-145) mmol/L Potassium 4.1 (3.5-5.1) mmol/L Chloride 109 H (98-107) mmol/L Carbon Dioxide 25 (22-30) mmol/L BUN <2 L (7-17) mg/dL Creatinine 0.49 L (0.52-1.04) mg/dL Glucose 140 H (74-99) mg/dL Calcium 8.0 L (8.4-10.2) mg/dL Total Bilirubin 0.2 (0.2-1.3) mg/dL AST 53 H (14-36) U/L ALT 55 H (9-52) U/L Alkaline Phosphatase 136 H (38-126) U/L Total Protein 6.4 (6.3-8.2) g/dL Albumin 2.9 L (3.5-5.0) g/dL Assessment and Plan (1) Scalp abscess Narrative/Plan: Will proceed with bedside incision and drainage. Risks of bleeding and wound formation discussed. Status: Acute
--- NOTE | 2017-03-07 18:58 | P.PCN ---
Date of Procedure: 03/07/17 Preoperative Diagnosis: Postoperative Diagnosis: Procedure(s) Performed: Area was prepped with Betadine. The area was then localized with lidocaine. Small incision was then created using a 4 mm punch biopsy. Purulent fluid was evacuated. Minimal bleeding was seen. Sterile dressing was applied. Implants: Indications for Procedure: Operative Findings: Description of Procedure:
[2017-03-07 21:42] LABS: Glucose,Whole Blood 157 mg/dL (75-99)
[2017-03-07] MEDS: INSULIN GLARGINE 100 UNIT/ML 10 ML VIAL SQ SCH (21:52)
[2017-03-08] MEDS: ceFAZolin 2 GM in SODIUM CHLORIDE 0.9% 100 ML IVPB SCH ×2 (00:01→07:30)
[2017-03-08] MEDS: HYDROcodone/APAP 5-325MG 1 EACH TAB PO PRN ×2 (04:21→11:35)
[2017-03-08] MEDS: SODIUM CHLORIDE 0.9% 1,000 ML IV SCH ×2 (04:22→12:27)
[2017-03-08] MEDS: PANTOPRAZOLE 40 MG TABLET PO SCH (07:30)
[2017-03-08] MEDS: HEPARIN SODIUM,PORCINE 5,000 UNIT/ML 1 ML VIAL SQ SCH (07:32)
[2017-03-08 07:45] LABS: Glucose,Whole Blood 83 mg/dL (75-99)
[2017-03-08] MEDS: INSULIN LISPRO (humaLOG) 300 UNIT/3 ML VIAL SQ SCH ×2 (07:45→12:42)
[2017-03-08 07:52] LABS: Aty Lym Flag Slight; CH 27.2; CHCM 33.4; HCT 30.5 % (34.0-46.0); HDW 3.01; HGB 9.9 gm/dL (11.4-16.0); MCH 26.6 pg (25.0-35.0); MCHC 32.4 g/dL (31.0-37.0); MCV 82.1 fL (80.0-100.0); Mean Platelet Volume 7.2; RBC 3.72 m/uL (3.80-5.40); RDW 14.6 % (11.5-15.5); WBC 2.6 k/uL (3.8-10.6); WBC (Perox) 3.03
[2017-03-08 07:59] VITALS: BP 133/73; PULSE 76; RESP 16; TEMP 97.9
[2017-03-08 08:21] LABS: ALT 45 U/L (9-52); AST 47 U/L (14-36); Alkaline Phosphatase 137 U/L (38-126); Anion Gap 7 mmol/L; Blood Urea Nitrogen <2 mg/dL (7-17); Calcium 8.1 mg/dL (8.4-10.2); Carbon Dioxide 26 mmol/L (22-30); Chloride 109 mmol/L (98-107); Glucose 92 mg/dL (74-99); Non-African American GFR(MDRD) >60 (>60 ml/min/1.73 sqM); Potassium 3.6 mmol/L (3.5-5.1); Sodium 142 mmol/L (137-145); Total Bilirubin 0.1 mg/dL (0.2-1.3); Total Protein 6.2 g/dL (6.3-8.2)
[2017-03-08 08:31] LABS: Add Differential Manual Differential
[2017-03-08 08:34] LABS: Manual Review Performed; Metamyelocytes % 1 %; Nucleated Red Blood Cells 0 /100 WBC (0-0)
[2017-03-08 08:37] LABS: Total Cells Counted 200
[2017-03-08 08:38] LABS: RBC Morphology Normal
[2017-03-08 11:53] LABS: Glucose,Whole Blood 90 mg/dL (75-99)
--- NOTE | 2017-03-08 12:09 | PN ---
PROGRESS NOTE DATE OF SERVICE: 03/07/2017. REASON FOR FOLLOW UP: Scalp abscess. INTERVAL HISTORY: The patient has been afebrile this morning. Surgery has been consulted. We did a bedside drainage of this scalp abscess. The patient denies any chest pain, or shortness of breath. Has very minimal cough. No abdominal pain or diarrhea. EXAMINATION: Blood pressure 124/73 with a pulse of 76, temperature 98.9, she is 93% on room air. General description is an elderly female up in the bed in no distress. HEENT examination: Scalp area with small area before the drainage. Lungs: Unlabored breathing. Clear to auscultation. Heart is S1, S2. Regular rate and rhythm. ABDOMEN: Soft, no tenderness. LABS: Hemoglobin of 10.3, white count 2.7, BUN of 2, creatinine 0.49. DIAGNOSTIC IMPRESSION AND PLAN: Patient with Methicillin-sensitive Staphylococcus aureus scalp abscess status post drainage with repeat surgical drainage today. Patient's fever seemed to have resolved. She will continue on cefazolin with plan to finish therapy with p.o. Keflex with outpatient follow up. MMODL / IJN: [id number] /
--- NOTE | 2017-03-08 13:06 | P.DS ---
Providers Date of admission: 03/05/17 08:31 Expected date of discharge: 03/08/17 Attending physician: Rober Buchanan Consults: 03/04/17 12:38 Consult Physician Routine Consulting Provider: Shelli Monroe Consult Reason/Comments: fever Do you want consulting provider notified?: Yes 03/07/17 12:52 Consult Physician Routine Consulting Provider: Nitin Luna Consult Reason/Comments: scalp abscess Do you want consulting provider notified?: Yes Primary care physician: [facility] Course: Dignoses on discharge: 1. Scalp abscess with sepsis. status post drainage by infectious disease. Wound culture growing MSSA. Continue with the. Infectious disease discontinued the vancomycin. Patient is still having low-grade temps. Case discussed with infectious disease. At this time we'll consult surgical service patient may need incision and drainage of that scalp abscess. Dr. Monroe is recommending Keflex at time of discharge and to have patient follow-up with him in the office next week when patient is discharged. 2. Positive urine culture for less than 10,000 colonies of strep agalactiae 3. Diabetes mellitus type 2: Blood sugar of 94 this morning. Patient has been relieved refusing her Humalog 15 units scheduled with meals. Blood sugars have been fine. We'll discontinue the scheduled Humalog. Continue with her Lantus at 27 units at bedtime and sliding scale coverage. Hemoglobin A1c 12.9 4. Elevated LFTs: Trending down. Abdominal ultrasound showed only a small amount of fluid around the liver suggestive of ascites. No gallbladder disease 5. Hypokalemia: Resolved 6. Patient still having low-grade temps. Infectious disease is following. Possibly related to her scalp abscess. Patient does admit to having a cough nursing crackles at the bases. Check chest x-ray. Awaiting repeat blood cultures Hospital course: This is a 31-year-old female with past medical history significant for type 2 diabetes mellitus who presented to the hospital with fever and chills. Patient said that for the past few days she has been feeling progressively weak. Yesterday she started having fevers and chills and was having a lot of nausea but no vomiting. She denies abdominal pain. No diarrhea. No blood in her stool. Patient presented to the emergency room was found to have a high-grade fever of 101.7. Her urinalysis was ultimately positive but patient denies any urinary symptoms. She was started on IV ceftriaxone and was admitted to the hospital for further evaluation. She reports feeling better this morning. No fever documented since admission. All tests were done to identify the cause of fever, including urine analysis which was negative, chest x-ray which was negative on admission, and abdominal ultrasound, which failed to reveal any reason for fever. Infectious disease consultation was requested, patient had tenderness in her scalp, further evaluation revealed evidence of abscess formation, surgical consultation was requested patient was seen by Dr. Jj and incision and drainage of her scalp abscess was done. Patient was seen by Dr. Monroe and infectious disease consultation she was maintained on IV ceftriaxone, fever resolved she was switched to oral Keflex and was discharged home on 03/08/2017 She'll be followed by Dr. Buchanan in 1 week. Patient Condition at Discharge: Stable Plan - Discharge Summary New Discharge Prescriptions: New Cephalexin [Keflex] 500 mg PO Q8HR #30 cap Ibuprofen [Motrin] 600 mg PO Q6HR PRN tab PRN Reason: Mild Pain Or Fever > 100.5 Continue INSULIN LISPRO (humaLOG) [humaLOG (formulary)] 15 unit SQ AC-TID Insulin Glargine [Lantus] 30 unit SQ HS Discharge Medication List INSULIN LISPRO (humaLOG) [humaLOG (formulary)] 15 unit SQ AC-TID 10/09/14 [ History] Insulin Glargine [Lantus] 30 unit SQ HS 03/03/17 [History] Cephalexin [Keflex] 500 mg PO Q8HR #30 cap 03/07/17 [Rx] Ibuprofen [Motrin] 600 mg PO Q6HR PRN tab 03/08/17 [Rx] Follow up Appointment(s)/Referral(s): Rober Buchanan MD [Primary Care Provider] - 1 Week Shelli Monroe MD [STAFF PHYSICIAN] - 1 Week Patient Instructions/Handouts: Urinary Tract Infection in Women (DC), Abscess ( GEN) Activity/Diet/Wound Care/Special Instructions: Cardiac, diabetic diet. Activity as tolerated. Keep wound to scalp clean and dry.
--- NOTE | 2017-03-08 14:39 | P.PN ---
Progress Note - Text The patient feels well. Her scalp wound is stable. She will follow Dr. Luna next week.
== END 2017-03-08 13:38 | disposition home or self-care (01) | DRG 872 ==
LOC: EC 16:00 → 4MS4W 18:39 → OBSVTOIN 03-05 08:31 → 4MS4W 03-06 20:56
PROVIDERS: ADMIT Internal Medicine; ATTEND Internal Medicine
PROC: 0HB0XZX Excision of Scalp Skin, External Approach, Diagnostic (ICD-10-PCS; principal; 2017-03-07)
DX: A41.9 Sepsis, unspecified organism (principal); E11.65 Type 2 diabetes mellitus with hyperglycemia; N39.0 Urinary tract infection, site not specified; L02.811 Cutaneous abscess of head [any part, except face]; A08.4 Viral intestinal infection, unspecified; B95.61 Methicillin susceptible Staphylococcus aureus infection as the cause of diseases classified elsewhere; E87.6 Hypokalemia; B95.4 Other streptococcus as the cause of diseases classified elsewhere; Z79.4 Long term (current) use of insulin; Z91.013 Allergy to seafood; Z80.8 Family history of malignant neoplasm of other organs or systems; Z83.3 Family history of diabetes mellitus; Z82.49 Family history of ischemic heart disease and other diseases of the circulatory system; Z79.1 Long term (current) use of non-steroidal anti-inflammatories (NSAID)
CPT/HCPCS: 36415; 71020; 76700; 80048; 80053; 80202; 81001; 81025; 82009; 82150; 83036; 83605; 83690; 85025; 86704; 86708; 86803; 87040; 87070; 87077; 87086; 87186; 87205; 87340; 87491; 87502; 87591; 96365; 96368; 96375; 99284

== ENCOUNTER 2017-05-14 20:49 | Emergency (ER) | payer OTHER ==
[2017-05-14 20:54] VITALS: RESP 18; TEMP 98.4
--- NOTE | 2017-05-14 22:05 | XR ---
EXAMINATION TYPE: XR tibia fibula LT DATE OF EXAM: 05/14/2017 CLINICAL HISTORY: Left leg pain. TECHNIQUE: Two views of the left leg are obtained. COMPARISON: None. FINDINGS: There is no acute fracture or dislocation seen in the left tibia or fibula. The left knee and ankle joints appear within normal limits. The overlying soft tissue appears unremarkable. IMPRESSION: There is no acute fracture or dislocation seen in the left tibia or fibula. Unremarkable study.
--- NOTE | 2017-05-14 22:07 | XR ---
EXAMINATION TYPE: XR lumbar spine 2 or 3V DATE OF EXAM: 05/14/2017 CLINICAL HISTORY: Low back pain per water. Bilateral leg pain for one week. TECHNIQUE: Frontal and lateral images of the lumbar spine are obtained. COMPARISON: Lumbar spine x-ray October 25, 2016 FINDINGS: There are 5 lumbar type vertebral bodies identified. The lumbar spine shows satisfactory alignment without evidence of acute fracture or dislocation. Vertebral body heights and disk space he ights are within normal limits. The overlying soft tissue appears unremarkable. IMPRESSION: No acute fracture or dislocation is seen in the lumbar spine. Unremarkable study. No sig nificant change from prior.
--- NOTE | 2017-05-14 22:27 | ED ---
General Adult HPI - General Chief complaint: Extremity Injury, Lower Stated complaint: Leg Pain Time Seen by Provider: 05/14/17 21:07 Source: patient, RN notes reviewed Mode of arrival: ambulatory Limitations: no limitations - History of Present Illness Initial comments: This is a 31-year-old female who presents to the emergency department with chief complaint of bilateral leg tingling. Patient states that for the past week and a half she has been experiencing pain from her bilateral anterior thighs down to her feet. She states that there is numbness and tingling. Patient denies any specific injury or trauma. Patient denies low back pain or weakness. States she is ambulating normally. Denies fever, chills, chest pain, shortness of breath, abdominal pain, nausea or vomiting, constipation or diarrhea, dysuria or hematuria, headache or vision changes. - Related Data Home Medications Medication Instructions Recorded Confirmed INSULIN LISPRO (humaLOG) [humaLOG] 15 unit SQ AC-TID 10/09/14 05/14/17 Insulin Glargine [Lantus] 30 unit SQ HS 03/03/17 05/14/17 Previous Rx's Medication Instructions Recorded Ibuprofen [Motrin] 600 mg PO Q6HR PRN tab 03/08/17 Allergies Allergy/AdvReac Type Severity Reaction Status Date / Time shellfish derived Allergy Anaphylaxis Verified 05/14/17 20:53 Review of Systems ROS Statement: Those systems with pertinent positive or pertinent negative responses have been documented in the HPI. ROS Other: All systems not noted in ROS Statement are negative. Past Medical History Past Medical History: Diabetes Mellitus History of Any Multi-Drug Resistant Organisms: None Reported Past Surgical History: Section Additional Past Surgical History / Comment(s): x 2 Past Anesthesia/Blood Transfusion Reactions: No Reported Reaction Past Psychological History: No Psychological Hx Reported Smoking Status: Never smoker Past Alcohol Use History: None Reported Past Drug Use History: None Reported - Past Family History Father Family Medical History: Cancer, Diabetes Mellitus Additional Family Medical History / Comment(s): Diabetes also on mother's side; Heart disease General Exam - General Exam Comments Initial Comments: General: Awake and alert, well-developed; in no apparent distress. HEENT: Head atraumatic, normocephalic. Pupils are equal, round and reactive to light. Extraocular movements intact. Oropharynx moist without erythema or exudate. Neck: Supple. Normal ROM. Cardiovascular: Regular rate and rhythm. No murmurs, rubs or gallops. Chest symmetrical. Respiratory: Lungs clear to auscultation bilaterally. No wheezes, rales or rhonchi. Normal respiratory effort with no use of accessory muscles. Musculoskeletal: No tenderness on palpation of lumbar spine or paraspinous muscles. Patient has normal active range of motion of spine. There is tenderness on palpation of left lower extremity overlying the tibia. Patient has normal active range of motion of bilateral knees, ankles and digits. Sensation is intact. Pulses are 2+ equal and palpable bilaterally. Skin: [place], warm and dry without rashes or lesions. Neurological: Alert and oriented x3. CN II-XII grossly intact. Speech is fluent and answers are appropriate. No focal neuro deficits. Psychiatric: Normal mood and affect. No overt signs of depression or anxiety noted. Limitations: no limitations Course Vital Signs 05/14/17 20:51 Temperature 98.4 F Pulse Rate 72 Respiratory 18 Rate Blood Pressure 135/74 O2 Sat by Pulse 98 Oximetry Medical Decision Making - Medical Decision Making This is a 31-year-old female who presents to the emergency department with chief complaint of bilateral lower extremity pain. X-ray of tibia and fibula of left lower extremity revealed no acute abnormalities. Lumbar spine x-ray also revealed no acute abnormalities. Upon discussion of these findings, patient states that she feels like her blood sugar is dropping. She states that she has type 2 diabetes and has not eaten in two and a half hours. Bedside glucose was checked at approximately 2230 and it was 49. Patient provided with orange juice, crackers and peanut butter. On recheck at 2250 PM blood glucose was 98. Patient is feeling well and is in no acute distress. Patient will be discharged home with recommendation to follow up with her primary care provider within 1-2 days. Patient is in agreement with the plan voices understanding. All questions are answered. - Lab Data Lab Results 05/14/17 Range/Units 22:31 POC Glucose (mg/dL) 49 L (75-99) mg/dL POC Glu Plastic Surgery Technician ID Riri Nelson - Radiology Data Radiology results: report reviewed X-ray left tibia/fibula findings: There is no acute fracture or dislocation seen in the left tibia or fibula. The left knee and ankle joints appear within normal limits. The overlying soft tissue appears unremarkable. Impression: There is no acute fracture or dislocation seen in the left tibia or fibula. Unremarkable study. X-ray lumbar spine findings: There are 5 lumbar type vertebral bodies identified. The lumbar spine show satisfactory alignment without evidence of acute fracture or dislocation. Vertebral body height and disc space heights are within normal limits. The overlying soft tissue appears unremarkable. Impression: No acute fracture or dislocation is seen in the lumbar spine. Unremarkable study. No significant change from prior. Disposition Clinical Impression: Paresthesia of both lower extremities Disposition: HOME SELF-CARE Condition: Good Instructions: Paresthesia (ED) Additional Instructions: Please follow up with primary care provider within 1-2 days. Return to emergency department if symptoms should worsen or any concerns arise. Referrals: Rober Cantu MD [Primary Care Provider] - 1-2 days Time of Disposition: 22:52
[2017-05-14 22:34] LABS: Glucose,Whole Blood 49 mg/dL (75-99)
[2017-05-14 22:53] LABS: Glucose,Whole Blood 98 mg/dL (75-99)
[2017-05-14 23:00] VITALS: BP 135/70; PULSE 70
== END 2017-05-14 23:00 | disposition home or self-care (01) ==
LOC: EC 20:49
DX: R20.2 Paresthesia of skin (principal); M79.651 Pain in right thigh; M79.652 Pain in left thigh; M79.661 Pain in right lower leg; M79.662 Pain in left lower leg; M79.671 Pain in right foot; M79.672 Pain in left foot; R20.0 Anesthesia of skin; E11.9 Type 2 diabetes mellitus without complications; Z79.4 Long term (current) use of insulin; Z91.013 Allergy to seafood
CPT/HCPCS: 36415; 72100; 99283

== ENCOUNTER 2017-06-26 16:59 | Emergency (ER) | payer OTHER ==
[2017-06-26 19:27] LABS: Anisocytosis Slight; Basophils % (A) 0 %; CH 25.4; CHCM 32.4; Eosinophils % (A) 1 %; HCT 36.7 % (34.0-46.0); HDW 2.68; HGB 12.1 gm/dL (11.4-16.0); Luc # (Auto) 0.09; Luc % (Auto) 3; Lymphocytes # (A) 1.3 k/uL (1.0-4.8); Lymphocytes % (A) 49 %; MCH 25.9 pg (25.0-35.0); MCHC 32.8 g/dL (31.0-37.0); MCV 78.8 fL (80.0-100.0); Mean Platelet Volume 7.7; Microcytosis Slight; Monocytes # (A) 0.1 k/uL (0-1.0); Monocytes % (A) 5 %; Neutrophils # (A) 1.1 k/uL (1.3-7.7); Neutrophils % (A) 41 %; RBC 4.66 m/uL (3.80-5.40); RDW 16.3 % (11.5-15.5); WBC 2.6 k/uL (3.8-10.6); WBC (Perox) 2.61
[2017-06-26 19:32] LABS: Anion Gap 9 mmol/L; Blood Urea Nitrogen 6 mg/dL (7-17); Calcium 9.4 mg/dL (8.4-10.2); Carbon Dioxide 28 mmol/L (22-30); Chloride 99 mmol/L (98-107); Glucose 335 mg/dL (74-99); Non-African American GFR(MDRD) >60 (>60 ml/min/1.73 sqM); Potassium 3.6 mmol/L (3.5-5.1); Sodium 136 mmol/L (137-145)
--- NOTE | 2017-06-26 19:34 | XR ---
EXAMINATION: XR chest 2V DATE AND TIME: 06/26/2017 7:25 PM ORDERING PROVIDER: Poncho Chappell DO CLINICAL INDICATION: dizzy TECHNIQUE: PA and lateral COMPARISON: 06/10/2017 DESCRIPTION: The lungs are clear. The pleural spaces are negative. The cardiac silhouette is not enlarged. The mediastinal and pleural silhouettes are unremarkable. The skeletal structures are intact without focal findings. The soft tissues are unremarkable. IMPRESSION: NO ACUTE PROCESS.
[2017-06-26 19:38] LABS: Appearance,Urine Clear (Clear); Bilirubin,Urine Negative (Negative); Glucose,Urine (UA) 4+ (Negative); Ketones,Urine Negative (Negative); Leukocyte Esterase,Urine Negative (Negative); Nitrite,Urine Negative (Negative); PH, Urine 5.5 (5.0-8.0); Protein,Urine Negative (Negative); Specific Gravity,Urine 1.019 (1.001-1.035); UA Billing (MACRO vs. MICRO) CHEM; Urobilinogen,Urine <2.0 mg/dL (<2.0)
--- NOTE | 2017-06-26 20:16 | ED ---
Dizziness HPI - General Chief Complaint: Dizziness Stated Complaint: Headache, Dizzy Time Seen by Provider: 06/26/17 18:48 Source: patient Mode of arrival: ambulatory Limitations: no limitations - History of Present Illness Initial Comments: 31-year-old Afro-[place] female with past medical history of diabetes presenting for evaluation of dizziness and URI symptoms. She states that for the last few days she's been having cough with congestion. When she woke up this morning at 8 AM she had dizziness with an associated headache. She describes the dizziness as room spinning sensation and there is no alleviating factors to standing or sitting. She states that she had normal ambulation and experience no ataxia, vision changes, lightheadedness, fevers, chills, nausea, vomiting. She's not had these symptoms before. Denies at this time. - Related Data Home Medications Medication Instructions Recorded Confirmed INSULIN LISPRO (humaLOG) [humaLOG] 15 unit SQ AC-TID 10/09/14 06/26/17 Insulin Glargine [Lantus] 30 unit SQ HS 03/03/17 06/26/17 glipiZIDE [Glucotrol] 5 mg PO AC-BID 06/26/17 06/26/17 Previous Rx's Medication Instructions Recorded Ibuprofen [Motrin] 600 mg PO Q6HR PRN tab 03/08/17 Allergies Allergy/AdvReac Type Severity Reaction Status Date / Time shellfish derived Allergy Anaphylaxis Verified 06/26/17 19:32 Review of Systems ROS Statement: Those systems with pertinent positive or pertinent negative responses have been documented in the HPI. ROS Other: All systems not noted in ROS Statement are negative. Constitutional: Denies: fever, chills, weakness Eyes: Denies: eye pain, eye discharge ENT: Reports: congestion. Denies: ear pain, throat pain Respiratory: Reports: cough. Denies: dyspnea, wheezes, hemoptysis Cardiovascular: Denies: chest pain, palpitations Endocrine: Denies: fatigue, polydipsia, polyuria Gastrointestinal: Denies: abdominal pain, nausea, vomiting, diarrhea, constipation Genitourinary: Denies: urgency, dysuria, frequency Musculoskeletal: Denies: back pain, arthralgia, myalgia Skin: Denies: rash, lesions Neurological: Reports: headache, other (Dizziness). Denies: weakness, numbness , paresthesias, confusion, abnormal gait Psychiatric: Denies: anxiety, depression Hematological/Lymphatic: Denies: easy bleeding, easy bruising Past Medical History Past Medical History: Diabetes Mellitus History of Any Multi-Drug Resistant Organisms: None Reported Past Surgical History: Section Additional Past Surgical History / Comment(s): x 2 Past Anesthesia/Blood Transfusion Reactions: No Reported Reaction Past Psychological History: No Psychological Hx Reported Smoking Status: Never smoker Past Alcohol Use History: None Reported Past Drug Use History: None Reported - Past Family History Father Family Medical History: Cancer, Diabetes Mellitus Additional Family Medical History / Comment(s): Diabetes also on mother's side; Heart disease General Exam Limitations: no limitations General appearance: alert, in no apparent distress Head exam: Present: atraumatic, normocephalic, normal inspection Eye exam: Present: normal appearance, PERRL, EOMI. Absent: scleral icterus, conjunctival injection, periorbital swelling ENT exam: Present: normal exam, mucous membranes moist Neck exam: Present: normal inspection. Absent: tenderness, meningismus, lymphadenopathy Respiratory exam: Present: normal lung sounds bilaterally. Absent: respiratory distress, wheezes, rales, rhonchi, stridor Cardiovascular Exam: Present: normal rhythm, bradycardia GI/Abdominal exam: Present: soft, normal bowel sounds. Absent: distended, tenderness, guarding, rebound, rigid Rectal exam: Present: deferred Extremities exam: Present: normal inspection, full ROM, normal capillary refill. Absent: tenderness, pedal edema, joint swelling, calf tenderness Back exam: Present: normal inspection Neurological exam: Present: alert, oriented X3, CN II-XII intact, normal gait, reflexes normal. Absent: altered, abnormal gait, motor sensory deficit Psychiatric exam: Present: normal affect, normal mood Skin exam: Present: warm, dry, intact, normal color. Absent: rash Course Vital Signs 06/26/17 17:30 Temperature 97.6 F Pulse Rate 57 L Respiratory 16 Rate Blood Pressure 127/68 O2 Sat by Pulse 98 Oximetry EKG Findings - EKG Comments: EKG Findings:: Sinus pressure today with a ventricular rate of 51, SC interval 164, QRS 84, QT/QTc 442/407. Medical Decision Making - Medical Decision Making 31-year-old Afro-[place] female presented for evaluation of dizziness with associated headache and URI symptoms that started at 8 AM this morning. On physical examination cranial nerves II-12 intact without focal neurologic deficits and she has normal gait and station. Remainder of the physical exam is benign. We'll obtain chest x-ray, EKG, labs and provide IV fluids. Labs revealed no significant abnormalities and chest x-ray showed no acute process. The patient was reevaluated and had resolution of all her symptoms and physical exam remained benign. She was informed of all results and through shared decision making it was determined that should be discharged with instructions to follow-up with her primary care physician or return to this facility if her symptoms worsen or persist. The patient acknowledged an understanding of all information provided and agreed with this plan of care. - Lab Data Result diagrams: 06/26/17 19:11 06/26/17 19:11 Lab Results 06/26/17 06/26/17 06/26/17 Range/Units 19:11 19:11 19:24 WBC 2.6 L (3.8-10.6) k/uL RBC 4.66 (3.80-5.40) m/uL Hgb 12.1 (11.4-16.0) gm/dL Hct 36.7 (34.0-46.0) % MCV 78.8 L (80.0-100.0) fL MCH 25.9 (25.0-35.0) pg MCHC 32.8 (31.0-37.0) g/dL RDW 16.3 H (11.5-15.5) % Plt Count 271 (150-450) k/uL Neutrophils % 41 % Lymphocytes % 49 % Monocytes % 5 % Eosinophils % 1 % Basophils % 0 % Neutrophils # 1.1 L (1.3-7.7) k/uL Lymphocytes # 1.3 (1.0-4.8) k/uL Monocytes # 0.1 (0-1.0) k/uL Eosinophils # 0.0 (0-0.7) k/uL Basophils # 0.0 (0-0.2) k/uL Anisocytosis Slight Microcytosis Slight Sodium 136 L (137-145) mmol/L Potassium 3.6 (3.5-5.1) mmol/L Chloride 99 (98-107) mmol/L Carbon Dioxide 28 (22-30) mmol/L Anion Gap 9 mmol/L BUN 6 L (7-17) mg/dL Creatinine 0.49 L (0.52-1.04) mg/dL Est GFR (MDRD) Af Amer >60 (>60 ml/min/1.73 sqM) Est GFR (MDRD) Non-Af >60 (>60 ml/min/1.73 sqM) Glucose 335 H (74-99) mg/dL Calcium 9.4 (8.4-10.2) mg/dL Urine Color Urine Appearance (Clear) Urine pH (5.0-8.0) Ur Specific [place] (1.001-1.035) Urine Protein (Negative) Urine Glucose (UA) (Negative) Urine Ketones (Negative) Urine Blood (Negative) Urine Nitrite (Negative) Urine Bilirubin (Negative) Urine Urobilinogen (<2.0) mg/dL Ur Leukocyte Esterase (Negative) Urine HCG, Qual Not Detected (Not Detectd) 06/26/17 Range/Units 19:24 WBC (3.8-10.6) k/uL RBC (3.80-5.40) m/uL Hgb (11.4-16.0) gm/dL Hct (34.0-46.0) % MCV (80.0-100.0) fL MCH (25.0-35.0) pg MCHC (31.0-37.0) g/dL RDW (11.5-15.5) % Plt Count (150-450) k/uL Neutrophils % % Lymphocytes % % Monocytes % % Eosinophils % % Basophils % % Neutrophils # (1.3-7.7) k/uL Lymphocytes # (1.0-4.8) k/uL Monocytes # (0-1.0) k/uL Eosinophils # (0-0.7) k/uL Basophils # (0-0.2) k/uL Anisocytosis Microcytosis Sodium (137-145) mmol/L Potassium (3.5-5.1) mmol/L Chloride (98-107) mmol/L Carbon Dioxide (22-30) mmol/L Anion Gap mmol/L BUN (7-17) mg/dL Creatinine (0.52-1.04) mg/dL Est GFR (MDRD) Af Amer (>60 ml/min/1.73 sqM) Est GFR (MDRD) Non-Af (>60 ml/min/1.73 sqM) Glucose (74-99) mg/dL Calcium (8.4-10.2) mg/dL Urine Color Light Yellow Urine Appearance Clear (Clear) Urine pH 5.5 (5.0-8.0) Ur Specific [place] 1.019 (1.001-1.035) Urine Protein Negative (Negative) Urine Glucose (UA) 4+ H (Negative) Urine Ketones Negative (Negative) Urine Blood Negative (Negative) Urine Nitrite Negative (Negative) Urine Bilirubin Negative (Negative) Urine Urobilinogen <2.0 (<2.0) mg/dL Ur Leukocyte Esterase Negative (Negative) Urine HCG, Qual (Not Detectd) Disposition Clinical Impression: Dizziness Disposition: HOME SELF-CARE Condition: Stable Instructions: Dizziness (ED) Referrals: Rober Cantu MD [Primary Care Provider] - 1-2 days Time of Disposition: 20:15
[2017-06-26 20:35] VITALS: BP 128/66; PULSE 53; RESP 18; TEMP 97.4
== END 2017-06-26 20:35 | disposition home or self-care (01) ==
LOC: EC 16:59
DX: R42 Dizziness and giddiness (principal); R05 Cough; R09.89 Other specified symptoms and signs involving the circulatory and respiratory systems; E11.9 Type 2 diabetes mellitus without complications; Z91.013 Allergy to seafood; Z79.4 Long term (current) use of insulin
CPT/HCPCS: 36415; 71020; 80048; 81003; 81025; 85025; 93005; 99284

== ENCOUNTER 2017-08-21 17:45 | Emergency (ER) | payer OTHER ==
[2017-08-21 18:03] VITALS: BP 130/82; PULSE 82; RESP 16; TEMP 97.9
[2017-08-21] MEDS ORDERED: ORPHENADRINE 30 MG/ML 2 ML VIAL IM STA (18:36)
--- NOTE | 2017-08-21 18:41 | ED ---
Back Pain HPI - General Chief Complaint: Back Pain/Injury Stated Complaint: BACK AND RIGHT LEG PAIN Time Seen by Provider: 08/21/17 18:16 Source: patient, RN notes reviewed, old records reviewed Limitations: no limitations - History of Present Illness Initial Comments: Patient is a 32-year-old -[place] female presents with her sons chief complaint of back pain radiating down her right leg and right hip. She reports going on for a week. She even taking Motrin with little relief. She states that she can feel the pain shoot down her toes. She states it's worse with movement. Do I have the saddle in the seizures, urinary symptoms or changes in bowel habits.dPatient also reports that she needs to find a new primary care physician. Patient states she's been out of her insulin. She is requesting refill. - Related Data Home Medications Medication Instructions Recorded Confirmed INSULIN LISPRO (humaLOG) [humaLOG] 15 unit SQ AC-TID 10/09/14 08/21/17 Insulin Glargine [Lantus] 30 unit SQ HS 03/03/17 08/21/17 glipiZIDE [Glucotrol] 5 mg PO AC-BID 06/26/17 08/21/17 Previous Rx's Medication Instructions Recorded Cyclobenzaprine [Flexeril] 10 mg PO TID #15 tab 08/21/17 Insulin Glargine,Hum.rec.anlog 30 unit SQ HS #300 ml 08/21/17 [Lantus Solostar] traMADol HCl [Ultram] 50 mg PO Q6H PRN #15 tab 08/21/17 Allergies Allergy/AdvReac Type Severity Reaction Status Date / Time shellfish derived Allergy Anaphylaxis Verified 08/21/17 18:45 Review of Systems ROS Statement: Those systems with pertinent positive or pertinent negative responses have been documented in the HPI. ROS Other: All systems not noted in ROS Statement are negative. Constitutional: Denies: chills Eyes: Denies: eye pain ENT: Denies: ear pain Respiratory: Denies: cough, dyspnea Cardiovascular: Denies: chest pain Gastrointestinal: Denies: nausea, vomiting Genitourinary: Denies: urgency, dysuria Musculoskeletal: Reports: back pain Skin: Denies: rash Neurological: Denies: weakness Psychiatric: Denies: anxiety, depression Hematological/Lymphatic: Denies: easy bleeding Past Medical History Past Medical History: Diabetes Mellitus History of Any Multi-Drug Resistant Organisms: None Reported Past Surgical History: Section Additional Past Surgical History / Comment(s): x 2 Past Anesthesia/Blood Transfusion Reactions: No Reported Reaction Past Psychological History: No Psychological Hx Reported Smoking Status: Never smoker Past Alcohol Use History: None Reported Past Drug Use History: None Reported - Past Family History Father Family Medical History: Cancer, Diabetes Mellitus Additional Family Medical History / Comment(s): Diabetes also on mother's side; Heart disease General Exam - General Exam Comments Initial Comments: Well appearing 32 year old female. No distress. Limitations: no limitations General appearance: alert, in no apparent distress Head exam: Present: atraumatic, normocephalic, normal inspection Eye exam: Present: normal appearance, PERRL, EOMI. Absent: scleral icterus, conjunctival injection, periorbital swelling Respiratory exam: Present: normal lung sounds bilaterally. Absent: respiratory distress, wheezes, rales, rhonchi, stridor Cardiovascular Exam: Present: regular rate, normal rhythm, normal heart sounds. Absent: systolic murmur, diastolic murmur, rubs, gallop, clicks GI/Abdominal exam: Present: soft, normal bowel sounds. Absent: distended, tenderness, guarding, rebound, rigid Extremities exam: Present: normal inspection, full ROM, normal capillary refill , other (tenderness over right sciatic notch. Psotive straight leg test. ). Absent: tenderness, pedal edema, joint swelling, calf tenderness Back exam: Present: normal inspection, paraspinal tenderness (right lumbar paraspinal tenderness), vertebral tenderness Neurological exam: Present: alert, oriented X3, CN II-XII intact Course Vital Signs 08/21/17 18:00 Temperature 97.9 F Pulse Rate 82 Respiratory 16 Rate Blood Pressure 130/82 O2 Sat by Pulse 100 Oximetry Medical Decision Making - Medical Decision Making 32-year-old female presents today with one week of right sided back pain rating on her right leg sciatica. Positive straight leg test and tender for sciatic notch. Patient was given IM norflex and will be discharged with pain medicine and muscle relaxer's. Discussed taking Tylenol and Motrin as well. She also request a refill of her insulin. Patient will be given a perscription for insulin and in referrals to primary care provider. Disposition Clinical Impression: Right leg pain, Medication refill, Sciatica Disposition: HOME SELF-CARE Condition: Good Instructions: Acute Low Back Pain (ED), Medicine Refill (ED) Additional Instructions: Patient advised to take the muscle answers and pain medicine as prescribed. Recommended following up with primary care provider as well to establish primary care for medicine refills. Return to emergency department if any alarming signs or symptoms occur. Prescriptions: Cyclobenzaprine [Flexeril] 10 mg PO TID #15 tab Insulin Glargine,Hum.rec.anlog [Lantus Solostar] 30 unit SQ HS #300 ml traMADol HCl [Ultram] 50 mg PO Q6H PRN #15 tab PRN Reason: Pain Referrals: None,Stated [Primary Care Provider] - 1-2 days Korin Fletcher MD [REFERRING] - 1-2 days Olinda Blum MD [STAFF PHYSICIAN] - 1-2 days Time of Disposition: 18:37
--- NOTE | 2017-08-22 05:49 | CDI ---
Documentation Clarification OP Dear VALERIE Gallo: Please do addendum to ED report for HPI , Physical exam and MDM. Thank you, Selena De La Cruz Corporate Director If you have any question, Please contact rent control office manager at [phone] [facility]
== END 2017-08-21 18:46 | disposition home or self-care (01) ==
LOC: EC 17:45
DX: M54.31 Sciatica, right side (principal); E11.9 Type 2 diabetes mellitus without complications; Z76.0 Encounter for issue of repeat prescription; Z79.4 Long term (current) use of insulin; Z91.013 Allergy to seafood
CPT/HCPCS: 99283; 96372; J2360

== ENCOUNTER 2017-08-25 16:09 | Emergency (ER) | payer OTHER ==
[2017-08-25] MEDS ORDERED: ACETAMINOPHEN TAB 500 MG TAB PO STA (16:50)
--- NOTE | 2017-08-25 17:01 | ED ---
General Adult HPI - General Chief complaint: Upper Respiratory Infection Stated complaint: flu like symptoms-Body aches, headache Time Seen by Provider: 08/25/17 16:10 Source: patient, RN notes reviewed Mode of arrival: ambulatory Limitations: no limitations - History of Present Illness Initial comments: This is a 32-year-old female presents emergency Department complaining of fever for 3 days. Patient is complaining of a cough denies any sputum production. Patient denies being short of breath or if any difficulty breathing. Patient denies any chest pain or palpitations. Patient denies abdominal pain patient denies nausea vomiting diarrhea. Patient states she did not get the flu shot this year. Patient states she has a mild headache but nothing significant. Patient denies any numbness weakness. Patient denies any dizziness lightheadedness or near syncopal episode. - Related Data Home Medications Medication Instructions Recorded Confirmed INSULIN LISPRO (humaLOG) [humaLOG] 15 unit SQ AC-TID 10/09/14 08/25/17 Insulin Glargine [Lantus] 30 unit SQ HS 03/03/17 08/25/17 glipiZIDE [Glucotrol] 5 mg PO AC-BID 06/26/17 08/25/17 Ibuprofen [Motrin] 800 mg PO Q6HR PRN 08/25/17 08/25/17 Allergies Allergy/AdvReac Type Severity Reaction Status Date / Time shellfish derived Allergy Anaphylaxis Verified 08/25/17 17:07 Review of Systems ROS Statement: Those systems with pertinent positive or pertinent negative responses have been documented in the HPI. ROS Other: All systems not noted in ROS Statement are negative. Past Medical History Past Medical History: Diabetes Mellitus History of Any Multi-Drug Resistant Organisms: None Reported Past Surgical History: Section Additional Past Surgical History / Comment(s): x 2 Past Anesthesia/Blood Transfusion Reactions: No Reported Reaction Past Psychological History: No Psychological Hx Reported Smoking Status: Never smoker Past Alcohol Use History: None Reported Past Drug Use History: None Reported - Past Family History Father Family Medical History: Cancer, Diabetes Mellitus Additional Family Medical History / Comment(s): Diabetes also on mother's side; Heart disease General Exam - General Exam Comments Initial Comments: GENERAL: Patient is well-developed and well-nourished. Patient is nontoxic and well- hydrated and is in mild distress. ENT: Neck is soft and supple. No significant lymphadenopathy is noted. Oropharynx is clear. Moist mucous membranes. EYES: The sclera were anicteric and conjunctiva were pink and moist. Extraocular movements were intact and pupils were equal round and reactive to light. Eyelids were unremarkable. PULMONARY: Unlabored respirations. Good breath sounds bilaterally. No audible rales rhonchi or wheezing was noted. CARDIOVASCULAR: There is a regular rate and rhythm without any murmurs gallops or rubs. ABDOMEN: Soft and nontender with normal bowel sounds. SKIN: Skin is clear with no lesions or rashes and otherwise unremarkable. NEUROLOGIC: Patient is alert and oriented x3. Cranial nerves II through XII are grossly intact. Motor and sensory are also intact. Normal speech, volume and content. Symmetrical smile. MUSCULOSKELETAL: Normal extremities with adequate strength and full range of motion. LYMPHATICS: No significant lymphadenopathy is noted PSYCHIATRIC: Normal psychiatric evaluation. Limitations: no limitations Course Vital Signs 08/25/17 16:19 Temperature 101.8 F H Pulse Rate 124 H Respiratory 18 Rate Blood Pressure 119/82 O2 Sat by Pulse 98 Oximetry Medical Decision Making - Medical Decision Making Chest x-ray shows no acute abnormalities. Patient has influenza A. Patient is not to get Tamiflu secondary to the fact the patient had the symptoms for over 3 days - Lab Data Lab Results 08/25/17 Range/Units 16:25 Influenza Type A RNA Detected H (Not Detectd) Influenza Type B (PCR) Not Detected (Not Detectd) Disposition Clinical Impression: Influenza Disposition: HOME SELF-CARE Condition: Good Instructions: Influenza (ED) Additional Instructions: Patient should be taking Motrin and Tylenol to keep down her fever and continue to keep hydrated. Referrals: None,Stated [Primary Care Provider] - 1-2 days Time of Disposition: 18:05
--- NOTE | 2017-08-25 17:31 | XR ---
EXAMINATION TYPE: XR chest 2V DATE OF EXAM: 08/25/2017 COMPARISON: 06/26/2017 HISTORY: Short of breath TECHNIQUE: Frontal and lateral views of the chest are obtained. FINDINGS: Heart and mediastinum are normal. Lungs are clear. Diaphragm is normal. Bony thorax appear s normal. IMPRESSION: Normal chest. No change.
[2017-08-25] MEDS ORDERED: IBUPROFEN 600 MG TAB PO STA (18:17)
[2017-08-25 18:24] VITALS: BP 115/58; PULSE 113; RESP 16; TEMP 102
== END 2017-08-25 18:24 | disposition home or self-care (01) ==
LOC: EC 16:09
DX: J10.1 Influenza due to other identified influenza virus with other respiratory manifestations (principal); E11.9 Type 2 diabetes mellitus without complications; Z91.013 Allergy to seafood; Z79.4 Long term (current) use of insulin; Z79.84 Long term (current) use of oral hypoglycemic drugs
CPT/HCPCS: 71046; 87502; 99283

== ENCOUNTER 2017-08-27 13:07 | Emergency (ER) | payer OTHER ==
[2017-08-27] MEDS ORDERED: SODIUM CHLORIDE 0.9% 1,000 ML IV STA (13:47)
[2017-08-27] MEDS ORDERED: ACETAMINOPHEN TAB 500 MG TAB PO STA (13:47)
--- NOTE | 2017-08-27 13:50 | ED ---
General Adult HPI - General Chief complaint: Fever Stated complaint: Blood in Vomit Time Seen by Provider: 08/27/17 13:34 Source: patient, RN notes reviewed Mode of arrival: ambulatory Limitations: no limitations - History of Present Illness Initial comments: 32-year-old female presents for evaluation of fever, cough, and nausea vomiting. Patient was diagnosed with influenza 2 days ago. She has had symptoms for the past 6 days. She has persistent fevers which she is treating with 800 mg of Motrin at home. Despite fever control, she has significant myalgias, abdominal pain, nausea vomiting and diarrhea. Patient states she had worsening cough this morning which was productive of yellow sputum and was blood -tinged. She has been unable to maintain hydration at home. Patient's past medical history includes type 2 diabetes, no asthma or respiratory issues. - Related Data Home Medications Medication Instructions Recorded Confirmed INSULIN LISPRO (humaLOG) [humaLOG] 15 unit SQ AC-TID 10/09/14 08/27/17 Insulin Glargine [Lantus] 30 unit SQ HS 03/03/17 08/27/17 glipiZIDE [Glucotrol] 5 mg PO AC-BID 06/26/17 08/27/17 Ibuprofen [Motrin] 800 mg PO Q6HR PRN 08/25/17 08/27/17 Allergies Allergy/AdvReac Type Severity Reaction Status Date / Time shellfish derived Allergy Anaphylaxis Verified 08/27/17 13:28 Review of Systems ROS Statement: Those systems with pertinent positive or pertinent negative responses have been documented in the HPI. ROS Other: All systems not noted in ROS Statement are negative. Past Medical History Past Medical History: Diabetes Mellitus History of Any Multi-Drug Resistant Organisms: None Reported Past Surgical History: Section Additional Past Surgical History / Comment(s): x 2 Past Anesthesia/Blood Transfusion Reactions: No Reported Reaction Past Psychological History: No Psychological Hx Reported Smoking Status: Never smoker Past Alcohol Use History: None Reported Past Drug Use History: None Reported - Past Family History Father Family Medical History: Cancer, Diabetes Mellitus Additional Family Medical History / Comment(s): Diabetes also on mother's side; Heart disease General Exam Limitations: no limitations General appearance: alert, in no apparent distress Head exam: Present: atraumatic, normocephalic Eye exam: Present: normal appearance, PERRL, EOMI ENT exam: Present: mucous membranes dry. Absent: normal oropharynx (Erythema, no tonsillar swelling or exudate) Neck exam: Present: normal inspection. Absent: tenderness, meningismus Respiratory exam: Present: normal lung sounds bilaterally, rhonchi (Scattered rhonchi). Absent: respiratory distress, wheezes Cardiovascular Exam: Present: normal rhythm, tachycardia GI/Abdominal exam: Present: soft. Absent: distended, tenderness, guarding, rebound Extremities exam: Present: normal inspection, full ROM, normal capillary refill. Absent: pedal edema Neurological exam: Present: alert, oriented X3, CN II-XII intact. Absent: motor sensory deficit Psychiatric exam: Present: normal affect, normal mood Skin exam: Present: warm, dry, intact. Absent: cyanosis, diaphoretic Course Vital Signs 08/27/17 08/27/17 08/27/17 13:13 14:04 15:10 Temperature 101.0 F H 100.2 F H Pulse Rate 108 H 94 Respiratory 20 14 Rate Blood Pressure 117/84 107/65 O2 Sat by Pulse 99 97 Oximetry - Reevaluation(s) Reevaluation #1: 08/27/17 15:58 On reevaluation, vital signs remained stable, patient is feeling somewhat better. Medical Decision Making - Medical Decision Making 32-year-old female with diagnosis influenza presents with cough and nausea and vomiting as well as concern for dehydration. Patient does appear dehydrated on examination. IV was established laboratory studies are obtained. White blood cell count 3.1 likely secondary to influenza, hemoglobin 13.1 glucose is elevated at 325, patient does have history of diabetes. Anion gap is 14. Urinalysis negative for ketones, there is high specific gravity consistent with dehydration. Chest x-ray negative for focal pneumonia. Patient is given 2 L of IV hydration and Tylenol in the emergency department. On reevaluation she is feeling somewhat better. She will continue oral hydration at home. She will take Tylenol Motrin for myalgias, and fever. - Lab Data Result diagrams: 08/27/17 14:12 08/27/17 14:12 Lab Results 08/27/17 08/27/17 08/27/17 Range/Units 14:12 14:12 14:12 WBC 3.1 L (3.8-10.6) k/uL RBC 5.04 (3.80-5.40) m/uL Hgb 13.1 (11.4-16.0) gm/dL Hct 40.2 (34.0-46.0) % MCV 79.8 L (80.0-100.0) fL MCH 26.1 (25.0-35.0) pg MCHC 32.7 (31.0-37.0) g/dL RDW 14.3 (11.5-15.5) % Plt Count 233 (150-450) k/uL Neutrophils % (Manual) 24 % Band Neutrophils % 1 % Lymphocytes % (Manual) 66 % Monocytes % (Manual) 9 % Neutrophils # (Manual) 0.70 L (1.3-7.7) k/uL Lymphocytes # (Manual) 2.05 (1.0-4.8) k/uL Monocytes # (Manual) 0.28 (0-1.0) k/uL Nucleated RBCs 0 (0-0) /100 WBC Manual Slide Review Performed RBC Morphology Normal Sodium 138 (137-145) mmol/L Potassium 4.9 (3.5-5.1) mmol/L Chloride 94 L (98-107) mmol/L Carbon Dioxide 30 (22-30) mmol/L Anion Gap 14 mmol/L BUN 9 (7-17) mg/dL Creatinine 0.60 (0.52-1.04) mg/dL Est GFR (MDRD) Af Amer >60 (>60 ml/min/1.73 sqM) Est GFR (MDRD) Non-Af >60 (>60 ml/min/1.73 sqM) Glucose 325 H (74-99) mg/dL Plasma Lactic Acid Michael 1.3 (0.7-2.0) mmol/L Calcium 9.8 (8.4-10.2) mg/dL Total Bilirubin 0.4 (0.2-1.3) mg/dL AST 37 H (14-36) U/L ALT 25 (9-52) U/L Alkaline Phosphatase 121 (38-126) U/L Total Protein 8.7 H (6.3-8.2) g/dL Albumin 4.3 (3.5-5.0) g/dL Urine Color Urine Appearance (Clear) Urine pH (5.0-8.0) Ur Specific [place] (1.001-1.035) Urine Protein (Negative) Urine Glucose (UA) (Negative) Urine Ketones (Negative) Urine Blood (Negative) Urine Nitrite (Negative) Urine Bilirubin (Negative) Urine Urobilinogen (<2.0) mg/dL Ur Leukocyte Esterase (Negative) Urine RBC (0-5) /hpf Urine WBC (0-5) /hpf Ur Squamous Epith Cells (0-4) /hpf Urine Mucus (None) /hpf Urine HCG, Qual (Not Detectd) 08/27/17 08/27/17 Range/Units 14:12 14:12 WBC (3.8-10.6) k/uL RBC (3.80-5.40) m/uL Hgb (11.4-16.0) gm/dL Hct (34.0-46.0) % MCV (80.0-100.0) fL MCH (25.0-35.0) pg MCHC (31.0-37.0) g/dL RDW (11.5-15.5) % Plt Count (150-450) k/uL Neutrophils % (Manual) % Band Neutrophils % % Lymphocytes % (Manual) % Monocytes % (Manual) % Neutrophils # (Manual) (1.3-7.7) k/uL Lymphocytes # (Manual) (1.0-4.8) k/uL Monocytes # (Manual) (0-1.0) k/uL Nucleated RBCs (0-0) /100 WBC Manual Slide Review RBC Morphology Sodium (137-145) mmol/L Potassium (3.5-5.1) mmol/L Chloride (98-107) mmol/L Carbon Dioxide (22-30) mmol/L Anion Gap mmol/L BUN (7-17) mg/dL Creatinine (0.52-1.04) mg/dL Est GFR (MDRD) Af Amer (>60 ml/min/1.73 sqM) Est GFR (MDRD) Non-Af (>60 ml/min/1.73 sqM) Glucose (74-99) mg/dL Plasma Lactic Acid Michael (0.7-2.0) mmol/L Calcium (8.4-10.2) mg/dL Total Bilirubin (0.2-1.3) mg/dL AST (14-36) U/L ALT (9-52) U/L Alkaline Phosphatase (38-126) U/L Total Protein (6.3-8.2) g/dL Albumin (3.5-5.0) g/dL Urine Color Yellow Urine Appearance Clear (Clear) Urine pH 6.0 (5.0-8.0) Ur Specific [place] 1.037 H (1.001-1.035) Urine Protein 2+ H (Negative) Urine Glucose (UA) 4+ H (Negative) Urine Ketones Negative (Negative) Urine Blood Negative (Negative) Urine Nitrite Negative (Negative) Urine Bilirubin Negative (Negative) Urine Urobilinogen <2.0 (<2.0) mg/dL Ur Leukocyte Esterase Negative (Negative) Urine RBC 1 (0-5) /hpf Urine WBC 9 H (0-5) /hpf Ur Squamous Epith Cells 10 H (0-4) /hpf Urine Mucus Rare H (None) /hpf Urine HCG, Qual Not Detected (Not Detectd) Disposition Clinical Impression: Influenza, Dehydration Disposition: HOME SELF-CARE Condition: Good Instructions: Fever in Adults (ED), Dehydration (ED), Influenza (ED) Referrals: None,Stated [Primary Care Provider] - 1-2 days Skylar Calderon MD [STAFF PHYSICIAN] - 1-2 days Time of Disposition: 16:00
[2017-08-27 14:46] LABS: Appearance,Urine Clear (Clear); Bilirubin,Urine Negative (Negative); Blood,Urine Negative (Negative); Color,Urine Yellow; Glucose,Urine (UA) 4+ (Negative); Ketones,Urine Negative (Negative); Leukocyte Esterase,Urine Negative (Negative); Mucus,Urine Rare /hpf; Protein,Urine 2+ (Negative); RBC,Urine 1 /hpf (0-5); Specific Gravity,Urine 1.037 (1.001-1.035); Squamous Epithelial Cell,Urine 10 /hpf (0-4); Urobilinogen,Urine <2.0 mg/dL (<2.0); WBC,Urine 9 /hpf (0-5)
[2017-08-27 14:54] LABS: ALT 25 U/L (9-52); AST 37 U/L (14-36); Albumin 4.3 g/dL (3.5-5.0); Alkaline Phosphatase 121 U/L (38-126); Anion Gap 14 mmol/L; Blood Urea Nitrogen 9 mg/dL (7-17); Calcium 9.8 mg/dL (8.4-10.2); Carbon Dioxide 30 mmol/L (22-30); Chloride 94 mmol/L (98-107); Glucose 325 mg/dL (74-99); HCT 40.2 % (34.0-46.0); HGB 13.1 gm/dL (11.4-16.0); MCH 26.1 pg (25.0-35.0); MCHC 32.7 g/dL (31.0-37.0); MCV 79.8 fL (80.0-100.0); Mean Platelet Volume 7.9; Platelet Count 233 k/uL (150-450); RBC 5.04 m/uL (3.80-5.40); RDW 14.3 % (11.5-15.5); Sodium 138 mmol/L (137-145); Total Bilirubin 0.4 mg/dL (0.2-1.3); Total Protein 8.7 g/dL (6.3-8.2); WBC 3.1 k/uL (3.8-10.6)
[2017-08-27 14:56] LABS: Potassium 4.9 mmol/L (3.5-5.1)
--- NOTE | 2017-08-27 14:57 | XR ---
EXAMINATION TYPE: XR chest 2V DATE OF EXAM: 08/27/2017 COMPARISON: Prior chest x-ray 08/25/2017 HISTORY: Pain, cough and congestion TECHNIQUE: Frontal and lateral views of the chest are obtained. FINDINGS: There is no focal air space opacity, pleural effusion, or pneumothorax seen. The cardiac silhouette size is within normal limits. The osseous structures are intact. IMPRESSION: No acute cardiopulmonary process.
[2017-08-27 15:18] VITALS: PULSE 94
[2017-08-27 15:35] LABS: Band Neutrophils % 1 %; Lymphocytes # (M) 2.05 k/uL (1.0-4.8); Monocytes # (M) 0.28 k/uL (0-1.0); Neutrophils % (M) 24 %; Nucleated Red Blood Cells 0 /100 WBC (0-0); Total Cells Counted 100
[2017-08-27 16:33] VITALS: BP 115/87; RESP 18; TEMP 99
== END 2017-08-27 16:35 | disposition home or self-care (01) ==
LOC: EC 13:07
DX: J11.1 Influenza due to unidentified influenza virus with other respiratory manifestations (principal); E86.0 Dehydration; E11.65 Type 2 diabetes mellitus with hyperglycemia; R00.0 Tachycardia, unspecified; Z79.4 Long term (current) use of insulin; Z91.013 Allergy to seafood; Z83.3 Family history of diabetes mellitus
CPT/HCPCS: 36415; 71046; 80053; 81001; 81025; 83605; 85025; 96360; 96361; 99283

== ENCOUNTER 2017-11-27 17:49 | Emergency (ER) | payer OTHER ==
--- NOTE | 2017-11-27 18:56 | ED ---
General Adult HPI - General Chief complaint: Extremity Problem,Nontraumatic Stated complaint: Leg Pain, Feet swollen Time Seen by Provider: 11/27/17 18:02 Source: patient, RN notes reviewed Mode of arrival: ambulatory Limitations: no limitations - History of Present Illness Initial comments: 32-year-old female presents to the emergency department for a chief complaint of left leg pain 2 weeks. Patient denies any injuries. Patient states the pain starts in the back of her left leg and shoots down to her foot. Patient states the pain hurts more when she is standing or walking on it. Patient denies any history of blood clots. Patient states her feet are also swollen for the past few days. Patient denies any low back pain. Patient denies any bladder or bowel changes. Patient has no other complaints at this time including shortness of breath, chest pain, abdominal pain, nausea or vomiting, headache, or visual changes. - Related Data Home Medications Medication Instructions Recorded Confirmed INSULIN LISPRO (humaLOG) [humaLOG] 15 unit SQ AC-TID 10/09/14 11/27/17 Insulin Glargine [Lantus] 30 unit SQ HS 03/03/17 11/27/17 glipiZIDE [Glucotrol] 5 mg PO AC-BID 06/26/17 11/27/17 Multivitamins, Thera [Multivitamin 1 tab PO DAILY 11/27/17 11/27/17 (formulary)] Allergies Allergy/AdvReac Type Severity Reaction Status Date / Time shellfish derived Allergy Anaphylaxis Verified 11/27/17 18:40 Review of Systems ROS Statement: Those systems with pertinent positive or pertinent negative responses have been documented in the HPI. ROS Other: All systems not noted in ROS Statement are negative. Past Medical History Past Medical History: Diabetes Mellitus History of Any Multi-Drug Resistant Organisms: None Reported Past Surgical History: Section Additional Past Surgical History / Comment(s): x 2 Past Anesthesia/Blood Transfusion Reactions: No Reported Reaction Past Psychological History: No Psychological Hx Reported Smoking Status: Never smoker Past Alcohol Use History: None Reported Past Drug Use History: None Reported - Past Family History Father Family Medical History: Cancer, Diabetes Mellitus Additional Family Medical History / Comment(s): Diabetes also on mother's side; Heart disease General Exam Limitations: no limitations General appearance: alert, in no apparent distress Neck exam: Present: normal inspection. Absent: tenderness, meningismus, lymphadenopathy Respiratory exam: Present: normal lung sounds bilaterally. Absent: respiratory distress, wheezes, rales, rhonchi, stridor Cardiovascular Exam: Present: regular rate, normal rhythm, normal heart sounds. Absent: systolic murmur, diastolic murmur, rubs, gallop, clicks Extremities exam: Present: full ROM (Full range of motion of the left lower leg including left ankle left knee and left hip.), tenderness (Patient has tenderness to the posterior thigh as well as the posterior calf. No tenderness to the ankle knee or hip. No tenderness to the tib-fib or foot.), normal capillary refill (Refill less than 2 seconds and pedal pulse 2+.), calf tenderness (Patient does have mild left calf tenderness and positive Babak test. No redness, swelling, or increased warmth in the left calf. No tenderness in the right calf and a negative Babak test in the right calf.). Absent: pedal edema (No edema noted in lower legs bilaterally. No swelling.), joint swelling Course Vital Signs 11/27/17 17:54 Temperature 99.5 F Pulse Rate 89 Respiratory 16 Rate Blood Pressure 124/82 O2 Sat by Pulse 100 Oximetry Medical Decision Making - Medical Decision Making 32-year-old female presents to the emergency department for a chief complaint of left lower leg pain 2 weeks. Patient denies any injuries. Patient states the pain is worse when standing or walking. She states it starts in her left posterior thigh and shoots down the back of her leg to her foot. Patient denies any low back pain. Patient also complains of bilateral foot swelling. On exam, no edema or swelling is noted in bilateral legs. Patient does have some tenderness posterior left thigh and left calf. Positive Babak sign. No pain in the right lower extremity. Neurovascular intact in lower extremities bilaterally. US of the left lower extremity shows no evidence for DVT. No x- rays were ordered as patient doesn't have localized pain and has no injuries occurred. Patient will be discharged home with a follow-up to a primary care provider. Referral was given. Patient will continue Motrin and Tylenol for pain. She will elevate legs if she feels like there is swelling. She will return if she has any worsening symptoms or shortness of breath or increased swelling. Disposition Clinical Impression: Leg pain, left Disposition: HOME SELF-CARE Condition: Good Instructions: GORDON Therapy (ED), Leg Pain (ED) Additional Instructions: Please keep feet elevated. Stretch the left leg lightly. Take Motrin and Tylenol for pain. Follow up with primary care provider in one to 2 days. Return to the emergency department if you develop any worsening symptoms. Is patient prescribed a controlled substance at d/c from ED?: No Referrals: Bart Sue MD [STAFF PHYSICIAN] - 1-2 days Time of Disposition: 19:48
--- NOTE | 2017-11-27 19:31 | US ---
EXAMINATION TYPE: US venous doppler duplex LE LT DATE OF EXAM: 11/27/2017 6:50 PM COMPARISON: 01/02/2017 CLINICAL HISTORY: Pain. Left leg pain and swelling SIDE PERFORMED: Left TECHNIQUE: The lower extremity deep venous system is examined utilizing real time linear array sonog pamela with graded compression, doppler sonography and color-flow sonography. VESSELS IMAGED: External Iliac Vein (EIV) Common Femoral Vein Deep Femoral Vein Greater Saphenous Vein * Femoral Vein Popliteal Vein Small Saphenous Vein * Proximal Calf Veins (* superficial vessels) FINDINGS: Grayscale, color doppler, spectral doppler imaging performed of the deep veins of the lower extremities. There is normal flow, compressibility, vascular waveforms. IMPRESSION: NEGATIVE FOR DVT, LEFT LOWER EXTREMITY.
[2017-11-27 20:13] VITALS: BP 130/69; PULSE 69; RESP 18; TEMP 98.4
== END 2017-11-27 20:13 | disposition home or self-care (01) ==
LOC: EC 17:49
DX: M79.605 Pain in left leg (principal); M79.662 Pain in left lower leg; M79.89 Other specified soft tissue disorders; M79.672 Pain in left foot; M79.652 Pain in left thigh; E11.9 Type 2 diabetes mellitus without complications; Z79.4 Long term (current) use of insulin; Z91.013 Allergy to seafood
CPT/HCPCS: 99283

== ENCOUNTER 2017-12-30 17:25 | Emergency (ER) | payer OTHER ==
--- NOTE | 2017-12-30 19:18 | ED ---
Neuro HPI - General Chief Complaint: Neuro Symptoms/Deficit Stated Complaint: Rt side numb Time Seen by Provider: 12/30/17 18:58 Source: patient Mode of arrival: ambulatory Limitations: no limitations - History of Present Illness Is the patient presenting with stroke symptoms?: No Initial Comments: This is a 32-year-old female with a history of diabetes who presents emergent department for right arm tingling and pain associated with right foot tingling and pain. She states that the symptoms started 3 days ago and heparin persistent. She denies any focal weakness. Nothing on her face or abdomen. She states that she does not have any neck pain associated with this. No lower back pain. She states that nothing seems to make it better or worse. She was recently started on Lantus, glipizide, and Humalog because her hemoglobin A1c was 14. She denies any associated cough or shortness of breath. No chest pain. States that when it was persistent she's had come emergency department to get that evaluated. - Related Data Home Medications: Home Medications Medication Instructions Recorded Confirmed INSULIN LISPRO (humaLOG) [humaLOG] 15 unit SQ AC-TID 10/09/14 12/30/17 Insulin Glargine [Lantus] 30 unit SQ HS 03/03/17 12/30/17 glipiZIDE [Glucotrol] 5 mg PO AC-BID 06/26/17 12/30/17 Multivitamins, Thera [Multivitamin 1 tab PO DAILY 11/27/17 12/30/17 (formulary)] Allergies/Adverse Reactions: Allergies Allergy/AdvReac Type Severity Reaction Status Date / Time shellfish derived Allergy Anaphylaxis Verified 12/30/17 19:47 Review of Systems ROS Statement: Those systems with pertinent positive or pertinent negative responses have been documented in the HPI. ROS Other: All systems not noted in ROS Statement are negative. General Exam - General Exam Comments Initial Comments: Constitutional: Awake alert Appears comfortable Head: Normocephalic atraumatic Eyes: no conjunctival injection No scleral icterus EOMI Neck: No JVD Supple Heart: Regular rate rhythm normal S1-S2 no murmurs Lungs: Clear to auscultation bilaterally No wheezing No rales Abdomen: Soft nondistended nontender Extremities: Non edematous DP pulses intact Radial pulses intact Neuro: A&Ox3 No focal neurologic deficits, cranial nerves II through XII are grossly intact, 5 out of 5 strength in upper and lower extremities bilaterally, no ataxia with finger-nose and heel to ramirez testing, sensation is intact to light touch in all extremities although patient does report tingling in the right arm and right foot. Psych: Appropriate mood and affect Limitations: no limitations Stroke MDM - Lab Data Result diagrams: 12/30/17 19:16 12/30/17 19:16 Lab Results 12/30/17 12/30/17 12/30/17 Range/Units 19:16 19:16 19:16 WBC 3.1 L (3.8-10.6) k/uL RBC 4.51 (3.80-5.40) m/uL Hgb 11.5 (11.4-16.0) gm/dL Hct 35.7 (34.0-46.0) % MCV 79.2 L (80.0-100.0) fL MCH 25.4 (25.0-35.0) pg MCHC 32.1 (31.0-37.0) g/dL RDW 15.0 (11.5-15.5) % Plt Count 246 (150-450) k/uL Neutrophils % (Manual) 19 % Lymphocytes % (Manual) 74 % Monocytes % (Manual) 6 % Eosinophils % (Manual) 1 % Neutrophils # (Manual) 0.59 L (1.3-7.7) k/uL Lymphocytes # (Manual) 2.29 (1.0-4.8) k/uL Monocytes # (Manual) 0.19 (0-1.0) k/uL Eosinophils # (Manual) 0.03 (0-0.7) k/uL Nucleated RBCs 0 (0-0) /100 WBC Manual Slide Review Performed PT (9.0-12.0) sec INR (<1.2) APTT (22.0-30.0) sec Sodium 139 (137-145) mmol/L Potassium 4.1 (3.5-5.1) mmol/L Chloride 101 (98-107) mmol/L Carbon Dioxide 26 (22-30) mmol/L Anion Gap 12 mmol/L BUN 10 (7-17) mg/dL Creatinine 0.62 (0.52-1.04) mg/dL Est GFR (CKD-EPI)AfAm >90 (>60 ml/min/1.73 sqM) Est GFR (CKD-EPI)NonAf >90 (>60 ml/min/1.73 sqM) Glucose 242 H (74-99) mg/dL POC Glucose (mg/dL) (75-99) mg/dL POC Glu [employer] Examiner ID Calcium 9.5 (8.4-10.2) mg/dL Magnesium 1.6 (1.6-2.3) mg/dL Total Bilirubin 0.3 (0.2-1.3) mg/dL AST 33 (14-36) U/L ALT 39 (9-52) U/L Alkaline Phosphatase 96 (38-126) U/L Total Protein 7.8 (6.3-8.2) g/dL Albumin 4.1 (3.5-5.0) g/dL Urine Color Urine Appearance (Clear) Urine pH (5.0-8.0) Ur Specific [place] (1.001-1.035) Urine Protein (Negative) Urine Glucose (UA) (Negative) Urine Ketones (Negative) Urine Blood (Negative) Urine Nitrite (Negative) Urine Bilirubin (Negative) Urine Urobilinogen (<2.0) mg/dL Ur Leukocyte Esterase (Negative) Urine RBC (0-5) /hpf Urine WBC (0-5) /hpf Ur Squamous Epith Cells (0-4) /hpf Urine Mucus (None) /hpf Urine HCG, Qual Not Detected (Not Detectd) 12/30/17 12/30/17 12/30/17 Range/Units 19:16 19:16 19:28 WBC (3.8-10.6) k/uL RBC (3.80-5.40) m/uL Hgb (11.4-16.0) gm/dL Hct (34.0-46.0) % MCV (80.0-100.0) fL MCH (25.0-35.0) pg MCHC (31.0-37.0) g/dL RDW (11.5-15.5) % Plt Count (150-450) k/uL Neutrophils % (Manual) % Lymphocytes % (Manual) % Monocytes % (Manual) % Eosinophils % (Manual) % Neutrophils # (Manual) (1.3-7.7) k/uL Lymphocytes # (Manual) (1.0-4.8) k/uL Monocytes # (Manual) (0-1.0) k/uL Eosinophils # (Manual) (0-0.7) k/uL Nucleated RBCs (0-0) /100 WBC Manual Slide Review PT 10.8 (9.0-12.0) sec INR 1.1 (<1.2) APTT 24.3 (22.0-30.0) sec Sodium (137-145) mmol/L Potassium (3.5-5.1) mmol/L Chloride (98-107) mmol/L Carbon Dioxide (22-30) mmol/L Anion Gap mmol/L BUN (7-17) mg/dL Creatinine (0.52-1.04) mg/dL Est GFR (CKD-EPI)AfAm (>60 ml/min/1.73 sqM) Est GFR (CKD-EPI)NonAf (>60 ml/min/1.73 sqM) Glucose (74-99) mg/dL POC Glucose (mg/dL) 243 H (75-99) mg/dL POC Glu [employer] Examiner ID Brianna Orozco Calcium (8.4-10.2) mg/dL Magnesium (1.6-2.3) mg/dL Total Bilirubin (0.2-1.3) mg/dL AST (14-36) U/L ALT (9-52) U/L Alkaline Phosphatase (38-126) U/L Total Protein (6.3-8.2) g/dL Albumin (3.5-5.0) g/dL Urine Color Yellow Urine Appearance Cloudy H (Clear) Urine pH 5.5 (5.0-8.0) Ur Specific [place] 1.011 (1.001-1.035) Urine Protein Trace H (Negative) Urine Glucose (UA) 4+ H (Negative) Urine Ketones Negative (Negative) Urine Blood Moderate H (Negative) Urine Nitrite Negative (Negative) Urine Bilirubin Negative (Negative) Urine Urobilinogen <2.0 (<2.0) mg/dL Ur Leukocyte Esterase Small H (Negative) Urine RBC 2 (0-5) /hpf Urine WBC 5 (0-5) /hpf Ur Squamous Epith Cells 5 H (0-4) /hpf Urine Mucus Rare H (None) /hpf Urine HCG, Qual (Not Detectd) - Medical Decision Making This is a 32-year-old female came in for numbness and tingling with pain in her right arm and right foot. Computed tomography scan of the head and neck were unremarkable. Labs were unremarkable except for mild hyperglycemia. The patient is a 30 taking Lantus and Humalog at home. I told her that I felt that her symptoms may be related to her uncontrolled diabetes. She needs is close follow-up with her primary doctor to have further adjustment to her medications. Otherwise she is no evidence for DKA. EKG was normal. The patient felt improved after fluids. She will follow-up with her primary doctor as an outpatient. All questions were answered. Past Medical History Past Medical History: Diabetes Mellitus History of Any Multi-Drug Resistant Organisms: None Reported Past Surgical History: Section Additional Past Surgical History / Comment(s): x 2 Past Anesthesia/Blood Transfusion Reactions: No Reported Reaction Past Psychological History: No Psychological Hx Reported Smoking Status: Never smoker Past Alcohol Use History: None Reported Past Drug Use History: None Reported - Past Family History Father Family Medical History: Cancer, Diabetes Mellitus Additional Family Medical History / Comment(s): Diabetes also on mother's side; Heart disease Course Vital Signs 12/30/17 12/30/17 17:50 21:06 Temperature 98.6 F 97.0 F L Pulse Rate 69 73 Respiratory 16 18 Rate Blood Pressure 137/78 124/72 O2 Sat by Pulse 100 100 Oximetry - Reevaluation(s) Reevaluation #1: 12/30/17 20:10 EKG showing normal sinus rhythm with a rate of 64. There is no abnormal ST 7 changes or T-wave inversion. QTC is 431. Other intervals normal. No ectopy. Disposition Clinical Impression: Paresthesias Disposition: HOME SELF-CARE Condition: Stable Instructions: Paresthesia (ED) Is patient prescribed a controlled substance at d/c from ED?: No Referrals: Korin Fletcher MD [Primary Care Provider] - 1-2 days
[2017-12-30] MEDS ORDERED: SODIUM CHLORIDE 0.9% 1,000 ML IV ONE (19:19)
[2017-12-30 19:31] LABS: HCT 35.7 % (34.0-46.0); HGB 11.5 gm/dL (11.4-16.0); MCH 25.4 pg (25.0-35.0); MCHC 32.1 g/dL (31.0-37.0); MCV 79.2 fL (80.0-100.0); Mean Platelet Volume 6.7; Platelet Count 246 k/uL (150-450); RBC 4.51 m/uL (3.80-5.40); WBC 3.1 k/uL (3.8-10.6)
[2017-12-30 19:32] LABS: Glucose,Whole Blood 243 mg/dL (75-99)
[2017-12-30 19:40] LABS: Appearance,Urine Cloudy (Clear); Bilirubin,Urine Negative (Negative); Blood,Urine Moderate (Negative); Color,Urine Yellow; Glucose,Urine (UA) 4+ (Negative); Ketones,Urine Negative (Negative); Leukocyte Esterase,Urine Small (Negative); Mucus,Urine Rare /hpf; Nitrite,Urine Negative (Negative); PH, Urine 5.5 (5.0-8.0); Protein,Urine Trace (Negative); RBC,Urine 2 /hpf (0-5); Specific Gravity,Urine 1.011 (1.001-1.035); Squamous Epithelial Cell,Urine 5 /hpf (0-4); Urobilinogen,Urine <2.0 mg/dL (<2.0); WBC,Urine 5 /hpf (0-5)
[2017-12-30 19:41] LABS: ALT 39 U/L (9-52); AST 33 U/L (14-36); Albumin 4.1 g/dL (3.5-5.0); Alkaline Phosphatase 96 U/L (38-126); Anion Gap 12 mmol/L; Blood Urea Nitrogen 10 mg/dL (7-17); Calcium 9.5 mg/dL (8.4-10.2); Carbon Dioxide 26 mmol/L (22-30); Chloride 101 mmol/L (98-107); Glucose 242 mg/dL (74-99); Magnesium 1.6 mg/dL (1.6-2.3); Potassium 4.1 mmol/L (3.5-5.1); Sodium 139 mmol/L (137-145); Total Bilirubin 0.3 mg/dL (0.2-1.3); Total Protein 7.8 g/dL (6.3-8.2)
[2017-12-30 19:47] LABS: INR 1.1 (<1.2); Partial Thromboplastin Time 24.3 sec (22.0-30.0); Prothrombin Time 10.8 sec (9.0-12.0)
[2017-12-30 20:25] LABS: Eosinophils # (M) 0.03 k/uL (0-0.7); Lymphocytes # (M) 2.29 k/uL (1.0-4.8); Monocytes # (M) 0.19 k/uL (0-1.0); Neutrophils # (M) 0.59 k/uL (1.3-7.7); Neutrophils % (M) 19 %; Nucleated Red Blood Cells 0 /100 WBC (0-0); Total Cells Counted 100
--- NOTE | 2017-12-30 20:31 | CT ---
EXAMINATION TYPE: CT brain nikolayine wo con DATE OF EXAM: 12/30/2017 COMPARISON: NONE HISTORY: c/o weakness, dizziness, right arm numbness CT DLP: 1426.9 mGycm Automated exposure control for dose reduction was used. TECHNIQUE: CT scan of the head and cervical spine are performed without contrast. FINDINGS: Ventricles and sulci appear normal. There is no mass effect nor midline shift. There is n o sign of intracranial hemorrhage. There is bilateral punctate parotid gland calcification. There is mild straightening of the cervical vertebra. This spaces are normal. Posterior elements are intact. The facet joints are intact. There is no evidence of a fracture. IMPRESSION: Negative CT scan of the brain. Parotid calcification consistent with old inflammatory disease. Negative CT scan of the cervical spine.
[2017-12-30 21:07] VITALS: BP 124/72; PULSE 73; RESP 18; TEMP 97
== END 2017-12-30 21:07 | disposition home or self-care (01) ==
LOC: EC 17:25
DX: R20.2 Paresthesia of skin (principal); E11.9 Type 2 diabetes mellitus without complications; Z79.84 Long term (current) use of oral hypoglycemic drugs; Z91.013 Allergy to seafood
CPT/HCPCS: 36415; 70450; 72125; 80053; 81001; 81025; 83735; 85025; 85610; 85730; 93005; 96360; 99284

== ENCOUNTER → 2017-12-30 | Outpatient (CLI) | payer OTHER ==
--- NOTE | 2017-12-30 09:44 | US ---
EXAMINATION TYPE: US liver DATE OF EXAM: 12/30/2017 COMPARISON: NONE CLINICAL HISTORY: R94.5 ABN LIVER FUNCTIONS. Elevated liver enzymes EXAM MEASUREMENTS: Liver Length: 16.1 cm Gallbladder Wall: 0.3 cm CBD: 0.3 cm Right Kidney: 11.1 x 4.2 x 5.4 cm Pancreas: Tail obscured by overlying bowel gas Liver: appears wnl Gallbladder: no evidence of stones Evidence for sonographic Schneider's sign: no CBD: wnl Right Kidney: no evidence of hydronephrosis or mass IMPRESSION: No sonographic sequela of hepatocellular disease despite the abnormal liver enzymes. No c holelithiasis or sonographic evidence of acute cholecystitis.
== END | disposition home or self-care (01) ==
LOC: RADUSWWP 06:50
PROVIDERS: ATTEND Internal Medicine
DX: R94.5 Abnormal results of liver function studies (principal)
CPT/HCPCS: 76705

== ENCOUNTER 2018-03-29 12:07 | Emergency (ER) | payer OTHER ==
[2018-03-29 12:17] VITALS: TEMP 98.2
[2018-03-29 12:23] LABS: Glucose,Whole Blood 395 mg/dL (75-99)
[2018-03-29] MEDS ORDERED: SODIUM CHLORIDE 0.9% 1,000 ML IV STA (12:43)
[2018-03-29] MEDS ORDERED: KETOROLAC 30 MG/ML 1 ML VIAL IVP STA (12:44)
--- NOTE | 2018-03-29 12:47 | ED ---
Neuro HPI - General Chief Complaint: Neuro Symptoms/Deficit Stated Complaint: Light headed, arm numbness Time Seen by Provider: 03/29/18 12:30 Source: patient, RN notes reviewed Mode of arrival: wheelchair Limitations: no limitations - History of Present Illness Is the patient presenting with stroke symptoms?: No Initial Comments: This is a 33-year-old female history type 2 diabetes who states she was in [employer] when she started developing numbness to left forearm and some pain to the right arm area she states she had just gotten done clapping during saw as well as occurred. She states she still has symptoms of somewhat better. She denies any head neck or back pain as well as vomiting sweats she has of a family history of stroke and heart attack in early age with respect to one of her sisters. Other complaints at this time - Related Data Home Medications: Home Medications Medication Instructions Recorded Confirmed INSULIN LISPRO (humaLOG) [humaLOG] 15 unit SQ AC-TID 10/09/14 03/29/18 glipiZIDE [Glucotrol] 5 mg PO AC-BID 06/26/17 03/29/18 Insulin Glargine,Hum.rec.anlog 30 unit SQ HS 03/29/18 03/29/18 [Basaglar Kwikpen U-100] Previous Rx's Medication Instructions Recorded Ibuprofen [Motrin] 600 mg PO Q6HR PRN #20 tab 03/29/18 Allergies/Adverse Reactions: Allergies Allergy/AdvReac Type Severity Reaction Status Date / Time shellfish derived Allergy Anaphylaxis Verified 03/29/18 13:02 Review of Systems ROS Statement: Those systems with pertinent positive or pertinent negative responses have been documented in the HPI. ROS Other: All systems not noted in ROS Statement are negative. General Exam - General Exam Comments Initial Comments: This is a well-developed well-nourished awake alert oriented 3 female Limitations: no limitations General appearance: alert, in no apparent distress Head exam: Present: atraumatic, normocephalic, normal inspection Eye exam: Present: normal appearance, PERRL, EOMI. Absent: scleral icterus, conjunctival injection, periorbital swelling ENT exam: Present: normal exam, mucous membranes moist Neck exam: Present: normal inspection. Absent: tenderness, meningismus, lymphadenopathy Respiratory exam: Present: normal lung sounds bilaterally. Absent: respiratory distress, wheezes, rales, rhonchi, stridor Cardiovascular Exam: Present: regular rate, normal rhythm, normal heart sounds. Absent: systolic murmur, diastolic murmur, rubs, gallop, clicks GI/Abdominal exam: Present: soft, normal bowel sounds. Absent: distended, tenderness, guarding, rebound, rigid Extremities exam: Present: normal inspection, full ROM, normal capillary refill , other (Some numbness to light touch over a very small region perhaps 2.5 centimeters square the left lateral forearm). Absent: tenderness, pedal edema, joint swelling, calf tenderness Back exam: Present: normal inspection Neurological exam: Present: alert, oriented X3, CN II-XII intact Psychiatric exam: Present: normal affect, normal mood Skin exam: Present: warm, dry, intact, normal color. Absent: rash Stroke MDM - Lab Data Result diagrams: 03/29/18 13:15 03/29/18 13:15 Lab Results 03/29/18 03/29/18 03/29/18 Range/Units 12:22 13:15 13:15 WBC 3.3 L (3.8-10.6) k/uL RBC 4.68 (3.80-5.40) m/uL Hgb 12.1 (11.4-16.0) gm/dL Hct 38.7 (34.0-46.0) % MCV 82.7 (80.0-100.0) fL MCH 25.9 (25.0-35.0) pg MCHC 31.3 (31.0-37.0) g/dL RDW 14.3 (11.5-15.5) % Plt Count 253 (150-450) k/uL Neutrophils % 41 % Lymphocytes % 50 % Monocytes % 4 % Eosinophils % 1 % Basophils % 1 % Neutrophils # 1.4 (1.3-7.7) k/uL Lymphocytes # 1.7 (1.0-4.8) k/uL Monocytes # 0.1 (0-1.0) k/uL Eosinophils # 0.0 (0-0.7) k/uL Basophils # 0.0 (0-0.2) k/uL PT (9.0-12.0) sec INR (<1.2) APTT (22.0-30.0) sec Sodium (137-145) mmol/L Potassium (3.5-5.1) mmol/L Chloride (98-107) mmol/L Carbon Dioxide (22-30) mmol/L Anion Gap mmol/L BUN (7-17) mg/dL Creatinine (0.52-1.04) mg/dL Est GFR (CKD-EPI)AfAm (>60 ml/min/1.73 sqM) Est GFR (CKD-EPI)NonAf (>60 ml/min/1.73 sqM) Glucose (74-99) mg/dL POC Glucose (mg/dL) 395 H (75-99) mg/dL POC Glu Pattern Repair Person ID Calcium (8.4-10.2) mg/dL Magnesium (1.6-2.3) mg/dL Total Bilirubin (0.2-1.3) mg/dL AST (14-36) U/L ALT (9-52) U/L Alkaline Phosphatase (38-126) U/L Total Creatine Kinase 164 H (30-135) U/L CK-MB (CK-2) 2.3 (0.0-2.4) ng/mL CK-MB (CK-2) Rel Index 1.4 Troponin I <0.012 (0.000-0.034) ng/mL Total Protein (6.3-8.2) g/dL Albumin (3.5-5.0) g/dL 03/29/18 03/29/18 Range/Units 13:15 13:15 WBC (3.8-10.6) k/uL RBC (3.80-5.40) m/uL Hgb (11.4-16.0) gm/dL Hct (34.0-46.0) % MCV (80.0-100.0) fL MCH (25.0-35.0) pg MCHC (31.0-37.0) g/dL RDW (11.5-15.5) % Plt Count (150-450) k/uL Neutrophils % % Lymphocytes % % Monocytes % % Eosinophils % % Basophils % % Neutrophils # (1.3-7.7) k/uL Lymphocytes # (1.0-4.8) k/uL Monocytes # (0-1.0) k/uL Eosinophils # (0-0.7) k/uL Basophils # (0-0.2) k/uL PT 10.3 (9.0-12.0) sec INR 1.1 (<1.2) APTT 23.0 (22.0-30.0) sec Sodium 138 (137-145) mmol/L Potassium 4.9 (3.5-5.1) mmol/L Chloride 102 (98-107) mmol/L Carbon Dioxide 26 (22-30) mmol/L Anion Gap 10 mmol/L BUN 8 (7-17) mg/dL Creatinine 0.48 L (0.52-1.04) mg/dL Est GFR (CKD-EPI)AfAm >90 (>60 ml/min/1.73 sqM) Est GFR (CKD-EPI)NonAf >90 (>60 ml/min/1.73 sqM) Glucose 361 H (74-99) mg/dL POC Glucose (mg/dL) (75-99) mg/dL POC Glu Pattern Repair Person ID Calcium 9.5 (8.4-10.2) mg/dL Magnesium 1.6 (1.6-2.3) mg/dL Total Bilirubin 0.5 (0.2-1.3) mg/dL AST 30 (14-36) U/L ALT 34 (9-52) U/L Alkaline Phosphatase 87 (38-126) U/L Total Creatine Kinase (30-135) U/L CK-MB (CK-2) (0.0-2.4) ng/mL CK-MB (CK-2) Rel Index Troponin I (0.000-0.034) ng/mL Total Protein 9.1 H (6.3-8.2) g/dL Albumin 4.4 (3.5-5.0) g/dL - NIH Stroke Scale 1a. Level of Consciousness: (0) alert 1b. LOC Questions: (0) answers correctly 1c. LOC Commands: (0) performs tasks correctly 2. Best Gaze: (0) normal 3. Visual: (0) no visual loss 4. Facial Palsy: (0) normal symmetrical movement 5a. Motor Arm Left: (0) no drift 5b. Motor Arm Right: (0) no drift 6a. Motor Leg Left: (0) no drift 6b. Motor Leg Right: (0) no drift 7. Limb Ataxia: (0) absent 8. Sensory: (0) normal 9. Best Language: (0) no aphasia 10. Dysarthria: (0) normal 11. Extinction/Inattention: (0) no abnormality - Medical Decision Making I did review the imaging and report no acute findings. Patient's symptoms have resolved she feels improved after IV Toradol. The presentation is consistent with a radicular etiology. IV fluids informed of the elevated blood sugar she will be discharged - EKG Data -: EKG Interpreted by Me EKG shows normal: sinus rhythm, axis, intervals, QRS complexes, ST-T waves Rate: normal (Normal sinus rhythm with sinus arrhythmia the rate was 69. A 168 QRS duration 74 QT since QTC 386/413) Past Medical History Past Medical History: Diabetes Mellitus History of Any Multi-Drug Resistant Organisms: None Reported Past Surgical History: Section Additional Past Surgical History / Comment(s): x 2 Past Anesthesia/Blood Transfusion Reactions: No Reported Reaction Past Psychological History: No Psychological Hx Reported Smoking Status: Never smoker Past Alcohol Use History: None Reported Past Drug Use History: None Reported - Past Family History Father Family Medical History: Cancer, Diabetes Mellitus Additional Family Medical History / Comment(s): Diabetes also on mother's side; Heart disease Course Vital Signs 03/29/18 12:14 Temperature 98.2 F Pulse Rate 75 Respiratory 16 Rate Blood Pressure 135/76 O2 Sat by Pulse 99 Oximetry Disposition Clinical Impression: Cervical radiculopathy, Diabetes Disposition: HOME SELF-CARE Condition: Good Instructions: Cervical Radiculopathy (ED) Prescriptions: Ibuprofen [Motrin] 600 mg PO Q6HR PRN #20 tab PRN Reason: Pain Is patient prescribed a controlled substance at d/c from ED?: No Referrals: Korin Fletcher MD [Primary Care Provider] - 1-2 days
[2018-03-29 13:46] LABS: Basophils % (A) 1 %; Eosinophils % (A) 1 %; HCT 38.7 % (34.0-46.0); HGB 12.1 gm/dL (11.4-16.0); Lymphocytes # (A) 1.7 k/uL (1.0-4.8); Lymphocytes % (A) 50 %; MCH 25.9 pg (25.0-35.0); MCHC 31.3 g/dL (31.0-37.0); MCV 82.7 fL (80.0-100.0); Mean Platelet Volume 6.8; Monocytes # (A) 0.1 k/uL (0-1.0); Monocytes % (A) 4 %; Neutrophils # (A) 1.4 k/uL (1.3-7.7); Neutrophils % (A) 41 %; Platelet Count 253 k/uL (150-450); RBC 4.68 m/uL (3.80-5.40); RDW 14.3 % (11.5-15.5); WBC 3.3 k/uL (3.8-10.6)
--- NOTE | 2018-03-29 13:55 | XR ---
EXAMINATION TYPE: XR chest 2V DATE OF EXAM: 03/29/2018 HISTORY: altered mental status. REFERENCE: Previous study dated 08/27/2017. FINDINGS: The lungs remain clear. Pleural space are clear. The heart is not enlarged. IMPRESSION: NORMAL CHEST.
[2018-03-29 13:56] LABS: Albumin 4.4 g/dL (3.5-5.0); Anion Gap 10 mmol/L; Blood Urea Nitrogen 8 mg/dL (7-17); Calcium 9.5 mg/dL (8.4-10.2); Carbon Dioxide 26 mmol/L (22-30); Chloride 102 mmol/L (98-107); Glucose 361 mg/dL (74-99); Magnesium 1.6 mg/dL (1.6-2.3); Potassium 4.9 mmol/L (3.5-5.1); Sodium 138 mmol/L (137-145); Total Bilirubin 0.5 mg/dL (0.2-1.3); Total Protein 9.1 g/dL (6.3-8.2)
[2018-03-29 13:57] LABS: ALT 34 U/L (9-52); AST 30 U/L (14-36); Alkaline Phosphatase 87 U/L (38-126)
[2018-03-29 14:07] LABS: Creatine Kinase 164 U/L (30-135)
[2018-03-29 14:14] LABS: INR 1.1 (<1.2); Prothrombin Time 10.3 sec (9.0-12.0)
[2018-03-29 14:21] LABS: Creatine Kinase MB 2.3 ng/mL (0.0-2.4); Troponin I <0.012 ng/mL (0.000-0.034)
[2018-03-29] MEDS ORDERED: SODIUM CHLORIDE 0.9% 500 ML IV STA (14:30)
[2018-03-29 15:13] VITALS: BP 124/77; PULSE 69; RESP 18
== END 2018-03-29 15:13 | disposition home or self-care (01) ==
LOC: EC 12:07
DX: M54.12 Radiculopathy, cervical region (principal); E11.9 Type 2 diabetes mellitus without complications; Z79.4 Long term (current) use of insulin; Z91.013 Allergy to seafood
CPT/HCPCS: 36415; 93005; 80053; 82550; 82553; 83735; 84484; 85025; 85610; 85730; 71046; 99284; 96374; 96361 ×2; J1885

== ENCOUNTER 2018-04-15 16:12 | Emergency (ER) | payer OTHER ==
[2018-04-15 16:30] VITALS: TEMP 98.6
[2018-04-15] MEDS ORDERED: diphenhydrAMINE 50 MG/ML 1 ML VIAL IVP STA (18:18)
[2018-04-15] MEDS ORDERED: METOCLOPRAMIDE 5 MG/ML 2 ML VIAL IVP STA (18:18)
[2018-04-15] MEDS ORDERED: SODIUM CHLORIDE 0.9% 1,000 ML IV STA (18:18)
[2018-04-15] MEDS ORDERED: KETOROLAC 30 MG/ML 1 ML VIAL IVP STA (18:18)
--- NOTE | 2018-04-15 18:18 | ED ---
Abdominal Pain HPI - General Chief Complaint: Abdominal Pain Stated Complaint: Back pain & cramping Time Seen by Provider: 04/15/18 17:55 Source: patient, RN notes reviewed, old records reviewed Mode of arrival: ambulatory Limitations: no limitations - History of Present Illness Initial Comments: Patient is a 32-year-old female presents emergency department today with migraine headache and complaining of back. Past 2 weeks. Patient states that she had a headache for the past day. She reports that she's had no strain or falls to cause her back pain. Patient states that she's had no nausea or vomiting or complaints of abdominal pain.Patient denies any recent fever, chills , shortness of breath, chest pain, back pain, abdominal pain, nausea vomiting, numbness or tingling, dysuria or hematuria, constipation or diarrhea, headaches or visual changes, or any other current symptoms - Related Data Home Medications Medication Instructions Recorded Confirmed INSULIN LISPRO (humaLOG) [humaLOG] 15 unit SQ AC-TID 10/09/14 04/15/18 glipiZIDE [Glucotrol] 5 mg PO AC-BID 06/26/17 04/15/18 Insulin Glargine,Hum.rec.anlog 30 unit SQ HS 03/29/18 04/15/18 [Basaglar Kwikpen U-100] Previous Rx's Medication Instructions Recorded Cyclobenzaprine [Flexeril] 10 mg PO TID #12 tab 04/15/18 Allergies Allergy/AdvReac Type Severity Reaction Status Date / Time shellfish derived Allergy Anaphylaxis Verified 04/15/18 18:18 Review of Systems ROS Statement: Those systems with pertinent positive or pertinent negative responses have been documented in the HPI. ROS Other: All systems not noted in ROS Statement are negative. Past Medical History Past Medical History: Diabetes Mellitus History of Any Multi-Drug Resistant Organisms: None Reported Past Surgical History: Section Additional Past Surgical History / Comment(s): x 2 Past Anesthesia/Blood Transfusion Reactions: No Reported Reaction Past Psychological History: No Psychological Hx Reported Smoking Status: Never smoker Past Alcohol Use History: None Reported Past Drug Use History: None Reported - Past Family History Father Family Medical History: Cancer, Diabetes Mellitus Additional Family Medical History / Comment(s): Diabetes also on mother's side; Heart disease General Exam - General Exam Comments Initial Comments: This Patient is a 32-year-old female. Alert and oriented. Patient appears in no acute distress. Limitations: no limitations General appearance: alert, in no apparent distress Head exam: Present: atraumatic, normocephalic, normal inspection Eye exam: Present: normal appearance, PERRL, EOMI, other (Is photophobic showing her eyes due to migraine.). Absent: scleral icterus, conjunctival injection, periorbital swelling ENT exam: Present: normal exam, mucous membranes moist Neck exam: Present: normal inspection. Absent: tenderness, meningismus, lymphadenopathy Respiratory exam: Present: normal lung sounds bilaterally. Absent: respiratory distress, wheezes, rales, rhonchi, stridor Cardiovascular Exam: Present: regular rate, normal rhythm, normal heart sounds. Absent: systolic murmur, diastolic murmur, rubs, gallop, clicks GI/Abdominal exam: Present: soft, normal bowel sounds. Absent: distended, tenderness, guarding, rebound, rigid Extremities exam: Present: normal inspection, full ROM, normal capillary refill. Absent: tenderness, pedal edema, joint swelling, calf tenderness Back exam: Present: normal inspection Neurological exam: Present: alert, oriented X3, CN II-XII intact Psychiatric exam: Present: normal affect, normal mood Course Vital Signs 04/15/18 04/15/18 16:28 18:45 Temperature 98.6 F Pulse Rate 83 75 Respiratory 16 18 Rate Blood Pressure 129/81 112/84 O2 Sat by Pulse 97 99 Oximetry Medical Decision Making - Medical Decision Making 32-year-old female presents return today with headache and lower back pain. Headache started 2 days ago and complains lower back pain for the past 2 weeks. No trauma or falls. She states it feels lower back cramping. At this time she is no radiculopathy symptoms. Normal pulses and sensations distally. Patient labwork was obtained. Normal urinalysis, kidney function. is diabetic. Elevated blood sugar 260. She does have glucose in her urine. . Patient does have a low white blood cell count which she reports is chronic. I did discuss that she does feel better after migraine cocktail of Toradol and Reglan Benadryl. Discussed using muscle relaxers for her lower back pain as well. Patient understands treatment plan will comply. Return parameters were discussed. - Lab Data Result diagrams: 04/15/18 18:20 04/15/18 18:20 Lab Results 04/15/18 04/15/18 04/15/18 Range/Units 18:20 18:20 18:20 WBC 2.7 L (3.8-10.6) k/uL RBC 4.61 (3.80-5.40) m/uL Hgb 12.1 (11.4-16.0) gm/dL Hct 38.3 (34.0-46.0) % MCV 83.1 (80.0-100.0) fL MCH 26.3 (25.0-35.0) pg MCHC 31.7 (31.0-37.0) g/dL RDW 14.5 (11.5-15.5) % Plt Count 234 (150-450) k/uL Neutrophils % 43 % Lymphocytes % 46 % Monocytes % 6 % Eosinophils % 1 % Basophils % 0 % Neutrophils # 1.2 L (1.3-7.7) k/uL Lymphocytes # 1.2 (1.0-4.8) k/uL Monocytes # 0.2 (0-1.0) k/uL Eosinophils # 0.0 (0-0.7) k/uL Basophils # 0.0 (0-0.2) k/uL Sodium 139 (137-145) mmol/L Potassium 4.2 (3.5-5.1) mmol/L Chloride 101 (98-107) mmol/L Carbon Dioxide 29 (22-30) mmol/L Anion Gap 9 mmol/L BUN 7 (7-17) mg/dL Creatinine 0.47 L (0.52-1.04) mg/dL Est GFR (CKD-EPI)AfAm >90 (>60 ml/min/1.73 sqM) Est GFR (CKD-EPI)NonAf >90 (>60 ml/min/1.73 sqM) Glucose 237 H (74-99) mg/dL Calcium 9.6 (8.4-10.2) mg/dL Total Bilirubin 0.3 (0.2-1.3) mg/dL AST 44 H (14-36) U/L ALT 57 H (9-52) U/L Alkaline Phosphatase 129 H (38-126) U/L Total Protein 8.2 (6.3-8.2) g/dL Albumin 3.9 (3.5-5.0) g/dL Amylase 57 (30-110) U/L Lipase 35 (23-300) U/L Urine Color Urine Appearance (Clear) Urine pH (5.0-8.0) Ur Specific [place] (1.001-1.035) Urine Protein (Negative) Urine Glucose (UA) (Negative) Urine Ketones (Negative) Urine Blood (Negative) Urine Nitrite (Negative) Urine Bilirubin (Negative) Urine Urobilinogen (<2.0) mg/dL Ur Leukocyte Esterase (Negative) Urine RBC (0-5) /hpf Urine WBC (0-5) /hpf Ur Squamous Epith Cells (0-4) /hpf Urine Bacteria (None) /hpf Urine Mucus (None) /hpf Urine HCG, Qual Not Detected (Not Detectd) 04/15/18 Range/Units 18:20 WBC (3.8-10.6) k/uL RBC (3.80-5.40) m/uL Hgb (11.4-16.0) gm/dL Hct (34.0-46.0) % MCV (80.0-100.0) fL MCH (25.0-35.0) pg MCHC (31.0-37.0) g/dL RDW (11.5-15.5) % Plt Count (150-450) k/uL Neutrophils % % Lymphocytes % % Monocytes % % Eosinophils % % Basophils % % Neutrophils # (1.3-7.7) k/uL Lymphocytes # (1.0-4.8) k/uL Monocytes # (0-1.0) k/uL Eosinophils # (0-0.7) k/uL Basophils # (0-0.2) k/uL Sodium (137-145) mmol/L Potassium (3.5-5.1) mmol/L Chloride (98-107) mmol/L Carbon Dioxide (22-30) mmol/L Anion Gap mmol/L BUN (7-17) mg/dL Creatinine (0.52-1.04) mg/dL Est GFR (CKD-EPI)AfAm (>60 ml/min/1.73 sqM) Est GFR (CKD-EPI)NonAf (>60 ml/min/1.73 sqM) Glucose (74-99) mg/dL Calcium (8.4-10.2) mg/dL Total Bilirubin (0.2-1.3) mg/dL AST (14-36) U/L ALT (9-52) U/L Alkaline Phosphatase (38-126) U/L Total Protein (6.3-8.2) g/dL Albumin (3.5-5.0) g/dL Amylase (30-110) U/L Lipase (23-300) U/L Urine Color Yellow Urine Appearance Cloudy H (Clear) Urine pH 6.0 (5.0-8.0) Ur Specific [place] 1.017 (1.001-1.035) Urine Protein 1+ H (Negative) Urine Glucose (UA) 4+ H (Negative) Urine Ketones Negative (Negative) Urine Blood Negative (Negative) Urine Nitrite Negative (Negative) Urine Bilirubin Negative (Negative) Urine Urobilinogen <2.0 (<2.0) mg/dL Ur Leukocyte Esterase Small H (Negative) Urine RBC 5 (0-5) /hpf Urine WBC 5 (0-5) /hpf Ur Squamous Epith Cells 4 (0-4) /hpf Urine Bacteria Rare H (None) /hpf Urine Mucus Rare H (None) /hpf Urine HCG, Qual (Not Detectd) Disposition Clinical Impression: Back pain, Migraine Disposition: HOME SELF-CARE Condition: Good Instructions: Migraine Headache (ED), Back Pain (ED) Additional Instructions: Patient advised to follow-up with primary care physician. Return to emergency department if any alarming signs or symptoms occur. Prescriptions: Cyclobenzaprine [Flexeril] 10 mg PO TID #12 tab Is patient prescribed a controlled substance at d/c from ED?: No Referrals: Korin Fletcher MD [Primary Care Provider] - 1-2 days Time of Disposition: 19:35
[2018-04-15 19:05] VITALS: BP 112/84; PULSE 75; RESP 18
[2018-04-15 19:13] LABS: Basophils % (A) 0 %; Eosinophils % (A) 1 %; HCT 38.3 % (34.0-46.0); HGB 12.1 gm/dL (11.4-16.0); Lymphocytes # (A) 1.2 k/uL (1.0-4.8); Lymphocytes % (A) 46 %; MCH 26.3 pg (25.0-35.0); MCHC 31.7 g/dL (31.0-37.0); MCV 83.1 fL (80.0-100.0); Mean Platelet Volume 7.2; Monocytes # (A) 0.2 k/uL (0-1.0); Monocytes % (A) 6 %; Neutrophils # (A) 1.2 k/uL (1.3-7.7); Neutrophils % (A) 43 %; Platelet Count 234 k/uL (150-450); RBC 4.61 m/uL (3.80-5.40); RDW 14.5 % (11.5-15.5); WBC 2.7 k/uL (3.8-10.6)
[2018-04-15 19:21] LABS: Appearance,Urine Cloudy (Clear); Bacteria,Urine Rare /hpf; Bilirubin,Urine Negative (Negative); Blood,Urine Negative (Negative); Color,Urine Yellow; Glucose,Urine (UA) 4+ (Negative); Ketones,Urine Negative (Negative); Leukocyte Esterase,Urine Small (Negative); Mucus,Urine Rare /hpf; Nitrite,Urine Negative (Negative); Protein,Urine 1+ (Negative); RBC,Urine 5 /hpf (0-5); Specific Gravity,Urine 1.017 (1.001-1.035); Squamous Epithelial Cell,Urine 4 /hpf (0-4); Urobilinogen,Urine <2.0 mg/dL (<2.0); WBC,Urine 5 /hpf (0-5)
[2018-04-15 19:26] LABS: ALT 57 U/L (9-52); AST 44 U/L (14-36); Albumin 3.9 g/dL (3.5-5.0); Alkaline Phosphatase 129 U/L (38-126); Amylase 57 U/L (30-110); Anion Gap 9 mmol/L; Blood Urea Nitrogen 7 mg/dL (7-17); Calcium 9.6 mg/dL (8.4-10.2); Carbon Dioxide 29 mmol/L (22-30); Chloride 101 mmol/L (98-107); Glucose 237 mg/dL (74-99); Lipase 35 U/L (23-300); Potassium 4.2 mmol/L (3.5-5.1); Sodium 139 mmol/L (137-145); Total Bilirubin 0.3 mg/dL (0.2-1.3); Total Protein 8.2 g/dL (6.3-8.2)
[2018-04-15] MEDS ORDERED: CYCLOBENZAPRINE 10MG STARTER 3 TAB BTL PO STA (19:37)
== END 2018-04-15 19:42 | disposition home or self-care (01) ==
LOC: EC 16:12
DX: G43.909 Migraine, unspecified, not intractable, without status migrainosus (principal); M54.5 Low back pain; E11.9 Type 2 diabetes mellitus without complications; D72.819 Decreased white blood cell count, unspecified; Z91.013 Allergy to seafood; Z79.4 Long term (current) use of insulin; Z83.3 Family history of diabetes mellitus
CPT/HCPCS: 36415; 80053; 82150; 83690; 85025; 81001; 81025; 99284; 96374; 96375 ×2; J1200; J2765; J1885

== ENCOUNTER 2018-07-03 22:19 | Emergency (ER) | payer OTHER ==
[2018-07-03] MEDS ORDERED: predniSONE 50 MG TAB PO STA (22:49)
[2018-07-03] MEDS ORDERED: MORPHINE SULFATE 4 MG/ML SYRINGE IM STA (22:49)
[2018-07-03] MEDS ORDERED: KETOROLAC 30 MG/ML 1 ML VIAL IM STA (22:49)
--- NOTE | 2018-07-03 22:51 | ED ---
ENT HPI - General Source: patient Mode of arrival: ambulatory Limitations: no limitations <Mavis Higgins - Last Filed: 07/03/18 23:01> <Amy Sage - Last Filed: 07/05/18 02:11> - General Chief complaint: Dental/Oral Stated complaint: Abcessed tooth, face swollen Time Seen by Provider: 07/03/18 22:43 - History of Present Illness Initial comments: 32-year-old female patient presents to the emergency department today for evaluation of left upper dental pain. Patient states his been going on for the last 3-4 days. States she was seen and evaluated at [facility] last evening diagnosed with dental abscess given a prescription for pain medication and antibiotics. Patient states she did start both. States last time she took pain medicine was at 7 PM. States she also took 600 mg of Motrin. Patient states that neither the pain medication or antibiotics have been helping. She states that her pain is severe and is causing a headache. She has not yet made a dentist appointment. She denies any fevers or chills with this. Denies any vomiting. She denies any trismus or difficulty swallowing. Patient denies any recent rash, shortness breath, chest pain, abdominal pain, diarrhea, constipation, back pain, numbness, tingling, dizziness , weakness, hematuria, dysuria, urinary urgency, urinary frequency, visual changes, or any other complaints. (Mavis Higgins) - Related Data Home Medications Medication Instructions Recorded Confirmed INSULIN LISPRO (humaLOG) [humaLOG] 15 unit SQ AC-TID 10/09/14 07/03/18 Insulin Glargine,Hum.rec.anlog 30 unit SQ HS 03/29/18 07/03/18 [Basaglar Kwikpen U-100] Amoxicillin 500 mg PO TID 07/03/18 07/03/18 HYDROcodone/APAP 5-325MG [[place] 1 tab PO Q6HR PRN 07/03/18 07/03/18 5-325] Allergies Allergy/AdvReac Type Severity Reaction Status Date / Time shellfish derived Allergy Anaphylaxis Verified 07/03/18 22:54 Review of Systems ROS Other: All systems not noted in ROS Statement are negative. <Mavis Higgins - Last Filed: 07/03/18 23:01> ROS Other: All systems not noted in ROS Statement are negative. <Amy Sage P - Last Filed: 07/05/18 02:11> ROS Statement: Those systems with pertinent positive or pertinent negative responses have been documented in the HPI. Past Medical History Past Medical History: Diabetes Mellitus History of Any Multi-Drug Resistant Organisms: None Reported Past Surgical History: Section Additional Past Surgical History / Comment(s): x 2 Past Anesthesia/Blood Transfusion Reactions: No Reported Reaction Past Psychological History: No Psychological Hx Reported Smoking Status: Never smoker Past Alcohol Use History: None Reported Past Drug Use History: None Reported - Past Family History Father Family Medical History: Cancer, Diabetes Mellitus Additional Family Medical History / Comment(s): Diabetes also on mother's side; Heart disease <Mavis Higgins M - Last Filed: 07/03/18 23:01> General Exam Limitations: no limitations General appearance: alert, in no apparent distress, other (This is a well- developed, well-nourished adult female patient in moderate distress related to pain. Vital signs upon presentation are temperature 98.8F, pulse 86, respirations 20, blood pressure 132/84, pulse ox 99% on room air.) Eye exam: Present: normal appearance, PERRL, EOMI. Absent: scleral icterus, conjunctival injection, periorbital swelling ENT exam: Present: normal oropharynx, mucous membranes moist, other (Patient has very poor dentition with evidence of dental abscess to the left upper mouth. Multiple broken teeth. Gingival swelling. No evidence of drainable abscess.). Absent: normal exam Respiratory exam: Present: normal lung sounds bilaterally. Absent: respiratory distress, wheezes, rales, rhonchi, stridor Cardiovascular Exam: Present: regular rate, normal rhythm, normal heart sounds. Absent: systolic murmur, diastolic murmur, rubs, gallop, clicks Neurological exam: Present: alert, oriented X3, CN II-XII intact Psychiatric exam: Present: normal affect, normal mood Skin exam: Present: warm, dry, intact, normal color. Absent: rash <Mavis Higgins M - Last Filed: 07/03/18 23:01> Vital Signs 07/03/18 07/03/18 22:37 23:39 Temperature 98.8 F 98.5 F Pulse Rate 86 74 Respiratory 20 17 Rate Blood Pressure 132/84 127/87 O2 Sat by Pulse 99 99 Oximetry Medical Decision Making <Mavis Higgins - Last Filed: 07/03/18 23:01> <Amy Sage - Last Filed: 07/05/18 02:11> - Medical Decision Making 32-year-old female patient presents to the emergency department today for evaluation of left upper dental pain. Physical examination did reveal dental infection with swollen gingiva and evidence of abscess however not drainable. Patient was seen and evaluated at [facility] yesterday was given prescription for pain medication and antibiotics. Given presence of infection we will not perform dental block. She'll be given injections for pain medication. She is instructed to follow-up with dentistry as soon as possible and to continue her home medications. Return parameters were discussed in detail. She verbalizes understanding and agrees with this plan. (Mavis Higgins) I was available for consultation in the emergency department. The history and physical exam were done by the midlevel provider. I was consulted for this patient's care. I reviewed the case with the midlevel provider and based on their presentation of the patient, I agree with the assessment, medical decision making and plan of care as documented. (Amy Sage) Disposition Is patient prescribed a controlled substance at d/c from ED?: No Time of Disposition: 22:51 <Mavis Higgins - Last Filed: 07/03/18 23:01> <Amy Sage - Last Filed: 07/05/18 02:11> Clinical Impression: Dental abscess Disposition: HOME SELF-CARE Condition: Good Instructions: Dental Abscess (ED), Toothache (ED) Additional Instructions: Apply cool compresses to the face. Take medication as directed. Follow up with primary care physician for recheck in 1-2 days. Follow up with dentistry for recheck as soon as possible. Return immediately for any new, worsening, or concerning symptoms. Referrals: Korin Fletcher MD [Primary Care Provider] - 1-2 days
[2018-07-03 23:40] VITALS: BP 127/87; PULSE 74; RESP 17; TEMP 98.5
== END 2018-07-03 23:40 | disposition home or self-care (01) ==
LOC: EC 22:19
DX: K04.7 Periapical abscess without sinus (principal); K03.81 Cracked tooth; E11.9 Type 2 diabetes mellitus without complications; Z79.4 Long term (current) use of insulin; Z91.013 Allergy to seafood
CPT/HCPCS: 99282; 96372 ×2; J2270; J1885; J7512

== ENCOUNTER 2018-07-06 21:32 | Emergency (ER) | payer OTHER ==
[2018-07-06 21:42] VITALS: BP 145/85; PULSE 75; RESP 18; TEMP 99.2
[2018-07-06] MEDS ORDERED: SODIUM CHLORIDE 0.9% 1,000 ML IV STA (22:23)
[2018-07-06] MEDS ORDERED: ACETAMINOPHEN TAB 325 MG TAB PO STA ×2 (23:12→23:23)
[2018-07-06] MEDS ORDERED: diphenhydrAMINE 50 MG/ML 1 ML VIAL IVP STA (23:21)
[2018-07-06] MEDS ORDERED: FAMOTIDINE 20 MG/2 ML VIAL IV STA (23:21)
[2018-07-06] MEDS ORDERED: methylPREDNISolone SOD SUCCI 125 MG/2 ML VIAL IV STA (23:21)
[2018-07-06 23:22] LABS: ALT 24 U/L (9-52); AST 23 U/L (14-36); Albumin 3.7 g/dL (3.5-5.0); Alkaline Phosphatase 87 U/L (38-126); Anion Gap 7 mmol/L; Basophils % (A) 0 %; Blood Urea Nitrogen 8 mg/dL (7-17); Calcium 9.3 mg/dL (8.4-10.2); Carbon Dioxide 30 mmol/L (22-30); Chloride 100 mmol/L (98-107); Eosinophils % (A) 1 %; Glucose 309 mg/dL (74-99); HCT 34.8 % (34.0-46.0); Lymphocytes # (A) 1.5 k/uL (1.0-4.8); Lymphocytes % (A) 39 %; MCHC 31.5 g/dL (31.0-37.0); MCV 79.5 fL (80.0-100.0); Mean Platelet Volume 6.7; Monocytes # (A) 0.1 k/uL (0-1.0); Monocytes % (A) 3 %; Neutrophils % (A) 54 %; Platelet Count 251 k/uL (150-450); Potassium 3.7 mmol/L (3.5-5.1); RBC 4.38 m/uL (3.80-5.40); RDW 13.9 % (11.5-15.5); Sodium 137 mmol/L (137-145); Total Bilirubin 0.3 mg/dL (0.2-1.3); Total Protein 7.5 g/dL (6.3-8.2); WBC 3.7 k/uL (3.8-10.6)
--- NOTE | 2018-07-07 00:01 | CT ---
EXAMINATION TYPE: CT facial bones wo con DATE OF EXAM: 07/06/2018 COMPARISON: None HISTORY: Left-sided jaw pain CT DLP: mGycm Automated exposure control for dose reduction was used. TECHNIQUE: CT scan of the sinuses is performed without contrast, axial images are obtained, coronal r eformatted images are also reviewed. FINDINGS: There is subcutaneous edema in the left submandibular region. The parotid glands are symmet justina. Submandibular salivary glands are symmetric. There are multiple enlarged left side submandibular lymph nodes that measure up to 1.5 x 1.5 cm. There are carotid calcifications on the left side and t o a lesser extent the right side. There is no soft tissue air. The mandible appears intact. I see no bony destructive process. There is moderate mucosal thickening left maxillary sinus. The ethmoid and frontal sinuses appear walt rly normal. Sphenoid sinus appears normal. Orbital margins are intact. There is no evidence of a blow out fracture. There is no retro-orbital mass. There are anterior triangle humerus left-sided cervical lymph nodes that measure up to 1 cm. There is similar appearance on the right side. There is no disc rete fluid collection. There is no evidence of a pharyngeal mass. Epiglottis appears normal. Visualized trachea appears norm al. IMPRESSION: Subcutaneous edema and left submandibular lymphadenopathy consistent with inflammatory pr ocess and cellulitis. No abscess seen. Parotid calcifications consistent with old inflammatory disease. Mild left maxillary sinusitis. Mild bilateral anterior triangle cervical lymphadenopathy.
[2018-07-07] MEDS ORDERED: CLINDAMYCIN 600 MG in DEXTROSE 5% IN WATER 50 ML IVPB STA ×2 (00:12)
[2018-07-07 00:16] LABS: Appearance,Urine Cloudy (Clear); Bacteria,Urine Rare /hpf; Bilirubin,Urine Negative (Negative); Blood,Urine Small (Negative); Color,Urine Light Yellow; Glucose,Urine (UA) 4+ (Negative); Hyaline Casts,Urine 2 /lpf (0-2); Ketones,Urine Negative (Negative); Leukocyte Esterase,Urine Large (Negative); Mucus,Urine Rare /hpf; Nitrite,Urine Negative (Negative); PH, Urine 5.5 (5.0-8.0); Protein,Urine 1+ (Negative); RBC,Urine 10 /hpf (0-5); Specific Gravity,Urine 1.026 (1.001-1.035); Squamous Epithelial Cell,Urine 5 /hpf (0-4); Urobilinogen,Urine <2.0 mg/dL (<2.0)
--- NOTE | 2018-07-07 00:23 | ED ---
General Adult HPI - General Source: patient, RN notes reviewed, old records reviewed Mode of arrival: ambulatory Limitations: no limitations <Devin Spencer - Last Filed: 07/07/18 00:39> <Amy Sage - Last Filed: 07/07/18 09:55> - General Chief complaint: Dental/Oral Stated complaint: Abscess tooth - History of Present Illness Initial comments: 32-year-old female patient has no history of type 2 diabetes, poor dentition presents to ED with dental pain. Patient been evaluated 3 times the last week for this problem, including [facility], and [facility] on 07/03/17. Patient has been on amoxicillin for approximately 5 days. Patient reports that she is still having pain in her left upper molar region, for she has had some facial swelling along her left cheek area. Patient presents for continued evaluation. Patient denies nausea vomiting diarrhea, abdominal pain, chest pain, shortness breath. Patient states that she felt warm but did not have a fever when she checked. Patient is that she just finished her menses and cannot be . Patient denies other complaints. Systemic: Pt denies fatigue, myalgia, chills, rash. Pt denies weakness, night sweats, weight loss. Neuro: Pt denies headache, visual disturbances, syncope or pre-syncope. HEENT: Pt denies ocular discharge or irritation, otalgia, rhinorrhea, pharyngitis or notable lymphadenopathy. Cardiopulmonary: Pt denies chest pain, SOB, heart palpitations, dyspnea on exertion. Abdominal/GI: Pt denies abdominal pain, n/v/d. : Pt denies dysuria, burning w/ urination, frequency/urgency. Denies new onset urinary or bowel incontinence. MSK: Pt denies myalgia, loss of strength or function in extremities. Neuro: Pt denies new onset weakness, paresthesias. (Devin pSencer) - Related Data Home Medications Medication Instructions Recorded Confirmed INSULIN LISPRO (humaLOG) [humaLOG] 15 unit SQ AC-TID 10/09/14 07/03/18 Insulin Glargine,Hum.rec.anlog 30 unit SQ HS 03/29/18 07/03/18 [Basaglar Kwikpen U-100] Amoxicillin 500 mg PO TID 07/03/18 07/03/18 HYDROcodone/APAP 5-325MG [[place] 1 tab PO Q6HR PRN 07/03/18 07/03/18 5-325] Previous Rx's Medication Instructions Recorded Clindamycin HCl [Cleocin] 450 mg PO Q8HR 7 Days #63 cap 07/07/18 Allergies Allergy/AdvReac Type Severity Reaction Status Date / Time shellfish derived Allergy Anaphylaxis Verified 07/06/18 21:42 Review of Systems ROS Other: All systems not noted in ROS Statement are negative. <Devin Spencer - Last Filed: 07/07/18 00:39> ROS Other: All systems not noted in ROS Statement are negative. <Amy Sage - Last Filed: 07/07/18 09:55> ROS Statement: Those systems with pertinent positive or pertinent negative responses have been documented in the HPI. Past Medical History Past Medical History: Diabetes Mellitus History of Any Multi-Drug Resistant Organisms: None Reported Past Surgical History: Section Additional Past Surgical History / Comment(s): x 2, Past Anesthesia/Blood Transfusion Reactions: No Reported Reaction Past Psychological History: No Psychological Hx Reported Smoking Status: Never smoker Past Alcohol Use History: None Reported Past Drug Use History: None Reported - Past Family History Father Family Medical History: Cancer, Diabetes Mellitus Additional Family Medical History / Comment(s): Diabetes also on mother's side; Heart disease <Devin Spencer - Last Filed: 07/07/18 00:39> General Exam Limitations: no limitations <Devin Spencer - Last Filed: 07/07/18 00:39> <Amy Sage - Last Filed: 07/07/18 09:55> - General Exam Comments Initial Comments: Constitutional: NAD, AOX3, Pt has pleasant affect. HEENT: NC/AT, trachea midline, neck supple, no lymphadenopathy. Posterior pharynx non erythematous, without exudates. External ears appear normal, without discharge. Mucous membranes moist. Eyes PERRLA, EOM intact. There is no scleral icterus. No pallor noted. Dental exam displayed poor dentition, pt has some tenderness to palpation along teeth #14 and 15. Some localized erythema noted, however no abscess or drainage appreciated. No areas of fluctuance. Patient has some minor soft tissue swelling along left cheek. Patient martinez open jaw, has full range of motion. Cardiopulmonary: RRR, no murmurs, rubs or gallops, no JVD noted. Lungs CTAB in anterior and posterior martinez. No peripheral edema. Abdominal exam: Abdomen soft and non-distended. Abdomen non-tender to palpation in all 4 quadrants. Bowel sounds active in LLQ. No hepatosplenomegaly. No ecchymosis Neuro: CN II-XII grossly intact. No nuchal rigidity. MSK: No posterior calf tenderness bilaterally, homans sign negative bilaterally. Posterior tibialis and radial pulse +2 bilaterally. Sensation intact in upper and lower extremities. Full active ROM in upper and lower extremities, 5/5 stregnth. (Devin Spencer) Vital Signs 07/06/18 07/06/18 21:37 23:02 Temperature 99.2 F Pulse Rate 75 Respiratory 18 18 Rate Blood Pressure 145/85 O2 Sat by Pulse 98 Oximetry Medical Decision Making - Lab Data Result diagrams: 07/06/18 22:50 07/06/18 22:50 <Devin Spencer - Last Filed: 07/07/18 00:39> - Lab Data Result diagrams: 07/06/18 22:50 07/06/18 22:50 <Amy Sage - Last Filed: 07/07/18 09:55> - Medical Decision Making 32-year-old female patient has no history of type 2 diabetes, poor dentition presents to ED with dental pain. Patient been evaluated 3 times the last week for this problem, including [facility], and [facility] on 07/03/17. Patient has been on amoxicillin for approximately 5 days. Patient reports that she is still having pain in her left upper molar region, for she has had some facial swelling along her left cheek area. Patient presents for continued evaluation. Physical exam displayed: Dental exam displayed poor dentition, pt has some tenderness to palpation along teeth #14 and 15. Some localized erythema noted, however no abscess or drainage appreciated. No areas of fluctuance. Patient has some minor soft tissue swelling along left cheek. Patient martinez open jaw, has full range of motion. No other pathologic findings. Investigations revealed noncompressive CBC. CMP revealed hyperglycemia 309. Pt reports that she has not taken her nightly dose of insulin and will take it when she gets home. UA revealed +4 glucose, 10 RBC, 5 squamous cells, 17 wbc. Blood is likely 2/2 to pt menses recently ending, urine will be cultured. HCG negative. CT of facewithout contrast displaced subcutaneous edema and submandibular lymphdenopathy, no abcess seen. CT also displayed mild sinusitis. Explained to pt that I would like to administer a dose of IV abx, pt declined stated that she wanted to leave as soon as possible. Pt to be rx clindamycin 450mg TID for 7 days. Pt to complete amoxicillin. Pt to f/u with PCP in 1-2 days for continued evaluation. Explained to pt that she needs to have continued evaluation of her diabetes, verbalized understanding. Pt to return to ED if new s/sx develop or if condition worsens in anyway. Case discussed with Dr. Sage. (Devin Spencer) I was available for consultation in the emergency department. The history and physical exam were done by the midlevel provider. I was consulted for this patient's care. I reviewed the case with the midlevel provider and based on their presentation of the patient, I agree with the assessment, medical decision making and plan of care as documented. (Amy Sage) - Lab Data Lab Results 07/06/18 07/06/18 07/06/18 Range/Units 22:50 22:50 23:50 WBC 3.7 L (3.8-10.6) k/uL RBC 4.38 (3.80-5.40) m/uL Hgb 11.0 L (11.4-16.0) gm/dL Hct 34.8 (34.0-46.0) % MCV 79.5 L (80.0-100.0) fL MCH 25.0 (25.0-35.0) pg MCHC 31.5 (31.0-37.0) g/dL RDW 13.9 (11.5-15.5) % Plt Count 251 (150-450) k/uL Neutrophils % 54 % Lymphocytes % 39 % Monocytes % 3 % Eosinophils % 1 % Basophils % 0 % Neutrophils # 2.0 (1.3-7.7) k/uL Lymphocytes # 1.5 (1.0-4.8) k/uL Monocytes # 0.1 (0-1.0) k/uL Eosinophils # 0.0 (0-0.7) k/uL Basophils # 0.0 (0-0.2) k/uL Sodium 137 (137-145) mmol/L Potassium 3.7 (3.5-5.1) mmol/L Chloride 100 (98-107) mmol/L Carbon Dioxide 30 (22-30) mmol/L Anion Gap 7 mmol/L BUN 8 (7-17) mg/dL Creatinine 0.53 (0.52-1.04) mg/dL Est GFR (CKD-EPI)AfAm >90 (>60 ml/min/1.73 sqM) Est GFR (CKD-EPI)NonAf >90 (>60 ml/min/1.73 sqM) Glucose 309 H (74-99) mg/dL Calcium 9.3 (8.4-10.2) mg/dL Total Bilirubin 0.3 (0.2-1.3) mg/dL AST 23 (14-36) U/L ALT 24 (9-52) U/L Alkaline Phosphatase 87 (38-126) U/L Total Protein 7.5 (6.3-8.2) g/dL Albumin 3.7 (3.5-5.0) g/dL Urine Color Urine Appearance (Clear) Urine pH (5.0-8.0) Ur Specific [place] (1.001-1.035) Urine Protein (Negative) Urine Glucose (UA) (Negative) Urine Ketones (Negative) Urine Blood (Negative) Urine Nitrite (Negative) Urine Bilirubin (Negative) Urine Urobilinogen (<2.0) mg/dL Ur Leukocyte Esterase (Negative) Urine RBC (0-5) /hpf Urine WBC (0-5) /hpf Ur Squamous Epith Cells (0-4) /hpf Urine Bacteria (None) /hpf Hyaline Casts (0-2) /lpf Urine Mucus (None) /hpf Urine HCG, Qual Not Detected (Not Detectd) 07/06/18 Range/Units 23:50 WBC (3.8-10.6) k/uL RBC (3.80-5.40) m/uL Hgb (11.4-16.0) gm/dL Hct (34.0-46.0) % MCV (80.0-100.0) fL MCH (25.0-35.0) pg MCHC (31.0-37.0) g/dL RDW (11.5-15.5) % Plt Count (150-450) k/uL Neutrophils % % Lymphocytes % % Monocytes % % Eosinophils % % Basophils % % Neutrophils # (1.3-7.7) k/uL Lymphocytes # (1.0-4.8) k/uL Monocytes # (0-1.0) k/uL Eosinophils # (0-0.7) k/uL Basophils # (0-0.2) k/uL Sodium (137-145) mmol/L Potassium (3.5-5.1) mmol/L Chloride (98-107) mmol/L Carbon Dioxide (22-30) mmol/L Anion Gap mmol/L BUN (7-17) mg/dL Creatinine (0.52-1.04) mg/dL Est GFR (CKD-EPI)AfAm (>60 ml/min/1.73 sqM) Est GFR (CKD-EPI)NonAf (>60 ml/min/1.73 sqM) Glucose (74-99) mg/dL Calcium (8.4-10.2) mg/dL Total Bilirubin (0.2-1.3) mg/dL AST (14-36) U/L ALT (9-52) U/L Alkaline Phosphatase (38-126) U/L Total Protein (6.3-8.2) g/dL Albumin (3.5-5.0) g/dL Urine Color Light Yellow Urine Appearance Cloudy H (Clear) Urine pH 5.5 (5.0-8.0) Ur Specific [place] 1.026 (1.001-1.035) Urine Protein 1+ H (Negative) Urine Glucose (UA) 4+ H (Negative) Urine Ketones Negative (Negative) Urine Blood Small H (Negative) Urine Nitrite Negative (Negative) Urine Bilirubin Negative (Negative) Urine Urobilinogen <2.0 (<2.0) mg/dL Ur Leukocyte Esterase Large H (Negative) Urine RBC 10 H (0-5) /hpf Urine WBC 17 H (0-5) /hpf Ur Squamous Epith Cells 5 H (0-4) /hpf Urine Bacteria Rare H (None) /hpf Hyaline Casts 2 (0-2) /lpf Urine Mucus Rare H (None) /hpf Urine HCG, Qual (Not Detectd) Disposition Is patient prescribed a controlled substance at d/c from ED?: No Time of Disposition: 00:22 <Devin Spencer - Last Filed: 07/07/18 00:39> <Amy Sage - Last Filed: 07/07/18 09:55> Clinical Impression: Dental infection Disposition: HOME SELF-CARE Condition: Fair Instructions: Dental Caries (ED), Toothache (ED) Additional Instructions: Patient to adhere to previously discussed treatment plan and will take medication(s) as directed. Patient to follow up with PCP in 1-2 days. Patient to return to ED if symptoms do not improve. Prescriptions: Clindamycin HCl [Cleocin] 450 mg PO Q8HR 7 Days #63 cap Referrals: Korin Fletcher MD [Primary Care Provider] - 1-2 days
--- NOTE | 2018-07-07 03:12 | ED ---
Medical Decision Making - Medical Decision Making Pt has established f/u with dentist in approximately 2 weeks. Pt to keep appointment, f/u with dentist sooner if possible. - Lab Data Result diagrams: 07/06/18 22:50 07/06/18 22:50 Lab Results 07/06/18 07/06/18 07/06/18 Range/Units 22:50 22:50 23:50 WBC 3.7 L (3.8-10.6) k/uL RBC 4.38 (3.80-5.40) m/uL Hgb 11.0 L (11.4-16.0) gm/dL Hct 34.8 (34.0-46.0) % MCV 79.5 L (80.0-100.0) fL MCH 25.0 (25.0-35.0) pg MCHC 31.5 (31.0-37.0) g/dL RDW 13.9 (11.5-15.5) % Plt Count 251 (150-450) k/uL Neutrophils % 54 % Lymphocytes % 39 % Monocytes % 3 % Eosinophils % 1 % Basophils % 0 % Neutrophils # 2.0 (1.3-7.7) k/uL Lymphocytes # 1.5 (1.0-4.8) k/uL Monocytes # 0.1 (0-1.0) k/uL Eosinophils # 0.0 (0-0.7) k/uL Basophils # 0.0 (0-0.2) k/uL Sodium 137 (137-145) mmol/L Potassium 3.7 (3.5-5.1) mmol/L Chloride 100 (98-107) mmol/L Carbon Dioxide 30 (22-30) mmol/L Anion Gap 7 mmol/L BUN 8 (7-17) mg/dL Creatinine 0.53 (0.52-1.04) mg/dL Est GFR (CKD-EPI)AfAm >90 (>60 ml/min/1.73 sqM) Est GFR (CKD-EPI)NonAf >90 (>60 ml/min/1.73 sqM) Glucose 309 H (74-99) mg/dL Calcium 9.3 (8.4-10.2) mg/dL Total Bilirubin 0.3 (0.2-1.3) mg/dL AST 23 (14-36) U/L ALT 24 (9-52) U/L Alkaline Phosphatase 87 (38-126) U/L Total Protein 7.5 (6.3-8.2) g/dL Albumin 3.7 (3.5-5.0) g/dL Urine Color Urine Appearance (Clear) Urine pH (5.0-8.0) Ur Specific [place] (1.001-1.035) Urine Protein (Negative) Urine Glucose (UA) (Negative) Urine Ketones (Negative) Urine Blood (Negative) Urine Nitrite (Negative) Urine Bilirubin (Negative) Urine Urobilinogen (<2.0) mg/dL Ur Leukocyte Esterase (Negative) Urine RBC (0-5) /hpf Urine WBC (0-5) /hpf Ur Squamous Epith Cells (0-4) /hpf Urine Bacteria (None) /hpf Hyaline Casts (0-2) /lpf Urine Mucus (None) /hpf Urine HCG, Qual Not Detected (Not Detectd) 07/06/18 Range/Units 23:50 WBC (3.8-10.6) k/uL RBC (3.80-5.40) m/uL Hgb (11.4-16.0) gm/dL Hct (34.0-46.0) % MCV (80.0-100.0) fL MCH (25.0-35.0) pg MCHC (31.0-37.0) g/dL RDW (11.5-15.5) % Plt Count (150-450) k/uL Neutrophils % % Lymphocytes % % Monocytes % % Eosinophils % % Basophils % % Neutrophils # (1.3-7.7) k/uL Lymphocytes # (1.0-4.8) k/uL Monocytes # (0-1.0) k/uL Eosinophils # (0-0.7) k/uL Basophils # (0-0.2) k/uL Sodium (137-145) mmol/L Potassium (3.5-5.1) mmol/L Chloride (98-107) mmol/L Carbon Dioxide (22-30) mmol/L Anion Gap mmol/L BUN (7-17) mg/dL Creatinine (0.52-1.04) mg/dL Est GFR (CKD-EPI)AfAm (>60 ml/min/1.73 sqM) Est GFR (CKD-EPI)NonAf (>60 ml/min/1.73 sqM) Glucose (74-99) mg/dL Calcium (8.4-10.2) mg/dL Total Bilirubin (0.2-1.3) mg/dL AST (14-36) U/L ALT (9-52) U/L Alkaline Phosphatase (38-126) U/L Total Protein (6.3-8.2) g/dL Albumin (3.5-5.0) g/dL Urine Color Light Yellow Urine Appearance Cloudy H (Clear) Urine pH 5.5 (5.0-8.0) Ur Specific [place] 1.026 (1.001-1.035) Urine Protein 1+ H (Negative) Urine Glucose (UA) 4+ H (Negative) Urine Ketones Negative (Negative) Urine Blood Small H (Negative) Urine Nitrite Negative (Negative) Urine Bilirubin Negative (Negative) Urine Urobilinogen <2.0 (<2.0) mg/dL Ur Leukocyte Esterase Large H (Negative) Urine RBC 10 H (0-5) /hpf Urine WBC 17 H (0-5) /hpf Ur Squamous Epith Cells 5 H (0-4) /hpf Urine Bacteria Rare H (None) /hpf Hyaline Casts 2 (0-2) /lpf Urine Mucus Rare H (None) /hpf Urine HCG, Qual (Not Detectd) Disposition Clinical Impression: Dental infection Disposition: HOME SELF-CARE Condition: Fair Instructions: Dental Caries (ED), Toothache (ED) Additional Instructions: Patient to adhere to previously discussed treatment plan and will take medication(s) as directed. Patient to follow up with PCP in 1-2 days. Patient to return to ED if symptoms do not improve. Prescriptions: Clindamycin HCl [Cleocin] 450 mg PO Q8HR 7 Days #63 cap Is patient prescribed a controlled substance at d/c from ED?: No Referrals: Korin Fletcher MD [Primary Care Provider] - 1-2 days
== END 2018-07-07 00:25 | disposition home or self-care (01) ==
LOC: EC 21:32
DX: K04.7 Periapical abscess without sinus (principal); J32.9 Chronic sinusitis, unspecified; R22.0 Localized swelling, mass and lump, head; E11.65 Type 2 diabetes mellitus with hyperglycemia; Z79.4 Long term (current) use of insulin; Z91.013 Allergy to seafood
CPT/HCPCS: 36415; 70486; 80053; 81001; 81025; 85025; 87086; 96360; 99284

== ENCOUNTER 2019-02-23 19:49 | Emergency (ER) | payer OTHER ==
[2019-02-23 20:09] VITALS: TEMP 97.8
--- NOTE | 2019-02-23 21:44 | XR ---
PROCEDURE: XR wrist complete RT - 3V DATE AND TIME: 02/23/2019 9:10 PM CLINICAL INDICATION: PHH; Pain TECHNIQUE: Department protocol COMPARISON: None FINDINGS: There is no fracture or malalignment. The soft tissues are unremarkable. IMPRESSION: NO ACUTE PROCESS.
[2019-02-23] MEDS ORDERED: IBUPROFEN 600 MG STARTER PACK 4 TAB BTL PO STA (21:58)
[2019-02-23] MEDS ORDERED: IBUPROFEN 600 MG TAB PO STA (21:58)
--- NOTE | 2019-02-23 21:59 | ED ---
General Adult HPI - General Chief complaint: Extremity Injury, Upper Stated complaint: Wrist pain Time Seen by Provider: 02/23/19 20:47 Source: patient, RN notes reviewed, old records reviewed Mode of arrival: ambulatory Limitations: no limitations - History of Present Illness Initial comments: 32-year-old female patient presents to ED with chief complaint of right wrist pain for approximately 3 weeks. Patient notes that is worse in the morning, worse with movements. Patient hasn't trauma. Denies any complaints this time. Systemic: Pt denies fatigue, fever/chills, rash. Pt denies weakness, night sweats, weight loss. Neuro: Pt denies headache, visual disturbances, syncope or pre-syncope. HEENT: Pt denies ocular discharge or irritation, otalgia, rhinorrhea, pharyngitis or notable lymphadenopathy. Cardiopulmonary: Pt denies chest pain, SOB, heart palpitations, dyspnea on exertion. Abdominal/GI: Pt denies abdominal pain, n/v/d. : Pt denies dysuria, burning w/ urination, frequency/urgency. Denies new onset urinary or bowel incontinence. MSK: Pt denies myalgia, loss of strength or function in extremities. Neuro: Pt denies new onset weakness, paresthesias. - Related Data Home Medications Medication Instructions Recorded Confirmed INSULIN LISPRO (humaLOG) [humaLOG] 15 unit SQ AC-TID 10/09/14 07/03/18 Insulin Glargine,Hum.rec.anlog 30 unit SQ HS 03/29/18 07/03/18 [Basaglar Kwikpen U-100] Amoxicillin 500 mg PO TID 07/03/18 07/03/18 HYDROcodone/APAP 5-325MG [[place] 1 tab PO Q6HR PRN 07/03/18 07/03/18 5-325] Previous Rx's Medication Instructions Recorded Clindamycin HCl [Cleocin] 450 mg PO Q8HR 7 Days #63 cap 07/07/18 Allergies Allergy/AdvReac Type Severity Reaction Status Date / Time shellfish derived Allergy Anaphylaxis Verified 02/23/19 20:10 Review of Systems ROS Statement: Those systems with pertinent positive or pertinent negative responses have been documented in the HPI. ROS Other: All systems not noted in ROS Statement are negative. Past Medical History Past Medical History: Diabetes Mellitus History of Any Multi-Drug Resistant Organisms: None Reported Past Surgical History: Section Additional Past Surgical History / Comment(s): x 2, Past Anesthesia/Blood Transfusion Reactions: No Reported Reaction Past Psychological History: No Psychological Hx Reported Smoking Status: Never smoker Past Alcohol Use History: None Reported Past Drug Use History: None Reported - Past Family History Father Family Medical History: Cancer, Diabetes Mellitus Additional Family Medical History / Comment(s): Diabetes also on mother's side; Heart disease General Exam - General Exam Comments Initial Comments: Constitutional: NAD, AOX3, Pt has pleasant affect. HEENT: NC/AT, trachea midline, neck supple, no lymphadenopathy. Posterior pharynx non erythematous, without exudates. External ears appear normal, without discharge. Mucous membranes moist. Eyes PERRLA, EOM intact. There is no scleral icterus. No pallor noted. Cardiopulmonary: RRR, no murmurs, rubs or gallops, no JVD noted. Lungs CTAB in anterior and posterior martinez. No peripheral edema. Abdominal exam: Abdomen soft and non-distended. Abdomen non-tender to palpation in all 4 quadrants. Bowel sounds active in LLQ. No hepatosplenomegaly. No ecchymosis Neuro: CN II-XII grossly intact. No nuchal rigidity. No raccon eyes, no renae sign, no hemotympanum. No cervical spinal tenderness. MSK: Palmar aspect of right wrist mild tenderness to palpation. No skin changes. No snuffbox tenderness. No posterior calf tenderness bilaterally, h omans sign negative bilaterally. Posterior tibialis and radial pulse +2 bilaterally. Sensation intact in upper and lower extremities. Full active ROM in upper and lower extremities, 5/5 stregnth. Limitations: no limitations Course Vital Signs 02/23/19 02/23/19 20:05 22:28 Temperature 97.8 F Pulse Rate 67 69 Respiratory 16 18 Rate Blood Pressure 140/81 127/81 O2 Sat by Pulse 100 99 Oximetry Medical Decision Making - Medical Decision Making 33-year-old female patient presents ED chief complaint right wrist pain. There is some worse the morning. Patient was in stable, afebrile. Physical exam displayed mild tenderness to palpation at palmar aspect of distal wrist. No snuffbox tenderness. No skin changes. Plain films displayed no acute process. Patient states that the initial splint. Patient discharged with anti- inflammatories and orthopedic follow-up. Patient states that there is no way she can be . Case discussed with Dr. Franco. Disposition Clinical Impression: Wrist pain Disposition: HOME SELF-CARE Condition: Stable Instructions (If sedation given, give patient instructions): Arthralgia (ED) Additional Instructions: Patient to adhere to previously discussed treatment plan and will take medication(s) as directed. Patient to follow up with PCP in 1-2 days. Patient to return to ED if symptoms do not improve. Follow-up with primary care provider and orthopedic consult. Use ibuprofen as needed for pain. Return to ER if condition worsens. Continue to wear neutral splint. Is patient prescribed a controlled substance at d/c from ED?: No Referrals: Korin Fletcher MD [Primary Care Provider] - 1-2 days Demetrio Schneider MD [STAFF PHYSICIAN] - 1-2 days
[2019-02-23 22:30] VITALS: BP 127/81; PULSE 69; RESP 18
== END 2019-02-23 22:34 | disposition home or self-care (01) ==
LOC: EC 19:49
DX: M25.531 Pain in right wrist (principal); E11.9 Type 2 diabetes mellitus without complications; Z79.4 Long term (current) use of insulin; Z91.013 Allergy to seafood
CPT/HCPCS: 29125; 99284

== ENCOUNTER 2019-05-25 14:10 | Emergency (ER) | payer OTHER ==
[2019-05-25 14:38] VITALS: TEMP 98
[2019-05-25] MEDS ORDERED: methylPREDNISolone SOD SUCCI 125 MG/2 ML VIAL IV STA (15:14)
[2019-05-25] MEDS ORDERED: IPRATROPIUM-ALBUTEROL 3 ML NEB INHALATION STA (15:14)
--- NOTE | 2019-05-25 15:17 | ED ---
URI HPI - General Chief Complaint: Upper Respiratory Infection Stated Complaint: Chest pain, back pain Time Seen by Provider: 05/25/19 14:41 Source: patient, RN notes reviewed, old records reviewed Mode of arrival: ambulatory Limitations: no limitations - History of Present Illness Initial Comments: Kylah is a 33-year-old female presents today for evaluation for cough congestion, some chest discomfort with coughing for the past 4 days. She reports that she works in a [place] [facility] [place]. She denies any fevers or chills at this time. She reports she's been around a sick nephew as well. She denies any other symptoms. - Related Data Home Medications Medication Instructions Recorded Confirmed INSULIN LISPRO (humaLOG) [humaLOG] 15 unit SQ AC-TID 10/09/14 07/03/18 Insulin Glargine,Hum.rec.anlog 30 unit SQ HS 03/29/18 07/03/18 [Basaglar Kwikpen U-100] Amoxicillin 500 mg PO TID 07/03/18 07/03/18 HYDROcodone/APAP 5-325MG [[place] 1 tab PO Q6HR PRN 07/03/18 07/03/18 5-325] Previous Rx's Medication Instructions Recorded Clindamycin HCl [Cleocin] 450 mg PO Q8HR 7 Days #63 cap 07/07/18 Albuterol Inhaler [Ventolin Hfa 1 - 2 puff INHALATION RT-Q6H PRN 05/25/19 Inhaler] #1 inhaler Azithromycin [Zithromax Z-pack] 250 mg PO DIRECTED #6 tab 05/25/19 predniSONE 10 mg PO DAILY #15 tab 05/25/19 Allergies Allergy/AdvReac Type Severity Reaction Status Date / Time shellfish derived Allergy Anaphylaxis Verified 05/25/19 14:38 Review of Systems ROS Statement: Those systems with pertinent positive or pertinent negative responses have been documented in the HPI. ROS Other: All systems not noted in ROS Statement are negative. Past Medical History Past Medical History: Diabetes Mellitus History of Any Multi-Drug Resistant Organisms: None Reported Past Surgical History: Section Additional Past Surgical History / Comment(s): x 2, Past Anesthesia/Blood Transfusion Reactions: No Reported Reaction Past Psychological History: No Psychological Hx Reported Smoking Status: Never smoker Past Alcohol Use History: None Reported Past Drug Use History: None Reported - Past Family History Father Family Medical History: Cancer, Diabetes Mellitus Additional Family Medical History / Comment(s): Diabetes also on mother's side; Heart disease General Exam - General Exam Comments Initial Comments: 33-year-old female. No distress. Limitations: no limitations General appearance: alert, in no apparent distress Head exam: Present: atraumatic, normocephalic, normal inspection Eye exam: Present: normal appearance, PERRL, EOMI. Absent: scleral icterus, conjunctival injection, periorbital swelling ENT exam: Present: normal exam, mucous membranes moist Neck exam: Present: normal inspection. Absent: tenderness, meningismus, lymphadenopathy Respiratory exam: Present: wheezes. Absent: normal lung sounds bilaterally Cardiovascular Exam: Present: regular rate, normal rhythm, normal heart sounds. Absent: systolic murmur, diastolic murmur, rubs, gallop, clicks GI/Abdominal exam: Present: soft, normal bowel sounds. Absent: distended, tenderness, guarding, rebound, rigid Extremities exam: Present: normal inspection, full ROM, normal capillary refill. Absent: tenderness, pedal edema, joint swelling, calf tenderness Back exam: Present: normal inspection Neurological exam: Present: alert, oriented X3, CN II-XII intact Psychiatric exam: Present: normal affect, normal mood Skin exam: Present: warm, dry, intact, normal color. Absent: rash Course Vital Signs 05/25/19 05/25/19 05/25/19 14:35 15:27 15:41 Temperature 98.0 F Pulse Rate 99 98 98 Respiratory 22 Rate Blood Pressure 152/85 O2 Sat by Pulse 96 Oximetry 05/25/19 05/25/19 16:29 17:02 Temperature Pulse Rate 76 81 Respiratory 16 16 Rate Blood Pressure 141/92 145/87 O2 Sat by Pulse 99 99 Oximetry Medical Decision Making - Medical Decision Making 33-year-old female presents today for evaluation for concerns for cough congestion shortness of breath for the past 3 days. She reports it's been a relatively dry cough. Patient has wheezing noted. Was given DuoNeb treatment and IV Solu-Medrol. Chest x-ray was completed and shows concern for early pneumonia and reactive airway disease. Patient does have improvement after receiving IV steroids and DuoNeb. I discussed the treatment the Patient for pneumonia. She is given Rocephin and we'll discharge the Patient with azithromycin. Discussed resting remaining hydrated and close follow-up with PCP. All questions are answered. 05/25/19 20:23 EKG shows normal sinus rhythm normal EKG. Ventricular rate of 67 bpm. Was 168 ms. QS duration is 82 ms. QTC 392/444seconds.ms. - Radiology Data Radiology results: report reviewed Correlate for bronchitis or reactive air disease. Follow-up is indicated. Subsegmental atelectasis changes in left lung base could difficult to exclude early pneumonia. Disposition Clinical Impression: Pneumonia Disposition: HOME SELF-CARE Condition: Good Instructions (If sedation given, give patient instructions): Upper Respiratory Infection (ED) Additional Instructions: Patient advised to rest, remain hydrated. Take the antibiotics and steroid as prescribed. Use inhaler as directed. Return to emergency department if any alarming signs or symptoms occur. Prescriptions: predniSONE 10 mg PO DAILY #15 tab Albuterol Inhaler [Ventolin Hfa Inhaler] 1 - 2 puff INHALATION RT-Q6H PRN #1 inhaler PRN Reason: Shortness Of Breath Azithromycin [Zithromax Z-pack] 250 mg PO DIRECTED #6 tab Is patient prescribed a controlled substance at d/c from ED?: No Referrals: Korin Fletcher MD [Primary Care Provider] - 1-2 days Time of Disposition: 16:47
--- NOTE | 2019-05-25 16:12 | XR ---
EXAMINATION TYPE: XR chest 2V DATE OF EXAM: 05/25/2019 COMPARISON: Prior chest x-ray 03/29/2018 HISTORY: Cough and congestion, chest pain TECHNIQUE: Frontal and lateral views of the chest are obtained. FINDINGS: There is no pleural effusion or pneumothorax seen. Subsegmental basilar atelectatic change s are suspected on the left. The cardiac silhouette size is within normal limits. There is patient ro tation, overlying cardiac leads are noted. There is bronchial wall thickening. The osseous structures are intact. IMPRESSION: Correlate for bronchitis for reactive airways disease, follow-up as indicated, rotated e xam. Suspect subsegmental atelectatic changes left lung base, difficult to exclude early pneumonia.
[2019-05-25] MEDS ORDERED: cefTRIAXone IN SWFI 1,000 MG/10 ML SYRINGE IVP STA (16:14)
[2019-05-25 16:30] VITALS: RESP 16
[2019-05-25 17:03] VITALS: BP 145/87; PULSE 81
== END 2019-05-25 16:58 | disposition home or self-care (01) ==
LOC: EC 14:10
DX: J18.9 Pneumonia, unspecified organism (principal); E11.9 Type 2 diabetes mellitus without complications; Z91.013 Allergy to seafood; Z79.4 Long term (current) use of insulin
CPT/HCPCS: 94640; 93005; 71046; 99284; 96374; 96375; J2930; J0696

== ENCOUNTER 2019-06-01 19:00 | Emergency (ER) | payer OTHER ==
[2019-06-01] MEDS ORDERED: methylPREDNISolone SOD SUCCI 125 MG/2 ML VIAL IM ONE (19:16)
--- NOTE | 2019-06-01 19:36 | XR ---
EXAMINATION TYPE: XR chest 2V DATE OF EXAM: 06/01/2019 COMPARISON: NONE HISTORY: Cough and congestion TECHNIQUE: Frontal and lateral views of the chest are obtained. FINDINGS: Heart and mediastinum are normal. Lungs are clear. Diaphragm is normal. Bony thorax appear s normal. IMPRESSION: Normal chest. No change.
--- NOTE | 2019-06-01 19:56 | ED ---
URI HPI - General Chief Complaint: Upper Respiratory Infection Stated Complaint: Congested Time Seen by Provider: 06/01/19 19:05 Source: patient Mode of arrival: ambulatory Limitations: no limitations - History of Present Illness Initial Comments: 33-year-old female presenting today for chief complaint of congestion cough. Patient states she was recently diagnosed with a possible developing pneumonia last week. She states she has persistent cough she seems to steroids and antibiotics did not seem to help. Patient denies sore throat. She states she feels like her chest is congested, with slight shortness of breath with cough, denies recent surgeries, hemoptysis, leg swelling, , recent immobilization or injuries. Patient denies cancer, IVDU. Patient denies chest pressure,sharp chest pain, CP with inspiration. patinet denies fevers, vomiting, diarrhea. Patient denies other complaints. Patient states that the cough is keeping her up at night. - Related Data Home Medications Medication Instructions Recorded Confirmed INSULIN LISPRO (humaLOG) [humaLOG] 15 unit SQ AC-TID 10/09/14 07/03/18 Insulin Glargine,Hum.rec.anlog 30 unit SQ HS 03/29/18 07/03/18 [Basaglar Kwikpen U-100] Amoxicillin 500 mg PO TID 07/03/18 07/03/18 HYDROcodone/APAP 5-325MG [[place] 1 tab PO Q6HR PRN 07/03/18 07/03/18 5-325] Previous Rx's Medication Instructions Recorded Clindamycin HCl [Cleocin] 450 mg PO Q8HR 7 Days #63 cap 07/07/18 Albuterol Inhaler [Ventolin Hfa 1 - 2 puff INHALATION RT-Q6H PRN 05/25/19 Inhaler] #1 inhaler Azithromycin [Zithromax Z-pack] 250 mg PO DIRECTED #6 tab 05/25/19 predniSONE 10 mg PO DAILY #15 tab 05/25/19 Benzonatate [Tessalon Perles] 100 mg PO TID PRN 7 Days #21 cap 06/01/19 Ibuprofen 800 mg PO 21 PRN #7 tablet 06/01/19 Allergies Allergy/AdvReac Type Severity Reaction Status Date / Time shellfish derived Allergy Anaphylaxis Verified 06/01/19 19:04 Review of Systems ROS Statement: Those systems with pertinent positive or pertinent negative responses have been documented in the HPI. ROS Other: All systems not noted in ROS Statement are negative. Past Medical History Past Medical History: Diabetes Mellitus History of Any Multi-Drug Resistant Organisms: None Reported Past Surgical History: Section Additional Past Surgical History / Comment(s): x 2, Past Anesthesia/Blood Transfusion Reactions: No Reported Reaction Past Psychological History: No Psychological Hx Reported Smoking Status: Never smoker Past Alcohol Use History: None Reported Past Drug Use History: None Reported - Past Family History Father Family Medical History: Cancer, Diabetes Mellitus Additional Family Medical History / Comment(s): Diabetes also on mother's side; Heart disease General Exam - General Exam Comments Initial Comments: General: The patient is awake and alert, in no distress, and does not appear acutely ill. Eye: +3 mm pupils are equal, round and reactive to light, extra-ocular movement s are intact. No nystagmus. There is normal conjunctiva bilaterally. No signs of icterus. No photophobia Ears, nose, mouth and throat: There are moist mucous membranes and no oral lesions. Oropharynx was not erythematous there is no tonsillar enlargement exudates or lesions. Uvula midline. Tympanic membranes are not erythematous or is no effusions bulging or retraction. No tenderness to palpation of the mastoid. No anterior cervical lymphadenopathy. Rhinorrhea, clear and bilateral nares. No tripoding, no drooling. Neck: The neck is supple, there is no tenderness or JVD. No nuchal rigidity negative Cardiovascular: There is a regular rate and rhythm. No murmur, rub or gallop is appreciated. Respiratory: Lungs are clear to auscultation, respirations are non-labored, breath sounds are equal. No wheezes, stridor, rales, or rhonchi. No retractions or abdominal breathing. Dry cough. Gastrointestinal: Soft, non-distended, non-tender abdomen without masses or organomegaly noted. There is no rebound or guarding present. Bowel sounds are unremarkable. Musculoskeletal: Normal ROM, no tenderness. Strength 5/5. Sensation intact. Radial pulses equal bilaterally 2+. Neurological: A&O x 3. CN II-XII intact, There are no obvious motor or sensory deficits. Coordination appears grossly intact. Speech appears normal, no muffling. Skin: Skin is warm and dry and no rashes or lesions are noted. No extremity edema Psychiatric: Cooperative Limitations: no limitations Course Vital Signs 06/01/19 06/01/19 06/01/19 19:02 19:37 21:03 Temperature 98.1 F 98.2 F Pulse Rate 87 92 102 H Respiratory 16 14 20 Rate Blood Pressure 176/108 151/93 143/91 O2 Sat by Pulse 98 99 100 Oximetry Medical Decision Making - Medical Decision Making Very well-appearing 33-year-old female presenting for cough congestion. Chest x-ray clear no developed pneumonia. Patient has dry cough consistent with possible bronchitis per patient be given Tessalon Perles for symptomatic relief. Patient also given ibuprofen as needed for fevers. Discussed case attending fire at this time we're agreeable the patient is stable for discharge with outpatient primary care follow-up. Return parameters discussed patient was agreeable to this care plan discharge. Disposition Clinical Impression: Congestion of nasal sinus, Cough, Bronchitis Disposition: HOME SELF-CARE Condition: Good Instructions (If sedation given, give patient instructions): Acute Bronchitis (ED) Additional Instructions: Please use medication as discussed. Please follow-up with family doctor in the next 2 days. Please return to emergency room if the symptoms increase or worsen or for any other concerns. Prescriptions: Ibuprofen 800 mg PO 21 PRN #7 tablet PRN Reason: Fever Benzonatate [Tessalon Perles] 100 mg PO TID PRN 7 Days #21 cap PRN Reason: Cough Is patient prescribed a controlled substance at d/c from ED?: No Referrals: Korin Fletcher MD [Primary Care Provider] - 1-2 days Time of Disposition: 20:32
[2019-06-01 21:04] VITALS: BP 143/91; PULSE 102; RESP 20; TEMP 98.2
== END 2019-06-01 21:04 | disposition home or self-care (01) ==
LOC: EC 19:00
DX: J40 Bronchitis, not specified as acute or chronic (principal); R09.81 Nasal congestion; E11.9 Type 2 diabetes mellitus without complications; Z79.4 Long term (current) use of insulin; Z91.013 Allergy to seafood
CPT/HCPCS: 71046; 96372; 99283

== ENCOUNTER → 2021-12-04 | Outpatient (CLI) | payer OTHER ==
--- NOTE | 2021-12-04 18:49 | US ---
EXAMINATION TYPE: US kidneys/renal and bladder DATE OF EXAM: 12/04/2021 COMPARISON: None CLINICAL HISTORY: 36-year-old female N18.9 CHRONIC KIDNEY DISEASE, UNSPECIFIED. CKD. EXAM MEASUREMENTS: Right Kidney: 11.2 x 6.4 x 4.7 cm Left Kidney: 11.3 x 5.6 x 6.8 cm Right Kidney: No hydronephrosis or masses seen Left Kidney: No hydronephrosis or masses seen Bladder: Appears anechoic. Bilateral Jets seen: Yes IMPRESSION: No hydronephrosis.
== END | disposition home or self-care (01) ==
LOC: RADUSWWP 12:53
PROVIDERS: ATTEND Internal Medicine
DX: N18.9 Chronic kidney disease, unspecified (principal)
CPT/HCPCS: 76770

== ENCOUNTER → 2022-02-06 | Outpatient (CLI) | payer OTHER ==
[2022-02-06 15:55] LABS: Basophils % (A) 1 %; Eosinophils # (A) 0.1 k/uL (0-0.7); Eosinophils % (A) 2 %; HCT 30.6 % (34.0-46.0); HGB 9.6 gm/dL (11.4-16.0); Lymphocytes # (A) 1.4 k/uL (1.0-4.8); Lymphocytes % (A) 42 %; MCH 27.5 pg (25.0-35.0); MCHC 31.5 g/dL (31.0-37.0); MCV 87.3 fL (80.0-100.0); Mean Platelet Volume 7.5; Monocytes # (A) 0.2 k/uL (0-1.0); Monocytes % (A) 4 %; Neutrophils # (A) 1.7 k/uL (1.3-7.7); Neutrophils % (A) 49 %; Platelet Count 312 k/uL (150-450); WBC 3.4 k/uL (3.8-10.6)
[2022-02-06 16:08] LABS: INR 0.9 (<1.2); Partial Thromboplastin Time 24.1 sec (22.0-30.0); Prothrombin Time 10.1 sec (9.0-12.0)
[2022-02-06 16:13] LABS: Potassium 3.8 mmol/L (3.5-5.1)
== END | disposition home or self-care (01) ==
LOC: LABWHC1 15:20
PROVIDERS: ATTEND Internal Medicine
DX: R76.8 Other specified abnormal immunological findings in serum (principal)
CPT/HCPCS: 36415; 80051; 82565; 84520; 85025; 85610; 85730

== ENCOUNTER 2022-02-07 07:47 | Day surgery (SDC) | payer OTHER ==
[2022-02-07 08:28] LABS: Glucose,Whole Blood 172 mg/dL (70-110)
[2022-02-07 08:28] LABS: Glucose,Whole Blood 182 mg/dL (70-110)
[2022-02-07] MEDS ORDERED: DESMOPRESSIN ACETATE 20 MCG in SODIUM CHLORIDE 0.9% 50 ML IV ONE (09:00)
[2022-02-07 09:49] VITALS: TEMP 98.6
[2022-02-07] MEDS ORDERED: HYDROmorphone 0.5 MG/0.5 ML SYRINGE IVP STA (10:30)
[2022-02-07 13:18] VITALS: RESP 16
--- NOTE | 2022-02-07 13:25 | CT ---
EXAMINATION TYPE: CT biopsy renal RT DATE OF EXAM: 02/07/2022 COMPARISON: NONE HISTORY: Renal function CT DLP: 828 mGycm The procedure was explained to the patient. The risks, complications, benefits, and alternatives wer e discussed and any questions were answered. Informed consent was obtained. Patient was placed pron e on the CT table and prepped and draped in the usual sterile fashion. Utilizing CT guidance, an 18 gauge core biopsy needle access into the left renal cortex was achieved and three 18 gauge core samples were obtained. The patient was stable throughout the procedure and r emained stable upon discharge. IMPRESSION: Successful 18 gauge core biopsy of the kidney function.
[2022-02-07] MEDS ORDERED: HYDROcodone/APAP 5-325MG 1 EACH TAB PO PRN (14:18)
[2022-02-07 14:36] VITALS: BP 113/78; PULSE 65
== END 2022-02-07 15:35 | disposition home or self-care (01) ==
LOC: RADPROMAIN 07:47
PROVIDERS: ATTEND Internal Medicine
DX: I12.9 Hypertensive chronic kidney disease with stage 1 through stage 4 chronic kidney disease, or unspecified chronic kidney disease (principal); E11.22 Type 2 diabetes mellitus with diabetic chronic kidney disease; N18.32 Chronic kidney disease, stage 3b; D63.1 Anemia in chronic kidney disease; Z21 Asymptomatic human immunodeficiency virus [HIV] infection status; D50.9 Iron deficiency anemia, unspecified; Z91.013 Allergy to seafood; Z80.0 Family history of malignant neoplasm of digestive organs; Z83.3 Family history of diabetes mellitus; Z82.49 Family history of ischemic heart disease and other diseases of the circulatory system; Z79.4 Long term (current) use of insulin; Z79.899 Other long term (current) drug therapy; E55.9 Vitamin D deficiency, unspecified; N25.81 Secondary hyperparathyroidism of renal origin
CPT/HCPCS: 86900; 86901; 86850; 36415; 50200; 77012; J2597; J1170

== ENCOUNTER 2023-08-06 17:07 | Observation (INO) | payer OTHER ==
[2023-08-06 17:50] LABS: Basophils % (A) 0 %; Eosinophils % (A) 1 %; Hypochromasia Marked; Lymphocytes # (A) 1.7 k/uL (1.0-4.8); Lymphocytes % (A) 31 %; MCHC 30.3 g/dL (31.0-37.0); MCV 85.9 fL (80.0-100.0); Mean Platelet Volume 7.4; Monocytes # (A) 0.2 k/uL (0-1.0); Monocytes % (A) 4 %; Neutrophils # (A) 3.3 k/uL (1.3-7.7); Neutrophils % (A) 62 %; Platelet Count 374 k/uL (150-450); RBC 2.56 m/uL (3.80-5.40); RDW 14.9 % (11.5-15.5); WBC 5.4 k/uL (3.8-10.6)
[2023-08-06 17:55] LABS: ALT 11 U/L (4-34); AST 17 U/L (14-36); African American GFR (CKD) 58 (>60 ml/min/1.73 sqM); Albumin 3.3 g/dL (3.5-5.0); Alkaline Phosphatase 95 U/L (38-126); Anion Gap 4 mmol/L; Blood Urea Nitrogen 10 mg/dL (7-17); Calcium 9.1 mg/dL (8.4-10.2); Carbon Dioxide 23 mmol/L (22-30); Chloride 109 mmol/L (98-107); Glucose 291 mg/dL (74-99); Magnesium 1.6 mg/dL (1.6-2.3); Non-African American GFR(CKD) 50 (>60 ml/min/1.73 sqM); Potassium 4.2 mmol/L (3.5-5.1); Sodium 136 mmol/L (137-145); Total Bilirubin 0.2 mg/dL (0.2-1.3); Total Protein 6.1 g/dL (6.3-8.2)
[2023-08-06 17:58] LABS: INR 0.9 (<1.2); Prothrombin Time 9.7 sec (10.0-12.5)
[2023-08-06 18:00] LABS: HGB 6.7 gm/dL (11.4-16.0)
--- NOTE | 2023-08-06 18:00 | XR ---
EXAMINATION TYPE: XR chest 2V DATE OF EXAM: 08/06/2023 5:52 PM CLINICAL INDICATION:Female, 38 years old with history of Chest Pain; COMPARISON: Chest radiographs from 04/07/2023. TECHNIQUE: XR chest 2V Frontal and lateral views of the chest. FINDINGS: Lungs/Pleura: There is no evidence of pleural effusion, focal consolidation, or pneumothorax. Pulmonary vascularity: Unremarkable. Heart/mediastinum: Cardiomediastinal silhouette is unremarkable. Musculoskeletal: No acute osseous pathology. Other findings: None IMPRESSION: No acute cardiopulmonary disease/process.
[2023-08-06 18:18] LABS: Partial Thromboplastin Time 20.5 sec (22.0-30.0)
[2023-08-06] MEDS: NITROGLYCERIN SL TABS 0.4 MG TAB SUBLINGUAL PRN (18:27)
[2023-08-06] MEDS: ACETAMINOPHEN TAB 500 MG TAB PO STA (19:46)
--- NOTE | 2023-08-06 19:52 | CT ---
EXAMINATION TYPE: CT angio abdomen pelvis CT DLP: 1463.4 mGycm, Automated exposure control for dose reduction was used. DATE OF EXAM: 08/06/2023 7:09 PM COMPARISON: 02/07/2022 CLINICAL INDICATION:Female, 38 years old with history of GI bleed protocol, history of mass?; PHH, GI bleed protocol, history of mass. Renal disease and HIV positive. Abdominal pain. TECHNIQUE: Multiple thin slice sub-millimeter images were obtained after administration of contrast. CT angio abdomen pelvis CT Contrast: Contrast used:80 cc mL of Isovue 370 without and with IV Contrast, Oral contrast used: without Oral Contrast None FINDINGS: LOWER CHEST: No evidence of focal consolidation, pneumothorax or pleural effusion. LIVER: Unremarkable GALLBLADDER AND BILE DUCTS: Unremarkable. PANCREAS: Unremarkable. SPLEEN: Unremarkable. ADRENAL GLANDS: Unremarkable. KIDNEYS AND URETERS: No evidence of hydronephrosis or renal calculus. The ureters are unremarkable. PELVIS BLADDER: Unremarkable REPRODUCTIVE: Left tubal ligation clip present. Small amount of fluid within the endometrium. There i s soft tissue fullness in the labia majora.e series 201 image 95. Left ovarian cyst measuring up to 2 .7 cm. ABDOMEN & PELVIS STOMACH AND BOWEL: Evaluation of the gastrointestinal tract demonstrates no evidence of high density hemorrhage arterial phase or pooling of blood on delayed phases. No evidence of bowel obstruction. Th e appendix is within normal limits. PERITONEUM: No evidence of pneumoperitoneum or free fluid. VASCULATURE: No evidence of aortic aneurysm. No evidence for vascular occlusion. The origins of the a bdominal aorta are patent. No evidence for annual dilation, dissection. MUSCULOSKELETAL: No acute osseous abnormalities LYMPH NODES: No gross evidence for lymphadenopathy. SOFT TISSUE/ABDOMINAL WALL: Unremarkable IMPRESSION 1. No evidence for gastrointestinal hemorrhage. 2. Soft tissue fullness within the labia majora, right greater left correlate with direct visualizat ion to rule out infection and/or neoplasm.
[2023-08-06] MEDS ORDERED: ONDANSETRON 4 MG/2 ML VIAL IVP PRN (20:07)
[2023-08-06] MEDS ORDERED: ACETAMINOPHEN TAB 325 MG TAB PO PRN (20:07)
[2023-08-06] MEDS ORDERED: NALOXONE 0.4 MG/ML 1 ML VIAL IV PRN (20:07)
[2023-08-06] MEDS: ASPIRIN 81 MG PO STA (21:12)
[2023-08-06 21:37] LABS: Glucose,Whole Blood 278 mg/dL (70-110)
[2023-08-06] MEDS ORDERED: DEXTROSE 50% SYRINGE 50 ML IVP PRN ×2 (22:38)
[2023-08-06] MEDS: INSULIN ASPART (NovoLOG) 100 UNIT/ML VIAL SQ SCH (22:46)
--- NOTE | 2023-08-06 22:51 | ED ---
General Adult HPI - General Chief complaint: Chest Pain Stated complaint: Chest pain, dizziness, back and neck pain Time Seen by Provider: 08/06/23 17:59 Source: patient, RN notes reviewed, old records reviewed Mode of arrival: ambulatory Limitations: no limitations - History of Present Illness Initial comments: Patient is a 38-year-old female who presents emergency department complaining of chest pain, lightheadedness, ongoing for the last 3 days. 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 Also history of HIV positive but is currently in remission. Also history of hypertension and diabetes and renal disease. States her symptoms have been ongoing for 3 days. No known palliative or provocative factors. States it is constant. Denies any shortness of breath. Presents for further evaluation. Denies any nominal pain, nausea, vomiting. States she recently had heavy periods. States she also has a history of iron deficiency anemia. - Related Data Home Medications Medication Instructions Recorded Confirmed INSULIN LISPRO (humaLOG) [humaLOG] See Protocol SQ AC-TID 10/09/14 08/06/23 Insulin Glargine,Hum.rec.anlog 35 unit SQ DIRECTED 03/29/18 08/06/23 [Basaglar Kwikpen U-100] Ergocalciferol [Vitamin D2 (1250 1,250 mcg PO FR 01/28/22 08/06/23 Mcg = 20359 Iu)] Magnesium Oxide [Magox 400] 400 mg PO TID 03/07/23 08/06/23 Albuterol Inhaler [Ventolin Hfa 2 puff INHALATION RT-QID PRN 08/06/23 08/06/23 Inhaler] Bictegrav/Emtricit/Tenofov Ala 1 tab PO DAILY 08/06/23 08/06/23 [Biktarvy 50-200-25 mg Tablet] lisinopriL [Zestril] 20 mg PO BID 08/06/23 08/06/23 Allergies Allergy/AdvReac Type Severity Reaction Status Date / Time shellfish derived Allergy Anaphylaxis Verified 08/06/23 19:20 Review of Systems ROS Statement: Those systems with pertinent positive or pertinent negative responses have been documented in the HPI. Review of Systems: CONST: Denies fever EYES: Denies blurry vision ENT: Denies nasal congestion C/V: Endorses chest pain RESP: Denies shortness of breath GI: Denies abdominal pain : Denies dysuria SKIN: Denies rash. MSK: Denies joint pain. NEURO: Denies headache ROS Other: All systems not noted in ROS Statement are negative. Past Medical History Past Medical History: Diabetes Mellitus, Hypertension, Renal Disease Additional Past Medical History / Comment(s): HIV + History of Any Multi-Drug Resistant Organisms: None Reported Past Surgical History: Section Additional Past Surgical History / Comment(s): x 2. Past Anesthesia/Blood Transfusion Reactions: No Reported Reaction Past Psychological History: No Psychological Hx Reported Smoking Status: Never smoker Past Alcohol Use History: None Reported Past Drug Use History: None Reported - Past Family History Father Family Medical History: Cancer, Diabetes Mellitus Additional Family Medical History / Comment(s): Diabetes also on mother's side; Heart disease General Exam - General Exam Comments Initial Comments: General: Appears in no acute distress. HEAD: Normal with no signs of head trauma. EYES: PERRLA, EOMI, conjunctiva normal, no discharge. ENT: Hearing grossly intact, normal oropharynx. RESPIRATORY: Clear breath sounds bilaterally. No wheezes, rales, or rhonchi. C/V: Regular rate and rhythm. S1 and S2 auscultated, no edema, peripheral pulses 2+ and intact throughout ABD: Abd is soft, nontender, nondistended EXT: Normal range of motion, no obvious deformity SKIN: No rashes or lesions observed on exposed skin. NEURO: Alert and oriented x 4. Limitations: no limitations Course Vital Signs 08/06/23 08/06/23 08/06/23 17:12 18:29 19:47 Temperature 98.4 F Pulse Rate 88 86 92 Respiratory 16 18 18 Rate Blood Pressure 163/77 150/84 117/67 O2 Sat by Pulse 99 100 99 Oximetry 08/06/23 08/06/23 20:30 21:18 Temperature Pulse Rate 82 86 Respiratory 18 18 Rate Blood Pressure 125/67 139/83 O2 Sat by Pulse 99 99 Oximetry Procedures - [place] Protocol (Time Out) Nurse: Staci Manning Medical Decision Making - Medical Decision Making Was pt. sent in by a medical professional or institution (, PA, MUSIC COMPOSER, urgent care, hospital, or fdc...) When possible be specific @ -No Did you speak to anyone other than the patient for history (EMS, parent, family, police, friend...)? What history was obtained from this source @ -No Did you review nursing and triage notes (agree or disagree)? Why? @ -I reviewed and agree with nursing and triage notes Were old charts reviewed (outside hosp., previous admission, EMS record, old EKG, old radiological studies, urgent care reports/EKG's, fdc records)? Report findings @ -Old chart reviewed Differential Diagnosis (chest pain, altered mental status, abdominal pain women, abdominal pain men, vaginal bleeding, weakness, fever, dyspnea, syncope, headache, dizziness, GI bleed, back pain, seizure, CVA, palpatations, mental health, musculoskeletal)? @ -Differential Chest Pain: Stable Angina, Unstable Angina, STEMI, NSTEMI Aortic Dissection, Pneumothorax, Musculoskeletal, Esophageal Spasm GERD, Cholecystitis, Pancreatitis, Zoster, this is not meant to be an all-inclusive list. EKG interpreted by me (3pts min.). @ -As above X-rays interpreted by me (1pt min.). @ -Chest x-ray reveals no obvious acute cardiopulmonary process. CT interpreted by me (1pt min.). @ -CT GI bleed protocol negative for any obvious acute intra-abdominal process. There is an ovarian cyst. Patient also has the labia majora mass on the right. This is known to the patient. U/S interpreted by me (1pt. min.). @ -None done What testing was considered but not performed or refused? (CT, X-rays, U/S, labs)? Why? @ -None What meds were considered but not given or refused? Why? @ -None Did you discuss the management of the patient with other professionals (professionals i.e. , PA, MUSIC COMPOSER, lab, RT, psych nurse, social insurance analyst, remote sensing technologist, teacher, property disposal officer, major case detective)? Give summary @ -Discussed with Dr. Gan who accepted the admission. Was smoking cessation discussed for >3mins.? @ -No Was critical care preformed (if so, how long)? @ -Yes, 36 minutes. Were there social determinants of health that impacted care today? How? (Homelessness, low income, unemployed, alcoholism, drug addiction, tr ansportation, low edu. Level, literacy, decrease access to med. care, fci, rehab)? @ -No Was there de-escalation of care discussed even if they declined (Discuss DNR or withdrawal of care, Hospice)? DNR status @ -No What co-morbidities impacted this encounter? (DM, HTN, Smoking, COPD, CAD, Cancer, CVA, ARF, Chemo, Hep., AIDS, mental health diagnosis, sleep apnea, morbid obesity)? @ -Right labia majora mass that is intermittently bleeding. Was patient admitted / discharged? Hospital course, mention meds given and route, prescriptions, significant lab abnormalities, going to OR and other per tinent info. @ -Based on the patient's presentation and physical exam, presents with chest pain. We will obtain cardiac workup. Patient was in agreement with this plan. Workup was started in triage. Patient given an aspirin, as well as a nitro. Vital signs are within acceptable limits. EKG shows no signs of acute ischemia. Patient had no significant improvement with nitro. Chest x-ray shows no obvious acute cardiopulmonary process. Patient's laboratory studies remarkable for a anemia of 6.7. This is below her baseline. D-dimer within normal limits. Troponin undetectable. CKD present. At this time I did discuss with the patient her anemia which is the only remarkable finding on workup thus far. 1 unit packed red blood cells as ordered for symptomatic anemia. She will be transfused. She was in agreement this plan. I did discuss with her sources of bleeding and she states she recently had a heavy menstrual cycle and has also been having intermittent bleeding from the labia majora mass. No obvious GI bleeding that she is aware of. We will obtain CT abdomen pelvis for further evaluation to rule out any possible GI bleeding or abnormality. She was in agreement this plan. CT revealed no obvious source of GI bleed. Redemonstrated the labia majora mass. I discussed the results with the patient. She will be admitted for troponin trending, cardiology evaluation, as well as DIRECTOR OF SERVICES evaluation. She was in agreement this plan. Will repeat morning labs. Patient is resting comfortably at this time and is feeling improved. I spoke with the admitting physician, Dr. Gan who accepted the admission. Undiagnosed new problem with uncertain prognosis? @ -No Drug Therapy requiring intensive monitoring for toxicity (Heparin, Nitro, Insulin, Cardizem)? @ -No Were any procedures done? @ -No Diagnosis/symptom? @ -Symptomatic anemia, chest pain, labia majora mass Acute, or Chronic, or Acute on Chronic? @ -Acute Uncomplicated (without systemic symptoms) or Complicated (systemic symptoms)? @ -Complicated Side effects of treatment? @ -No Exacerbation, Progression, or Severe Exacerbation? @ -No Poses a threat to life or bodily function? How? (Chest pain, USA, SD, pneumonia, PE, COPD, DKA, ARF, appy, cholecystitis, CVA, Diverticulitis, Homicidal, Suicidal, threat to staff... and all critical care pts) @ -Yes - Lab Data Result diagrams: 08/06/23 17:29 08/06/23 17:29 Lab Results 08/06/23 08/06/23 08/06/23 Range/Units 17:29 17:29 17:29 WBC 5.4 (3.8-10.6) k/uL RBC 2.56 L (3.80-5.40) m/uL Hgb 6.7 L* (11.4-16.0) gm/dL Hct 22.0 L (34.0-46.0) % MCV 85.9 (80.0-100.0) fL MCH 26.0 (25.0-35.0) pg MCHC 30.3 L (31.0-37.0) g/dL RDW 14.9 (11.5-15.5) % Plt Count 374 (150-450) k/uL MPV 7.4 Neutrophils % 62 % Lymphocytes % 31 % Monocytes % 4 % Eosinophils % 1 % Basophils % 0 % Neutrophils # 3.3 (1.3-7.7) k/uL Lymphocytes # 1.7 (1.0-4.8) k/uL Monocytes # 0.2 (0-1.0) k/uL Eosinophils # 0.0 (0-0.7) k/uL Basophils # 0.0 (0-0.2) k/uL Hypochromasia Marked PT 9.7 L (10.0-12.5) sec INR 0.9 (<1.2) APTT 20.5 L (22.0-30.0) sec D-Dimer (<0.60) mg/L FEU Sodium 136 L (137-145) mmol/L Potassium 4.2 (3.5-5.1) mmol/L Chloride 109 H (98-107) mmol/L Carbon Dioxide 23 (22-30) mmol/L Anion Gap 4 mmol/L BUN 10 (7-17) mg/dL Creatinine 1.34 H (0.52-1.04) mg/dL Est GFR (CKD-EPI)AfAm 58 (>60 ml/min/1.73 sqM) Est GFR (CKD-EPI)NonAf 50 (>60 ml/min/1.73 sqM) Glucose 291 H (74-99) mg/dL Calcium 9.1 (8.4-10.2) mg/dL Magnesium 1.6 (1.6-2.3) mg/dL Total Bilirubin 0.2 (0.2-1.3) mg/dL AST 17 (14-36) U/L ALT 11 (4-34) U/L Alkaline Phosphatase 95 (38-126) U/L Troponin I (0.000-0.034) ng/mL Total Protein 6.1 L (6.3-8.2) g/dL Albumin 3.3 L (3.5-5.0) g/dL Blood Type Blood Type Recheck Bld Type Recheck Status Antibody Screen Crossmatch Spec Expiration Date 08/06/23 08/06/23 08/06/23 Range/Units 17:29 17:29 18:35 WBC (3.8-10.6) k/uL RBC (3.80-5.40) m/uL Hgb (11.4-16.0) gm/dL Hct (34.0-46.0) % MCV (80.0-100.0) fL MCH (25.0-35.0) pg MCHC (31.0-37.0) g/dL RDW (11.5-15.5) % Plt Count (150-450) k/uL MPV Neutrophils % % Lymphocytes % % Monocytes % % Eosinophils % % Basophils % % Neutrophils # (1.3-7.7) k/uL Lymphocytes # (1.0-4.8) k/uL Monocytes # (0-1.0) k/uL Eosinophils # (0-0.7) k/uL Basophils # (0-0.2) k/uL Hypochromasia PT (10.0-12.5) sec INR (<1.2) APTT (22.0-30.0) sec D-Dimer 0.34 (<0.60) mg/L FEU Sodium (137-145) mmol/L Potassium (3.5-5.1) mmol/L Chloride (98-107) mmol/L Carbon Dioxide (22-30) mmol/L Anion Gap mmol/L BUN (7-17) mg/dL Creatinine (0.52-1.04) mg/dL Est GFR (CKD-EPI)AfAm (>60 ml/min/1.73 sqM) Est GFR (CKD-EPI)NonAf (>60 ml/min/1.73 sqM) Glucose (74-99) mg/dL Calcium (8.4-10.2) mg/dL Magnesium (1.6-2.3) mg/dL Total Bilirubin (0.2-1.3) mg/dL AST (14-36) U/L ALT (4-34) U/L Alkaline Phosphatase (38-126) U/L Troponin I <0.012 (0.000-0.034) ng/mL Total Protein (6.3-8.2) g/dL Albumin (3.5-5.0) g/dL Blood Type A Positive Blood Type Recheck A Pos Bld Type Recheck Status No Antibody Screen NEGATIVE Crossmatch See Detail Spec Expiration Date 08/09/20232334 - EKG Data -: EKG Interpreted by Me EKG Comments: 12-lead Electrocardiogram Interpretation Note EKG was reviewed and interpreted by myself. 12-lead ECG performed at 1721 is interpreted by me as revealing normal sinus rhythm at a rate of 87 beats per minute. [place] is normal. [place] interval is 124 ms, QRS duration is 82 ms, QTc is 386 ms. Slightly T wave inversion in lead III.. There were no ST or T wave abnormalities to suggest myocardial ischemia or injury. R wave progression across the precordium was satisfactory. By my interpretation this EKG is non- diagnostic for acute ischemia. Disposition Clinical Impression: Chest pain, Symptomatic anemia Narrative: Lee majora mass Disposition: ADMITTED IP TO THIS [facility] Condition: Stable Time of Disposition: 20:35
[2023-08-06] MEDS ORDERED: ALBUTEROL NEBULIZED 2.5 MG/3 ML INHALATION PRN (22:52)
[2023-08-07 03:29] LABS: % Iron Saturation 18.28 (12.00-45.00)
[2023-08-07 06:05] LABS: Glucose,Whole Blood 131 mg/dL (70-110)
[2023-08-07 07:47] LABS: Basophils % (A) 0 %; Eosinophils # (A) 0.1 k/uL (0-0.7); Eosinophils % (A) 1 %; HCT 26.5 % (34.0-46.0); Hypochromasia Marked; Lymphocytes # (A) 1.5 k/uL (1.0-4.8); Lymphocytes % (A) 23 %; MCHC 31.4 g/dL (31.0-37.0); Mean Platelet Volume 7.3; Monocytes # (A) 0.3 k/uL (0-1.0); Monocytes % (A) 5 %; Neutrophils # (A) 4.5 k/uL (1.3-7.7); Neutrophils % (A) 70 %; Platelet Count 358 k/uL (150-450); Poikilocytosis Slight; RBC 3.08 m/uL (3.80-5.40); RDW 15.2 % (11.5-15.5); WBC 6.5 k/uL (3.8-10.6)
[2023-08-07 08:02] LABS: African American GFR (CKD) 64 (>60 ml/min/1.73 sqM); Anion Gap 7 mmol/L; Blood Urea Nitrogen 10 mg/dL (7-17); Calcium 9.1 mg/dL (8.4-10.2); Carbon Dioxide 22 mmol/L (22-30); Chloride 111 mmol/L (98-107); Glucose 129 mg/dL (74-99); Non-African American GFR(CKD) 55 (>60 ml/min/1.73 sqM); Potassium 4.2 mmol/L (3.5-5.1); Sodium 140 mmol/L (137-145)
[2023-08-07 08:11] LABS: HGB 8.3 gm/dL (11.4-16.0)
[2023-08-07] MEDS: MAGNESIUM OXIDE 400 MG TAB PO SCH (08:44)
[2023-08-07] MEDS: lisinopriL 20 MG TAB PO SCH (08:44)
[2023-08-07] MEDS: NON FORMULARY DRUG (Bictegrav/Emtricit/Tenofov Ala [Biktarvy 50-200-25 Mg Tablet] 1 EACH T PO SCH (08:45)
[2023-08-07 09:59] VITALS: RESP 16
[2023-08-07] MEDS: HYDROmorphone 0.5 MG/0.5 ML SYRINGE IVP PRN (10:08)
[2023-08-07 11:32] VITALS: TEMP 98.2
[2023-08-07 11:37] LABS: Glucose,Whole Blood 228 mg/dL (70-110)
--- NOTE | 2023-08-07 12:19 | P.CRDCN ---
History of Present Illness History of present illness: HISTORY OF PRESENT ILLNESS: This is a 38-year-old female with a past medical history significant for known labial mass, hypertension, diabetes, chronic kidney disease, and HIV positive. Kirk carmenzasherley does not follow with a chromium plater. We have been asked to see the patient in consultation for chest pain. Patient examined at the bedside. Patient states she has been having chest pain for the past 3 days. She states the pain is in the middle of her chest. She states the pain has been constant. She states nothing really makes the pain better or worse. She denies any radiation of the pain. She also reports feeling dizzy over the past few days as well. Denies any syncopal episodes. She was given sublingual nitro however this made her dizziness worse. She states she has had no further episodes of chest pain or discomfort. She denies any shortness of breath. The patient was found to be anemic with a hemoglobin of 6.7. She received RBC transfusion. Repeat hemoglobin 8.3. The patient does have a large labial mass. She states that this has been present for about a year and she has never had any workup for it. She states it has not really bothered her until recently when it has started to become painful and will occasionally bleed. DIAGNOSTICS: - EKG reveals sinus mechanism with LVH. T wave inversions in lead III. No signs of acute ischemia. - Chest xray negative for acute process. - Abdomen/pelvis CTA: No evidence for GI hemorrhage. Soft tissue fullness withi n the labia majora, right greater than left, correlate with direct visualization to rule out infection and/or neoplasm - Laboratory data: WBC 6.5. Hemoglobin 6.7. Repeat 8.3. Platelet count 358. Sodium 140. Potassium 4.2. BUN 10. Creatinine 1.24. Troponin negative x 3 - Current home cardiac medications include lisinopril 20 mg twice a day. - No previous echocardiogram, stress test, or cardiac catheterization available in EMR for review REVIEW OF SYSTEMS: At the time of my exam: CONSTITUTIONAL: Denies fever or chills. HEENT: Denies blurred vision, vision changes, or eye pain. Denies hemoptysis CARDIOVASCULAR: Denies chest pain. Denies orthopnea. Denies PND. Denies palpitations RESPIRATORY: Denies shortness of breath. GASTROINTESTINAL: Denies abdominal pain. Denies nausea or vomiting. HEMATOLOGIC: Denies bleeding disorders. GENITOURINARY: Denies any blood in urine. SKIN: Denies pruitis. Denies rash. Reports labial mass. PHYSICAL EXAM: VITAL SIGNS: Reviewed. GENERAL: Well-developed in no acute distress. HEENT: Head is normocephalic. Pupils are equal, round. Sclerae anicteric. Mucous membranes of the mouth are moist. Neck supple. No JVD or thyromegaly LUNGS: Respirations even and unlabored. Lungs essentially clear to auscultation bilaterally. HEART: Regular rate and rhythm. S1 and S2 heard. Systolic murmur noted. ABDOMEN: Soft. Nondistended. Nontender. EXTREMITIES: Normal range of motion. No clubbing or cyanosis. Peripheral pulses intact. No lower extremity edema NEUROLOGIC: Awake and alert. Oriented x 3. SKIN: Labial mass not examined ASSESSMENT: Chest pain, atypical, troponin negative x 3, may be due to anemia Anemia, hemoglobin 6.7 on admission, status post RBC transfusion Labial mass with intermediate bleeding Hypertension Diabetes Chronic kidney disease History of HIV PLAN: An acute coronary event has been ruled out Obtain 2D echo to assess cardiac structure and function Resume home cardiac medications Patient to undergo biopsy of labial mass today by OBGYN No plans for stress test at this time. Will consider stress testing once patien t's hemoglobin is stable and greater than 10. This may be performed on an outpatient basis. Patient is currently stable from a cardiac perspective with no further inpatient recommendations Nurse practitioner note has been reviewed by physician. Signing provider agrees with the documented findings, assessment, and plan of care documented by UTILITY PERSON as a scribe. Past Medical History Past Medical History: Diabetes Mellitus, Hypertension, Renal Disease Additional Past Medical History / Comment(s): HIV + History of Any Multi-Drug Resistant Organisms: None Reported Past Surgical History: Section Additional Past Surgical History / Comment(s): x 2. Past Anesthesia/Blood Transfusion Reactions: No Reported Reaction Past Psychological History: No Psychological Hx Reported Smoking Status: Never smoker Past Alcohol Use History: None Reported Past Drug Use History: None Reported - Past Family History Father Family Medical History: Cancer, Diabetes Mellitus Additional Family Medical History / Comment(s): Diabetes also on mother's side; Heart disease Medications and Allergies Home Medications Medication Instructions Recorded Confirmed Type INSULIN LISPRO (humaLOG) [humaLOG] See Protocol SQ AC-TID 10/09/14 08/06/23 History Insulin Glargine,Hum.rec.anlog 35 unit SQ DIRECTED 03/29/18 08/06/23 History [Sheree Garcia U-100] Ergocalciferol [Vitamin D2 (1250 1,250 mcg PO FR 01/28/22 08/06/23 History Mcg = 33360 Iu)] Magnesium Oxide [Magox 400] 400 mg PO TID 03/07/23 08/06/23 History Albuterol Inhaler [Ventolin Hfa 2 puff INHALATION RT-QID PRN 08/06/23 08/06/23 History Inhaler] Bictegrav/Emtricit/Tenofov Ala 1 tab PO DAILY 08/06/23 08/06/23 History [Biktarvy 50-200-25 mg Tablet] lisinopriL [Zestril] 20 mg PO BID 08/06/23 08/06/23 History Allergies Allergy/AdvReac Type Severity Reaction Status Date / Time shellfish derived Allergy Anaphylaxis Verified 08/06/23 19:20 Physical Exam Vitals: Vital Signs Temp Pulse Pulse Resp BP BP Pulse Ox 08/07/23 08:39 98.4 F 80 16 146/85 100 08/07/23 04:00 97.9 F 84 19 142/71 100 08/06/23 23:55 98.1 F 68 19 138/68 100 08/06/23 23:39 98.1 F 68 19 138/68 100 08/06/23 22:14 98.0 F 64 16 138/64 100 08/06/23 22:08 98.1 F 74 19 157/82 100 08/06/23 21:54 98.1 F 82 18 146/85 100 08/06/23 21:44 98.3 F 73 19 134/79 100 08/06/23 21:18 86 18 139/83 99 08/06/23 20:30 82 18 125/67 99 08/06/23 19:47 92 18 117/67 99 08/06/23 18:29 86 18 150/84 100 08/06/23 17:12 98.4 F 88 16 163/77 99 Intake and Output 02/07/24 02/08/24 02/08/24 22:59 06:59 14:59 Intake Total 0 310 120 Balance 0 310 120 Intake: Oral 120 Blood Product 0 310 Rc As-1 Unit 0 310 [id number] Other: Voiding Method Toilet Toilet # Voids 1 1 # Bowel Movements 0 Weight 72.575 kg Results 08/07/23 06:46 08/07/23 06:46 Cardiac Enzymes 08/06/23 08/06/23 08/06/23 Range/Units 17:29 17:29 20:40 AST 17 (14-36) U/L Troponin I <0.012 <0.012 (0.000-0.034) ng/mL 08/07/23 Range/Units 00:47 AST (14-36) U/L Troponin I <0.012 (0.000-0.034) ng/mL Coagulation 08/06/23 Range/Units 17:29 PT 9.7 L (10.0-12.5) sec APTT 20.5 L (22.0-30.0) sec CBC 08/06/23 08/07/23 Range/Units 17:29 06:46 WBC 5.4 6.5 (3.8-10.6) k/uL RBC 2.56 L 3.08 L (3.80-5.40) m/uL Hgb 6.7 L* 8.3 L D (11.4-16.0) gm/dL Hct 22.0 L 26.5 L (34.0-46.0) % Plt Count 374 358 (150-450) k/uL Comprehensive Metabolic Panel 08/06/23 08/07/23 Range/Units 17:29 06:46 Sodium 136 L 140 (137-145) mmol/L Potassium 4.2 4.2 (3.5-5.1) mmol/L Chloride 109 H 111 H (98-107) mmol/L Carbon Dioxide 23 22 (22-30) mmol/L BUN 10 10 (7-17) mg/dL Creatinine 1.34 H 1.24 H (0.52-1.04) mg/dL Glucose 291 H 129 H (74-99) mg/dL Calcium 9.1 9.1 (8.4-10.2) mg/dL AST 17 (14-36) U/L ALT 11 (4-34) U/L Alkaline Phosphatase 95 (38-126) U/L Total Protein 6.1 L (6.3-8.2) g/dL Albumin 3.3 L (3.5-5.0) g/dL Current Medications Generic Name Dose Route Start Last Admin Trade Name Freq PRN Reason Stop Dose Admin Acetaminophen 650 mg 08/06/23 20:07 Acetaminophen Tab 325 Mg Tab PO Q6HR PRN Mild Pain or Fever > 100.5 Hydrocodone Bitart/Acetaminophen 1 each 08/07/23 09:55 Hydrocodone/Apap 5-325mg 1 Each Tab PO Q6HR PRN Pain Albuterol Sulfate 2.5 mg 08/06/23 22:52 Albuterol Nebulized 2.5 Mg/3 Ml INHALATION RT-QID PRN Shortness Of Breath Dextrose/Water 25 ml 08/06/23 22:38 Dextrose 50% Syringe 50 Ml IVP PER PROTOCOL PRN Hypoglycemia Protocol Dextrose/Water 50 ml 08/06/23 22:38 Dextrose 50% Syringe 50 Ml IVP PER PROTOCOL PRN Hypoglycemia Protocol Hydromorphone HCl 0.5 mg 08/07/23 09:55 08/07/23 10:08 Hydromorphone 0.5 Mg/0.5 Ml Syringe IVP 0.5 mg Q4HR PRN Administration Pain Insulin Aspart 0 unit 08/06/23 21:00 08/07/23 06:14 Insulin Aspart (Novolog) 100 Unit/Ml Vial SQ Not Given ACHS [facility] Protocol Lisinopril 20 mg 08/07/23 09:00 08/07/23 08:44 Lisinopril 20 Mg Tab PO 20 mg BID MIKO Administration Magnesium Oxide 400 mg 08/07/23 09:00 08/07/23 08:44 Magnesium Oxide 400 Mg Tab PO 400 mg TID MIKO Administration Naloxone HCl 0.2 mg 08/06/23 20:07 Naloxone 0.4 Mg/Ml 1 Ml Vial IV Q2M PRN Opioid Reversal Nitroglycerin 0.4 mg 08/06/23 18:03 08/06/23 18:27 Nitroglycerin Sl Tabs 0.4 Mg Tab SUBLINGUAL 0.4 mg Q5M PRN Administration Chest Pain Non-Formulary Medication 1 tab 08/07/23 09:00 08/07/23 08:45 Bictegrav/Emtricit/Tenofov Ala [Biktarvy 50-200-25 Mg Tablet] PO Not Given DAILY MIKO Ondansetron HCl 4 mg 08/06/23 20:07 Ondansetron 4 Mg/2 Ml Vial IVP Q8HR PRN Nausea And Vomiting Intake and Output 08/06/23 08/07/23 08/07/23 22:59 06:59 14:59 Intake Total 0 310 120 Balance 0 310 120 Intake: Oral 120 Blood Product 0 310 Rc As-1 Unit 0 310 [id number] Other: Voiding Method Toilet Toilet # Voids 1 1 # Bowel Movements 0 Weight 72.575 kg 08/07/23 06:46 08/07/23 06:46
[2023-08-07] MEDS: LIDOCAINE 1% INJ 10MG/ML (20 ML MDV) SQ ONE (12:27)
--- NOTE | 2023-08-07 12:55 | HP ---
HISTORY AND PHYSICAL CHIEF COMPLAINTS: Chest pain, dizziness, back pain, neck pain, and multiple symptomatology. HISTORY OF PRESENT ILLNESS: This is a 38-year-old woman with a past medical history of HIV and multiple other complex medical issues, admitted with chest pain, dizziness, palpitation. The patient also had swelling in the labial area, bleeding was suspected. Hemoglobin is 8.3 at this time. The patient was transfused 1 unit. The admission hemoglobin was found to be 6.7. There is no history of any fever, rigors, or chills. OB-WEB SERVICES DEVELOPER is evaluating the patient. Glucose is also elevated. The chest pain is mostly center in the left part of the chest, which is without any radiation or other associated symptoms. PAST MEDICAL HISTORY: Reviewed include HIV, rest of the history and chart is also reviewed. HOME MEDICATIONS: Zestril, dose and rest of medications noted. ALLERGIES: Shellfish. FAMILY HISTORY: History of diabetes mellitus in the family. SOCIAL HISTORY: No history of smoking. No history of alcohol. REVIEW OF SYSTEMS: A 14-point review is negative except as mentioned earlier. PHYSICAL EXAMINATION: VITAL SIGNS: Pulse is 80, blood pressure is 140/85, respirations 16. HEENT: Conjunctivae pale. NECK: No jugular venous distention. CARDIOVASCULAR: S1, S2 muffled. RESPIRATIONS: Clear to auscultation. ABDOMEN: Soft, nontender. LEGS: No edema. No swelling. NERVOUS SYSTEM: No focal deficit. SKIN: No ulcer, rash, bleeding. JOINTS: No active deforming arthropathy. LABORATORY DATA: Hemoglobin 8.2, rest of the labs are noted. ASSESSMENT: 1. Symptomatic anemia. 2. Chest pain for evaluation, rule out coronary disease. 3. HIV positive. 4. Right labial mass with intermittent bleeding. 5. Diabetes mellitus, type 2. 6. Hypertension. 7. History of renal disease. 8. Multiple complex medical issues. RECOMMENDATIONS AND DISCUSSION: This 38-year-old woman presented with multiple complex medical issues, we will monitor the patient closely. The patient has been transfused 1 unit. Hemoglobin is improved. I would recommend cardiology consultation, full cardiac workup to rule out the possibility of coronary disease, otherwise OB-WEB SERVICES DEVELOPER evaluation and possible biopsy. Monitor hemoglobin closely. Iron studies most likely the anemia secondary to acute on chronic blood loss anemia. We will resume the home medications and continue to monitor. Further recommendations to follow. MMODL / IJN: [id number] /
[2023-08-07] MEDS: HYDROcodone/APAP 5-325MG 1 EACH TAB PO PRN (13:04)
[2023-08-07 14:36] VITALS: BMI 30.2
--- NOTE | 2023-08-07 14:38 | P.OBCN ---
History of Present Illness Consult date: 08/07/23 Reason for consult: other (vulvar mass) Chief complaint: Vulvar mass History of present illness: Ms. Chu is a 38 year old with a past medical history significant for chronic hypertension, chronic kidney disease, poorly controlled type 2 diabetes (x15 years), and HIV (patient states most recent viral count was undetectable) who presented to the ER last night with symptoms of anemia and was found to have a hemoglobin of 6.7. The patient was complaining of chest pain as well, for which cardiology has been consulted. During admission, a large, purulent, fungating vulvar mass was noted. The patient states that this mass has been on the vulva for approximately 1 year and has progressively grown in size. The mass is painful and bleeds often. The mass is not itchy. The patient denies fevers or chills. The patient states her last hemoglobin A1C may have been around 10%. The patient follows with Dr. Graham as her PCP. Obstetric/Gynecologic history: 2 full-term sections. LMP 2 weeks ago. Regular monthly menses with periods that last 5 days. Periods are described as heavy. Past Medical History: HIV, T2DM, HTN, Chronic Kidney Disease Medications: Lisinopril, Biktarvy, Lantus, Humalog Surgical History: x2, tubal ligation Social History: Patient denies alcohol, recreational drug, and tobacco use Allergies: NKDA Past Medical History Past Medical History: Diabetes Mellitus, Hypertension, Renal Disease Additional Past Medical History / Comment(s): HIV + History of Any Multi-Drug Resistant Organisms: None Reported Past Surgical History: Section Additional Past Surgical History / Comment(s): x 2. Past Anesthesia/Blood Transfusion Reactions: No Reported Reaction Past Psychological History: No Psychological Hx Reported Smoking Status: Never smoker Past Alcohol Use History: None Reported Past Drug Use History: None Reported - Past Family History Father Family Medical History: Cancer, Diabetes Mellitus Additional Family Medical History / Comment(s): Diabetes also on mother's side; Heart disease Medications and Allergies Home Medications Medication Instructions Recorded Confirmed Type INSULIN LISPRO (humaLOG) [humaLOG] See Protocol SQ AC-TID 10/09/14 08/06/23 History Insulin Glargine,Hum.rec.anlog 35 unit SQ DIRECTED 03/29/18 08/06/23 History [Sheree Garcia U-100] Ergocalciferol [Vitamin D2 (1250 1,250 mcg PO FR 01/28/22 08/06/23 History Mcg = 23995 Iu)] Magnesium Oxide [Magox 400] 400 mg PO TID 03/07/23 08/06/23 History Albuterol Inhaler [Ventolin Hfa 2 puff INHALATION RT-QID PRN 08/06/23 08/06/23 History Inhaler] Bictegrav/Emtricit/Tenofov Ala 1 tab PO DAILY 08/06/23 08/06/23 History [Biktarvy 50-200-25 mg Tablet] lisinopriL [Zestril] 20 mg PO BID 08/06/23 08/06/23 History Allergies Allergy/AdvReac Type Severity Reaction Status Date / Time shellfish derived Allergy Anaphylaxis Verified 08/06/23 19:20 Exam Vital Signs Temp Pulse Pulse Resp BP BP Pulse Ox 08/07/23 04:00 97.9 F 84 19 142/71 100 08/06/23 23:55 98.1 F 68 19 138/68 100 08/06/23 23:39 98.1 F 68 19 138/68 100 08/06/23 22:14 98.0 F 64 16 138/64 100 08/06/23 22:08 98.1 F 74 19 157/82 100 08/06/23 21:54 98.1 F 82 18 146/85 100 08/06/23 21:44 98.3 F 73 19 134/79 100 08/06/23 21:18 86 18 139/83 99 08/06/23 20:30 82 18 125/67 99 08/06/23 19:47 92 18 117/67 99 08/06/23 18:29 86 18 150/84 100 08/06/23 17:12 98.4 F 88 16 163/77 99 Intake and Output 08/06/23 08/07/23 08/07/23 22:59 06:59 14:59 Intake Total 0 310 Balance 0 310 Intake: Blood Product 0 310 Rc As-1 Unit 0 310 [id number] Other: Voiding Method Toilet # Voids 1 Weight 72.575 kg Focused physical exam is performed. This is a healthy-appearing female in no apparent distress. Breathing is non-labored. Abdomen is soft and non-tender. On external pelvic exam there is a large 10+ centimeter fungating vulvar mass encompassing the entirety of the right labia majora and a portion of the left labia majora. Portions of the mass appear to be necrotic. A biopsy is performed, please see procedure note. Extremities are non-tender and non-edematous. Results Result Diagrams: 08/07/23 06:46 08/07/23 06:46 Abnormal Lab Results - Last 24 Hours (Table) 08/06/23 08/06/23 08/06/23 Range/Units 17:29 17:29 17:29 RBC 2.56 L (3.80-5.40) m/uL Hgb 6.7 L* (11.4-16.0) gm/dL Hct 22.0 L (34.0-46.0) % MCHC 30.3 L (31.0-37.0) g/dL PT 9.7 L (10.0-12.5) sec APTT 20.5 L (22.0-30.0) sec Sodium 136 L (137-145) mmol/L Chloride 109 H (98-107) mmol/L Creatinine 1.34 H (0.52-1.04) mg/dL Glucose 291 H (74-99) mg/dL POC Glucose (mg/dL) (70-110) mg/dL Transferrin (204.0-354.0) mg/dL Total Protein 6.1 L (6.3-8.2) g/dL Albumin 3.3 L (3.5-5.0) g/dL Crossmatch 08/06/23 08/06/23 08/06/23 Range/Units 18:35 20:40 21:33 RBC (3.80-5.40) m/uL Hgb (11.4-16.0) gm/dL Hct (34.0-46.0) % MCHC (31.0-37.0) g/dL PT (10.0-12.5) sec APTT (22.0-30.0) sec Sodium (137-145) mmol/L Chloride (98-107) mmol/L Creatinine (0.52-1.04) mg/dL Glucose (74-99) mg/dL POC Glucose (mg/dL) 278 H (70-110) mg/dL Transferrin 199.0 L (204.0-354.0) mg/dL Total Protein (6.3-8.2) g/dL Albumin (3.5-5.0) g/dL Crossmatch See Detail 08/07/23 08/07/23 08/07/23 Range/Units 05:54 06:46 06:46 RBC 3.08 L (3.80-5.40) m/uL Hgb 8.3 L D (11.4-16.0) gm/dL Hct 26.5 L (34.0-46.0) % MCHC (31.0-37.0) g/dL PT (10.0-12.5) sec APTT (22.0-30.0) sec Sodium (137-145) mmol/L Chloride 111 H (98-107) mmol/L Creatinine 1.24 H (0.52-1.04) mg/dL Glucose 129 H (74-99) mg/dL POC Glucose (mg/dL) 131 H (70-110) mg/dL Transferrin (204.0-354.0) mg/dL Total Protein (6.3-8.2) g/dL Albumin (3.5-5.0) g/dL Crossmatch Assessment and Plan Assessment: 38 year old with 10 centimeter fungating vulvar mass Plan: Vulvar mass suspicious for vulvar cancer. Biopsy was performed 08/07 and sent to pathology. Patient will follow up in the office 1-3 days after discharge to review pathology findings and for likely referral to Gynecology Oncology for surgical management. The patient is stable for discharge from OBGYN standpoint. Please reach out with any further questions. Thank you for this consult. Time with Patient: Greater than 30 (60 minutes)
--- NOTE | 2023-08-07 14:41 | P.PCN ---
Date of Procedure: 08/07/23 Preoperative Diagnosis: 10 centimeter fungating vulvar mass Postoperative Diagnosis: Same Procedure(s) Performed: Vulvar Biopsy Implants: None Anesthesia: local Surgeon: Jeannie Betancourt Estimated Blood Loss (ml): 20 IV fluids (ml): 0 Urine output (ml): 0 Pathology: other (vulvar biopsy of left labia majora at 3 o'clock) Condition: stable Disposition: floor Indications for Procedure: Ms. Chu is a 38 year old with a 1-year history of enlarging, painful, bleeding vulvar mass. Biopsy is recommended today to rule out vulvar cancer. The risks, benefits, and alternatives to biopsy are discussed with the patient including risk of bleeding and infection. The patient agrees to the biopsy and all questions are answered. Operative Findings: A small portion of the vulvar mass is removed with a scalpel and placed in formalin. Description of Procedure: The mass is prepared with betadine. 5 mL of 1% lidocaine are injected into the vulvar mass for local anesthesia. The scalpel and pick ups are used to remove a small wedge of the mass. This is placed in formalin and sent to pathology. Monsel's solution is then generously applied to the area for hemostasis. Hemostasis is found to be adequate. A clean pad and mesh underpants are then placed on the patient. The patient tolerated the procedure well.
[2023-08-07] MEDS ORDERED: HYDROmorphone 0.5 MG/0.5 ML SYRINGE IVP PRN (14:49)
[2023-08-07 16:07] VITALS: BP 120/81; PULSE 78
[2023-08-07 16:53] LABS: Glucose,Whole Blood 239 mg/dL (70-110)
--- NOTE | 2023-08-07 18:51 | P.DS ---
Providers Date of admission: 08/06/23 20:09 Expected date of discharge: 08/07/23 Attending physician: Caesar Gan MD Consults: 08/06/23 20:07 Consult Physician Routine Consulting Provider: [facility] Consult Reason/Comments: chest pain Do you want consulting provider notified?: Yes Consult Physician Routine Consulting Provider: Jeannie Betancourt Consult Reason/Comments: labial mass Do you want consulting provider notified?: Yes Primary care physician: Genia Lomax [facility] Course: Final diagnosis Symptomatic anemia with a hemoglobin of 6.7 on admission, multifactorial likely secondary to heavy menses recently, large labial mass that has been bleeding, and history of iron deficiency anemia Chest pain, ruled out ACS HIV positive history Large right labial mass with intermittent bleeding that patient has had for a few weeks, status post biopsy on 08/07/2023 by gynecology Diabetes mellitus, type II Hypertension History of renal disease Obesity with a BMI of 30.2 GI prophylaxis DVT prophylaxis Full code Discharge disposition Patient is being transferred in a stable condition with guarded prognosis to [facility]. Patient will follow-up with Dr. Ousmane Olivo in the outpatient setting upon discharge. Patient is to follow-up with cardiology, infectious disease, hematology outpatient as scheduled. Total time taken is greater than 35 minutes. Hospital course This is a 38-year-old female who was recently admitted with symptomatic anemia and associated chest pain. Patient also having groin tenderness and noted mass with some drainage of the genitalia. Patient reports has been having a labial mass that has been intermittently bleeding at times. Patient has also been having heavier periods and is still menstruating and patient also reports history of iron deficiency anemia. Other studies remain pending at this time. Patient was evaluated by cardiology recommending a 2D echo otherwise patient was cleared for discharge with outpatient follow-up. Patient did receive a unit of blood as her hemoglobin was 6.7 on admission to the ED and is improved currently at 8.3. Patient did have a biopsy obtained of the right labia by gynecology and was sent for analysis although had per nursing report large amount of blood from the biopsy site. Patient will need outpatient follow-up with gynecology as well. Recommended monitoring overnight for repeat CBC as patient was still reporting symptoms with possible discharge planning. After further review it was brought to our attention that patient's health insurance [place] was not in network for [facility] on and acquired services would be self-pay recommending transfer to an in network facility. Report was called to [facility] and accepted by Dr. Lazo after ensuring patient had an occult blood sample obtained to ensure there was no active bleeding noted from the GI. Occult was negative and patient is being transferred to [facility]. Please refer to other consultation notes for further HPI. Currently no reports of chest pain, shortness of breath, or palpitations. Patient is afebrile. No reports of nausea or vomiting and patient is tolerating diet. Patient will be transferred to [facility] via EMS today. Guarded prognosis Physical exam: Gen: This is a 38-year-old female who is awake, alert and oriented x 3, well- developed, well-nourished, obese HEENT: Head is atraumatic, normocephalic. Pupils equal, round. Sclerae is anicteric. NECK: Supple. No JVD. No lymphadenopathy. No thyromegaly. LUNGS: Clear to auscultation. No wheezes or rhonchi. No intercostal retractions. HEART: S1, S2 are muffled ABDOMEN: Soft. Bowel sounds are present. No masses. No tenderness. EXTREMITIES: No pedal edema. No calf tenderness. NEUROLOGICAL: Patient is awake, alert and oriented x3. Cranial nerves 2 through 12 are grossly intact. Skin: Large right-sided labia majora mass with some bleeding noted status post biopsy Please refer to medication reconciliation sheet for a list of medications. The impression and plan of care has been dictated by Amy Jimenez, Nurse Practitioner as directed. Dr. Geovani MD I have performed a history and examination and MDM of this patient, discussed the same with the dictator, and agree with the dictator's assessment and plan as written ,documented as a scribe. Based on total visit time, I have performed more than 50% of the visit. Patient Condition at Discharge: Stable Plan - Discharge Summary Discharge Rx Participant: No New Discharge Prescriptions: No Action INSULIN LISPRO (humaLOG) [humaLOG] See Protocol SQ AC-TID Insulin Glargine,Hum.rec.anlog [Basaglar Kwikpen U-100] 35 unit SQ HS Bictegrav/Emtricit/Tenofov Ala [Biktarvy 50-200-25 mg Tablet] 1 tab PO DAILY Albuterol Inhaler [Ventolin Hfa Inhaler] 2 puff INHALATION RT-QID PRN PRN Reason: Shortness Of Breath lisinopriL [Zestril] 20 mg PO BID Ergocalciferol [Vitamin D2 (1250 Mcg = 28075 Iu)] 1,250 mcg PO FR Magnesium Oxide [Magox 400] 400 mg PO TID Discharge Medication List INSULIN LISPRO (humaLOG) [humaLOG] See Protocol SQ AC-TID 10/09/14 [History] Insulin Glargine,Hum.rec.anlog [Basaglar Kwikpen U-100] 35 unit SQ HS 03/29/18 [History] Ergocalciferol [Vitamin D2 (1250 Mcg = 13164 Iu)] 1,250 mcg PO FR 01/28/22 [History] Magnesium Oxide [Magox 400] 400 mg PO TID 03/07/23 [History] Albuterol Inhaler [Ventolin Hfa Inhaler] 2 puff INHALATION RT-QID PRN 08/06/23 [History] Bictegrav/Emtricit/Tenofov Ala [Biktarvy 50-200-25 mg Tablet] 1 tab PO DAILY 08/06/23 [History] lisinopriL [Zestril] 20 mg PO BID 08/06/23 [History] Follow up Appointment(s)/Referral(s): Genia Lomax MD [Primary Care Provider] - 1 Week Activity/Diet/Wound Care/Special Instructions: Patient is going to [facility] per insurance guidelines and in network requirements. Patient has been accepted by Dr. Lazo at [facility]. Discharge Disposition: OTHER INSTITUTION NOT DEFINED
[2023-08-07] MEDS ORDERED: INSULIN DETEMIR (LEVEMIR) 100 UNIT/ML SYR SQ SCH (21:00)
[2023-08-07 21:56] LABS: % Iron Saturation 47.57 (12.00-45.00)
--- NOTE | 2023-08-08 06:57 | CA ---
Transthoracic Echo Report Name: Krysten Chu Age: 38 Gender: F : 1985 Exam Date: 08/07/2023 13:33 Exam Location: [facility] Ht (in): 61 Wt (lb): 160 Ordering Physician: Mary Kay Lopez Attending/Referring Phys: [id number], [facility] [employer] Heather Pacheco RDCS Procedure CPT: Indications: LV function, chest pain Cardiac Hx: Technical Quality: Fair Contrast 1: Total Dose (mL): Contrast 2: Total Dose (mL): MEASUREMENTS (Male / Female) Normal Values 2D ECHO LV Diastolic Diameter PLAX 5.0 cm 4.2 - 5.9 / 3.9 - 5.3 cm LV Systolic Diameter PLAX 3.1 cm IVS Diastolic Thickness 0.6 cm 0.6 - 1.0 / 0.6 - 0.9 cm LVPW Diastolic Thickness 0.7 cm 0.6 - 1.0 / 0.6 - 0.9 cm LV Relative Wall Thickness 0.3 Aortic Root Diameter 2.8 cm LA Systolic Diameter LX 3.6 cm 3.0 - 4.0 / 2.7 - 3.8 cm DOPPLER AV Peak Velocity 137.4 cm/s AV Peak Gradient 7.6 mmHg AV Mean Velocity 104.3 cm/s AV Mean Gradient 4.7 mmHg AV Velocity Time Integral 30.3 cm LVOT Peak Velocity 89.3 cm/s LVOT Peak Gradient 3.2 mmHg LVOT Velocity Time Integral 20.5 cm Mitral E Point Velocity 90.2 cm/s Mitral A Point Velocity 52.4 cm/s Mitral E to A Ratio 1.7 MV Deceleration Time 175.5 ms MV E' Velocity 11.5 cm/s Mitral E to MV E' Ratio 7.8 PV Peak Velocity 76.5 cm/s PV Peak Gradient 2.3 mmHg FINDINGS Left Ventricle Left ventricular ejection fraction is estimated at 55-60 %.normal left ventricular wall motion. Left ventricular cavity size normal. Normal left ventricular systolic function with no obvious regional wall motion abnormalities. Right Ventricle Normal right ventricular size and function. Right Atrium Right atrium not well visualized. Left Atrium Normal left atrial size. Mitral Valve Trace mitral regurgitation.structurally normal mitral valve. Aortic Valve Aortic valve not well visualized. Tricuspid Valve Trace tricuspid regurgitation.structurally normal tricuspid valve. Pulmonic Valve Pulmonic valve not well visualized. Pericardium No pericardial effusion. Aorta Normal size aortic root and proximal ascending aorta. CONCLUSIONS 1. Normal left ventricular size and systolic function 2. Limited Doppler study with trace mitral and tricuspid regurgitation Previewed by: Dr. Raul Morejon MD (Electronically Signed) Final Date: 08 August 2023 06:56
[2023-08-08] MEDS ORDERED: ERGOCALCIFEROL 1,250 MCG (50,000 IU) CAPSULE PO SCH (09:00)
== END 2023-08-07 19:16 | disposition other institution (70) ==
LOC: EC 17:07 → INTOOBSV 20:09 → 3SCARD 20:09
PROVIDERS: ADMIT Internal Medicine; ATTEND Internal Medicine
DX: C51.0 Malignant neoplasm of labium majus (principal); D50.9 Iron deficiency anemia, unspecified; R07.89 Other chest pain; Z21 Asymptomatic human immunodeficiency virus [HIV] infection status; E11.22 Type 2 diabetes mellitus with diabetic chronic kidney disease; I12.9 Hypertensive chronic kidney disease with stage 1 through stage 4 chronic kidney disease, or unspecified chronic kidney disease; N18.9 Chronic kidney disease, unspecified; D63.1 Anemia in chronic kidney disease; E66.9 Obesity, unspecified; Z68.30 Body mass index [BMI] 30.0-30.9, adult; Z79.4 Long term (current) use of insulin; Z79.899 Other long term (current) drug therapy
CPT/HCPCS: 56605; 96376; 96372 ×2; 96374; 36430; 99285; 36415; 93005; 93306; 86900; 86901; 85379; 88305; 80053; 80048; 82728; 83540 ×2; 83550 ×2; 83735; 84484 ×2; 85025 ×2; 85610; 85730; 86850; 86920; 82272; 88342; 83036; 71046; 74174; G0378 ×2; P9016; J2001; J1170; Q9967